=== PATIENT | female | born 1940 | race Caucasian/White ===

== ENCOUNTER 2019-04-28 16:28 | Observation (INO) | payer OTHER ==
[2019-04-28] MEDS ORDERED: MORPHINE 4 MG/ML SYR ONE (16:56)
[2019-04-28] MEDS ORDERED: ONDANSETRON 4 MG/2 ML VIAL ONE ×3 (16:56→21:24)
[2019-04-28 16:57] LABS: Absolute Lymphocytes (CBC) 3.3 K/uL (0.7-4.9); Basophils % 0.9 % (0-1.3); Hematocrit 40.9 % (36.0-45.0); Lymphocytes % 40.2 % (15.3-44.8); MPV 9.8 fL (7.6-11.3); RBC Red Blood Cell Count 4.47 M/uL (3.86-4.86)
[2019-04-28 17:05] LABS: Protime INR 0.97
--- NOTE | 2019-04-28 17:08 | RAD REPORT ---
EXAM DESCRIPTION: RAD - Chest Single View - 04/28/2019 4:56 pm CLINICAL HISTORY: CHEST PAIN COMPARISON: Two view chest April 25 TECHNIQUE: AP portable chest image was obtained 04/28/2019 4:56 pm . FINDINGS: Lungs are underinflated accentuating baseline interstitial pattern. No dense mass or conso lidation. No significant failure or volume overload. Heart and vasculature are normal. No measurable pleural effusion and no pneumothorax. No acute bony abnormality seen. No acute aortic findings suspec polo. IMPRESSION: No acute cardiopulmonary process. Baseline interstitial pattern is accentuated by shallow inspiration.
[2019-04-28 17:19] LABS: ALT/SGPT 22 U/L (12-78); AST/SGOT 21 U/L (15-37); Albumin 3.8 g/dL (3.4-5.0); Alkaline Phosphatase 96 U/L (45-117); BUN Blood Urea Nitrogen 22 mg/dL (7-18); Bicarbonate 26 mmol/L (21-32); Bilirubin Direct 0.1 mg/dL (0-0.2); Bilirubin Total 0.3 mg/dL (0.2-1.0); Glucose Level 87 mg/dL (74-106); Magnesium 2.2 mg/dL (1.8-2.4); NT PRO-BNP 472 pg/mL (<450); Potassium 4.2 mmol/L (3.5-5.1); Protein, Total 7.5 g/dL (6.4-8.2); Sodium Level 141 mmol/L (136-145); Troponin (Emerg Dept Use Only) < 0.02 ng/mL (0.0-0.045)
--- NOTE | 2019-04-28 17:53 | ER ---
Nurse's Notes [facility] Name: Elen Rapp Age: 79 yrs Sex: Female : 1940 Arrival Date: 04/28/2019 Time: 16:28 Bed 7 Private MD: Diagnosis: Chest pain, unspecified Presentation: 04/27 16:32 Chief complaint: Substernal chest pain, SOB, and nausea that started last night. Pain hb is described as pressure. Pt has heart cath scheduled next Monday with Dr. Mathew. Coronavirus screen: The patient has NOT traveled to a country currently being monitored by the [facility] within the last 14 days. The patient has NOT had contact with any known and/or suspected case of coronavirus. Proceed with normal triage procedures. Ebola Screen: No symptoms or risks identified at this time. Initial Sepsis Screen: Does the patient meet any 2 criteria? No. Patient's initial sepsis screen is negative. Does the patient have a suspected source of infection? No. Patient's initial sepsis screen is negative. Risk Assessment: Do you want to hurt yourself or someone else? Patient reports no desire to harm self or others. 16:32 Method Of Arrival: Ambulatory hb 16:32 Acuity: YAZ 3 hb Historical: - Allergies: 16:34 Propofol; hb - Home Meds: 16:37 levothyroxine oral [Active]; Lasix Oral [Active]; carvedilol oral oral [Active]; hb losartan oral oral [Active]; Oxybutynin Chloride Oral [Active]; alendronate oral oral [Active]; Vitamin D3 oral oral [Active]; - PMHx: 16:37 Hypertension; hb - Immunization history:: Adult Immunizations up to date. - Social history:: Smoking status: Patient denies any tobacco usage or history of. Screenin:37 Abuse screen: Denies threats or abuse. Denies injuries from another. Nutritional hb screening: No deficits noted. Tuberculosis screening: No symptoms or risk factors identified. Fall Risk None identified. Assessment: 16:40 General: Appears in no apparent distress. Behavior is cooperative, anxious. Pain: hb Complains of pain in chest Pain does not radiate. Pain currently is 7 out of 10 on a pain scale. Quality of pain is described as pressure, Pain began last night Is intermittent, lasting a few minutes. Neuro: Level of Consciousness is awake, alert, obeys commands, Oriented to person, place, time, situation. Cardiovascular: Heart tones S1 S2 present Capillary refill < 3 seconds Patient's skin is warm and dry. Respiratory: Airway is patent Respiratory effort is even, unlabored, Respiratory pattern is regular, symmetrical, Breath sounds are clear bilaterally. GI: No signs and/or symptoms were reported involving the gastrointestinal system. : No signs and/or symptoms were reported regarding the genitourinary system. EENT: No signs and/or symptoms were reported regarding the EENT system. Derm: Skin is pink, warm \T\ dry. Musculoskeletal: No signs and/or symptoms reported regarding the musculoskeletal system. 17:30 Reassessment: Patient appears in no apparent distress at this time. Patient and/or hb family updated on plan of care and expected duration. Pain level reassessed. Patient is alert, oriented x 3, equal unlabored respirations, skin warm/dry/pink. Patient denies pain at this time. Patient states symptoms have improved. 18:25 Reassessment: Patient appears in no apparent distress at this time. Patient and/or hb family updated on plan of care and expected duration. Pain level reassessed. Patient is alert, oriented x 3, equal unlabored respirations, skin warm/dry/pink. Admission ordered, awaiting room assignment at this time. Family at bedside. Patient denies pain at this time. Patient states feeling better. 19:30 General: Appears in no apparent distress. uncomfortable, Behavior is calm, cooperative, rr5 appropriate for age, for transfer to room 414. Pain: Denies pain. Neuro: Level of Consciousness is awake, alert, obeys commands, Oriented to person, place, time, situation. Cardiovascular: Capillary refill < 3 seconds Patient's skin is warm and dry. Respiratory: Airway is patent Respiratory effort is even, unlabored, Respiratory pattern is regular, symmetrical. GI: Reports nausea. : No signs and/or symptoms were reported regarding the genitourinary system. EENT: No signs and/or symptoms were reported regarding the EENT system. Derm: Skin is intact, is healthy with good turgor, Skin temperature is warm. Musculoskeletal: No signs and/or symptoms reported regarding the musculoskeletal system. Vital Signs: 16:32 BP 145 / 68; Pulse 69; Resp 16; Temp 98.2; Pulse Ox 100% ; Weight 86.18 kg; Height 5 hb ft. 3 in. (160.02 cm); Pain 7/10; 17:22 BP 131 / 53; Pulse 56; Resp 16; Pulse Ox 97% ; sv 18:15 BP 122 / 94; Pulse 88; Resp 16; Pulse Ox 98% on R/A; Pain 0/10; hb 19:14 BP 115 / 67; Pulse 62; Resp 16; Temp 98.3; Pulse Ox 99% ; Pain 0/10; rr5 16:32 Body Mass Index 33.66 (86.18 kg, 160.02 cm) hb ED Course: 16:28 Patient arrived in ED. mr 16:32 Alma Soto, RN is Primary Nurse. hb 16:34 Triage completed. hb 16:34 Arm band placed on. hb 16:37 Patient has correct armband on for positive identification. Placed in gown. Bed in low hb position. Call light in reach. satellite project site monitor on. Pulse ox on. NIBP on. 16:37 Oxygen administration via nasal cannula. hb 16:40 Leighton Wilcox, AUDITOR APPRAISER is PHCP. pm1 16:40 Yuriy Hamilton MD is Attending Physician. pm1 16:45 EKG done, by ED staff, reviewed by Yuriy Hamilton MD. kj1 16:55 XRAY Chest (1 view) In Process Unspecified. EDMS 17:00 Initial lab(s) drawn, by az, sent to lab. Inserted saline lock: 22 gauge in right kj1 antecubital area, using aseptic technique. Blood collected. 17:52 Chong Sanford is Hospitalizing Provider. pm1 19:33 No provider procedures requiring assistance completed. Patient admitted, IV remains in rr5 place. intact, No redness/swelling at site. Administered Medications: 16:56 Drug: morphine 4 mg Route: IVP; Site: right antecubital; hb 17:25 Follow up: Response: No adverse reaction hb 16:56 Drug: Zofran (Ondansetron) 4 mg Route: IVP; Site: right antecubital; hb 17:25 Follow up: Response: No adverse reaction hb 18:30 Drug: Lovenox 1 mg/kg Route: Sub-Q; Site: abdomen; hb 19:36 Follow up: Response: No adverse reaction rr5 18:30 Drug: Aspirin 325 mg Route: PO; hb 19:36 Follow up: Response: No adverse reaction rr5 19:23 Drug: Zofran (Ondansetron) 4 mg Route: IVP; Site: right antecubital; rr5 19:36 Follow up: Response: No adverse reaction rr5 Outcome: 17:52 Decision to Hospitalize by Provider. pm1 19:33 Admitted to Tele accompanied by tech, via stretcher, room 414, with chart, Report rr5 called to mariely 19:33 Condition: stable 19:33 Instructed on the need for admit. 20:01 Patient left the ED. rr5 Signatures: Dispatcher [employer] EDBella Lynne RN RN sv Rivera, Mary mr Marinas, Patrick, AUDITOR APPRAISER AUDITOR APPRAISER pm1 Alma Soto, Ernst Harrison RN, RN RN rr5 Trish Greene kj1
--- NOTE | 2019-04-28 17:53 | EDPHYS ---
Physician Documentation [facility] Name: Elen Rapp Age: 79 yrs Sex: Female : 1940 Arrival Date: 04/28/2019 Time: 16:28 Bed 7 Private MD: ED Physician Yuriy Hamilton HPI: 04/27 17:05 This 79 yrs old Female presents to ER via Ambulatory with complaints of Chest pm1 Pain. 17:05 The patient or guardian reports chest pain that is located primarily in the mid-sternal pm1 area. Onset: last night. The pain does not radiate. Associated signs and symptoms: Pertinent positives: shortness of breath, Pertinent negatives: abdominal pain, cough, diaphoresis, dizziness, nausea, palpitations, vomiting. The chest pain is described as a pressure. Duration: The patient or guardian reports a single episode, that is still ongoing, but improving. Modifying factors: The symptoms are alleviated by nothing. the symptoms are aggravated by nothing. Severity of pain: At its worst the pain was Started as 5/10 last night and at it's worse 8/10, in the emergency department the pain is a 5 / 10. The patient has been recently seen by a physician: Dr. Kumar last week for her on and off chest pain for the last month. Patient had stress test last week that was abnormal and she is scheduled for a cardiac cath on Monday. Historical: - Allergies: 16:34 Propofol; hb - Home Meds: 16:37 levothyroxine oral [Active]; Lasix Oral [Active]; carvedilol oral oral [Active]; hb losartan oral oral [Active]; Oxybutynin Chloride Oral [Active]; alendronate oral oral [Active]; Vitamin D3 oral oral [Active]; - PMHx: 16:37 Hypertension; hb - Immunization history:: Adult Immunizations up to date. - Social history:: Smoking status: Patient denies any tobacco usage or history of. ROS: 17:05 Constitutional: Negative for fever, chills, and weight loss. pm1 17:05 Abdomen/GI: Negative for abdominal pain, nausea, vomiting, diarrhea, and constipation, Back: Negative for injury and pain. 17:05 MS/Extremity: Negative for injury and deformity, Skin: Negative for injury, rash, and discoloration, Neuro: Negative for headache, weakness, numbness, tingling, and seizure. 17:05 Cardiovascular: Positive for chest pain, Negative for edema, orthopnea, palpitations. 17:05 Respiratory: Positive for shortness of breath, Negative for cough, sputum production, wheezing. 17:05 All other systems are negative. Exam: 17:05 Constitutional: This is a well developed, well nourished patient who is awake, alert, pm1 and in no acute distress. Head/Face: Normocephalic, atraumatic. Neck: Trachea midline, no thyromegaly or masses palpated, and no cervical lymphadenopathy. Supple, full range of motion without nuchal rigidity, or vertebral point tenderness. No Meningismus. Chest/axilla: Normal chest wall appearance and motion. Nontender with no deformity. No lesions are appreciated. Cardiovascular: Regular rate and rhythm with a normal S1 and S2. No gallops, murmurs, or rubs. No pulse deficits. Respiratory: Lungs have equal breath sounds bilaterally, clear to auscultation and percussion. No rales, rhonchi or wheezes noted. No increased work of breathing, no retractions or nasal flaring. Abdomen/GI: Soft, non-tender, with normal bowel sounds. No distension or tympany. No guarding or rebound. No evidence of tenderness throughout. Back: No spinal tenderness. No costovertebral tenderness. Full range of motion. Skin: Warm, dry with normal turgor. Normal color with no rashes, no lesions, and no evidence of cellulitis. MS/ Extremity: Pulses equal, no cyanosis. Neurovascular intact. Full, normal range of motion. 17:05 Neuro: Orientation: is normal, Motor: is normal, moves all fours. Vital Signs: 16:32 BP 145 / 68; Pulse 69; Resp 16; Temp 98.2; Pulse Ox 100% ; Weight 86.18 kg; Height 5 hb ft. 3 in. (160.02 cm); Pain 7/10; 17:22 BP 131 / 53; Pulse 56; Resp 16; Pulse Ox 97% ; sv 18:15 BP 122 / 94; Pulse 88; Resp 16; Pulse Ox 98% on R/A; Pain 0/10; hb 19:14 BP 115 / 67; Pulse 62; Resp 16; Temp 98.3; Pulse Ox 99% ; Pain 0/10; rr5 16:32 Body Mass Index 33.66 (86.18 kg, 160.02 cm) hb MDM: 16:43 Patient medically screened. jacques 17:24 ED course: Patient is chest pain free with morphine given in the ER. pm1 17:27 Data reviewed: vital signs. Data interpreted: Pulse oximetry: on room air is 97 %. pm1 Interpretation: normal. 17:27 Counseling: I had a detailed discussion with the patient and/or guardian regarding: the pm1 historical points, exam findings, and any diagnostic results supporting the discharge/admit diagnosis, lab results, radiology results, the need for further work-up and treatment in the hospital. 17:33 Physician consultation: Chong Sanford was contacted at 17:33, regarding admission, pm1 patient's condition, would like me to contact Dr. Zambrano prior to admission. 17:45 Physician consultation: Christopher Mathew MD was called at 17:33, was contacted at 17:43, pm1 regarding consult, patient's condition, and will see patient tomorrow, Wants one does of Lovenox and continue patient's aspirin and blood pressure medications. 04/27 16:40 Order name: Basic Metabolic Panel; Complete Time: 17:24 pm1 04/27 16:40 Order name: CBC with Diff; Complete Time: 17:12 pm1 04/27 16:40 Order name: LFT's; Complete Time: 17:24 pm1 04/27 16:40 Order name: Magnesium; Complete Time: 17:24 pm1 04/27 16:40 Order name: NT PRO-BNP; Complete Time: 17:24 pm1 04/27 16:40 Order name: PT-INR; Complete Time: 17:12 pm1 04/27 16:40 Order name: Troponin (emerg Dept Use Only); Complete Time: 17:24 pm1 04/27 16:40 Order name: XRAY Chest (1 view); Complete Time: 17:12 pm1 04/27 16:40 Order name: EKG; Complete Time: 16:42 pm1 04/27 16:40 Order name: Cardiac monitoring; Complete Time: 16:50 pm1 04/27 16:41 Order name: EKG - Nurse/Tech; Complete Time: 16:50 pm1 04/27 16:41 Order name: IV Saline Lock; Complete Time: 16:50 pm1 04/27 16:41 Order name: Labs collected and sent; Complete Time: 16:50 pm1 04/27 16:41 Order name: O2 Per Protocol; Complete Time: 16:50 pm1 04/27 16:41 Order name: O2 Sat Monitoring; Complete Time: 16:50 pm1 Administered Medications: 16:56 Drug: morphine 4 mg Route: IVP; Site: right antecubital; hb 17:25 Follow up: Response: No adverse reaction hb 16:56 Drug: Zofran (Ondansetron) 4 mg Route: IVP; Site: right antecubital; hb 17:25 Follow up: Response: No adverse reaction hb 18:30 Drug: Lovenox 1 mg/kg Route: Sub-Q; Site: abdomen; hb 19:36 Follow up: Response: No adverse reaction rr5 18:30 Drug: Aspirin 325 mg Route: PO; hb 19:36 Follow up: Response: No adverse reaction rr5 19:23 Drug: Zofran (Ondansetron) 4 mg Route: IVP; Site: right antecubital; rr5 19:36 Follow up: Response: No adverse reaction rr5 Disposition: 04/28 10:37 Co-signature as Attending Physician, Yuriy Hamilton MD I agree with the assessment and jacques plan of care. Disposition: 04/28/19 17:52 Hospitalization ordered by Chong Sanford for Inpatient Admission. Preliminary diagnosis is Chest pain, unspecified. - Bed requested for Telemetry/MedSurg (Inpatient). - Status is Inpatient Admission. rr5 - Condition is Stable. - Problem is new. - Symptoms have improved. Signatures: Dispatcher [employer] EDID Leidy Horta RN RN dw Anderson, Corey, MD MD cha Marinas, Patrick, PLATE SETTER PLATE SETTER pm1 Alma Soto RN RN hb Roque, Raymond, RN RN rr5 Corrections: (The following items were deleted from the chart) 04/27 19:07 17:52 Hospitalization Ordered by Chong Sanford for Inpatient Admission. Preliminary dw diagnosis is Chest pain, unspecified. Bed requested for Telemetry/MedSurg (Inpatient). Status is Inpatient Admission. Condition is Stable. Problem is new. Symptoms have improved. pm1 20:01 19:07 04/28/2019 17:52 Hospitalization Ordered by Chong Sanford for Inpatient rr5 Admission. Preliminary diagnosis is Chest pain, unspecified. Bed requested for Telemetry/MedSurg (Inpatient). Status is Inpatient Admission. Condition is Stable. Problem is new. Symptoms have improved. dw
[2019-04-28] MEDS ORDERED: ASPIRIN 325 MG TAB ONE (18:15)
[2019-04-28] MEDS ORDERED: ENOXAPARIN 80 MG/0.8 ML SQ ONE (18:15)
--- NOTE | 2019-04-28 18:35 | P.HP ---
Certification for Inpatient Patient admitted to: Observation With expected LOS: <2 Midnights Practitioner: I am a practitioner with admitting privileges, knowledge of patient current condition, hospital course, and medical plan of care. Services: Services provided to patient in accordance with Admission requirements found in Title 42 Section 412.3 of the Code of Federal Regulations Patient History Date of Service: 04/28/19 Reason for admission: Chest pain History of Present Illness: 79-year-old man with a history of hypothyroidism and factor V laden presented to the ED with a complaint of recurrent chest pain which has become progressively worse. Patient is being followed by Dr. Mathew. She recently had a stress test done which was reported as abnormal. Patient is planned for cardiac catheterization. She presents to the ED today with a complaint of chest pain, maximum intensity 8/10, relieved by morphine, chest pain not reproducible by palpation. Her initial troponin in the ED is negative. EKG report Q-waves in lead V1 and V2 and poor R-wave progression. Chest x-ray shows no acute disease. Dr. Mathew was informed by the ED provider the recommended a shot of full dose Lovenox and hospitalization for him to evaluate in a.m. Allergies propofol Allergy (Verified 04/26/19 08:41) Anaphylaxis - Past Medical/Surgical History -: Hypothyroidism -: Factor V Laden deficiency -: Hysterectomy -: CS - Social History Smoking Status: Former smoker Alcohol use: Yes CD- Drugs: No Place of Residence: Home Review of Systems Other: Except as documented, all other systems reviewed and negative. Physical Examination - Physical Exam General: Alert, In no apparent distress, Oriented x3 HEENT: Normocephalic, Mucous membr. moist/pink, Sclerae nonicteric Neck: Supple, JVD not distended Respiratory: Clear to auscultation bilaterally, Normal air movement Cardiovascular: Regular rate/rhythm, Normal S1 S2, No murmurs, Edema (Trace bilateral lower extremity pitting edema) Capillary refill: <2 Seconds Gastrointestinal: Normal bowel sounds, Soft and benign, Non-distended, No tenderness Musculoskeletal: No swelling, No erythema Integumentary: No rashes, No tenderness/swelling Neurological: Normal speech, Normal strength at 5/5 x4 extr - Studies Laboratory Data (last 24 hrs) 04/28/19 16:50: PT 11.5, INR 0.97 04/28/19 16:50: WBC 8.2 D, Hgb 13.7, Hct 40.9, Plt Count 251 04/28/19 16:50: Sodium 141, Potassium 4.2, BUN 22 H, Creatinine 1.07, Glucose 87 , Magnesium 2.2, Total Bilirubin 0.3, AST 21, ALT 22, Alkaline Phosphatase 96 Assessment and Plan - Problems (Diagnosis) (1) Chest pain Current Visit: Yes Status: Acute (2) Hypothyroidism Current Visit: Yes Status: Chronic (3) Factor 5 Leiden mutation, heterozygous Current Visit: Yes Status: Chronic - Plan Place under observation Continue to trend troponin Full-dose Lovenox given in the ED Aspirin, plavix Beta-tc, blood pressure control. Statins NTG p.r.n. Cardiology consult. Check TSH and continue Synthroid - Advance Directives Does patient have a Living Will: No Does patient have a Durable POA for Healthcare: No - Code Status/Comfort Care Code Status Assessed: Yes Code Status: Full Code
[2019-04-28] MEDS ORDERED: MORPHINE 4 MG/ML SYR IV PRN (20:31)
[2019-04-28] MEDS ORDERED: NITROGLYCERIN 0.4 MG/TAB SL PRN (20:31)
[2019-04-28] MEDS: METOPROLOL TAR 50 MG TAB PO SCH (21:00)
[2019-04-28 21:09] LABS: HDL Cholesterol 50 mg/dL (40-60); LDL Cholesterol, Calculated 117 (<130); Troponin I < 0.02 ng/mL (0.0-0.045)
[2019-04-28] MEDS ORDERED: ONDANSETRON 4 MG/2 ML VIAL IV PRN (21:21)
[2019-04-28 22:33] VITALS: BMI 33.6
--- NOTE | 2019-04-28 23:05 | CON ---
Date of Consultation: 04/28/2019 Reason For Consultation: Chest pain. History Of Present Illness: Ms. Taylor is a patient who is 79 years old who I saw in the office re cently for chest pain and had a positive stress test. She was actually scheduled to have a catheteri zation as an outpatient on April 30, 2019, but she came into the hospital today with a 6/10 chest balta n unrelieved with nitroglycerin, unremarkable EKG and troponin. She denied PND, orthopnea, pedal shirin ma, palpitations, or syncope. Her chest pain was substernal, radiated to the left arm, had some shor tness of breath with it. Had no fevers or chills. Has some diaphoresis. Past Medical History: Include hypertension, osteoporosis, hypothyroidism. Allergies: PROPOFOL. Review of Systems: Negative. Social History: Negative. Family History: Noncontributory. Physical Examination: Vital Signs: Blood pressure was 145/68, pulse of 69, respiratory rate 16, she was afebrile. Oxygen saturation was 100%. She weighed 86 kg. She was in a sinus rhythm. She was in no acute distress. HEENT: Negative. Neck: Supple with no bruit. Chest: Clear to auscultation and percussion. Cardiac: Reveals a regular rhythm and rate. No murmurs, gallops, or rubs. Abdomen: Benign. Extremities: Revealed no clubbing, cyanosis, or edema. Diagnostic Data: Chest x-ray was negative. Her CBC was normal. She had a BNP of 472 with a negativ e troponin. Her creatinine was 1.07. EKG is unremarkable. Impression And Plan: Ms. Taylor is a patient who has hypertension, had an abnormal stress test, ch est pain that is consistent with angina. She had planned to have a catheterization as an outpatient on Monday, but got admitted today. We will plan for catheterization tomorrow. Patient understands the risks and the benefits of the procedure and she agrees to proceed. Her other problems include hy pothyroidism status post hysterectomy. NB/MODL Voice ID: [id number] Report ID: [id number]
[2019-04-29] MEDS ORDERED: LIDOCAINE 1% 20 ML MDV ONE (06:53)
[2019-04-29] MEDS ORDERED: HEPA 1000U/500MLS 2,000 UNIT/1,000 ML BAG IV ONE (06:53)
--- NOTE | 2019-04-29 06:56 | EKG ---
Test Date: 2019-04-28 Test Time: 16:36:47 Bobcat Driver/Labor: TANMAY MEASUREMENT RESULTS: Intervals: Rate: 59 RI: 160 QRSD: 84 QT: 430 QTc: 425 [place]: P: 48 RI: 160 QRS: 8 T: 66 INTERPRETIVE STATEMENTS: Sinus bradycardia Septal infarct, age undetermined Abnormal ECG Compared to ECG 04/26/2019 07:59:29 Myocardial infarct finding now present Electronically Signed On 04-29-19 06:54:48 CDT by Christopher Mathew
[2019-04-29] MEDS ORDERED: HEPARIN 5000 UNIT/ML 1 ML VIAL ONE (07:18)
[2019-04-29] MEDS ORDERED: MIDAZOLAM HCL 2 MG/2 ML INJ ONE ×2 (07:18→08:08)
[2019-04-29] MEDS ORDERED: FENTANYL CITR 100 MCG/2 ML ONE (07:19)
[2019-04-29] MEDS ORDERED: NITROGLYCERIN 100 MCG/ML SYR (for cath lab use only) IV ONE (07:19)
[2019-04-29] MEDS ORDERED: NA CHLORIDE 0.9% 0 ML ONE (07:19)
[2019-04-29] MEDS ORDERED: ATROPINE SULF 1 MG/10 ML SYR IV ONE (07:19)
[2019-04-29] MEDS ORDERED: NICARDIPINE HCL 25 MG/10 ML IV ONE (07:19)
[2019-04-29] MEDS ORDERED: NITROGLYCERIN/D5W 0 MG/0 ML BTL IV ONE (07:19)
[2019-04-29] MEDS ORDERED: NA CHLORIDE 0.9% 500 ML ONE (07:45)
[2019-04-29] MEDS ORDERED: ASPIRIN EC 81 MG TAB PO SCH (09:00)
[2019-04-29] MEDS: METOPROLOL TAR 50 MG TAB PO SCH (09:00)
--- NOTE | 2019-04-29 11:00 | P.DS ---
Addendum entered and electronically signed by Сергей Bond PA 04/29/19 11:12 : Diagnosis: Osteoporosis, HTN, HF, Hypothyroidism, Overactive Bladder, Acute Chest Pain unspecified Original Note: Admission Date: 04/28/19 Discharge Date: 04/29/19 Primary Care Provider: PCP Reason for Admission: Chest pain Consultations: Dr. Mathew Procedures: Angiogram Brief History of Present Illness: 79-year-old man with a history of hypothyroidism and factor V laden presented to the ED with a complaint of recurrent chest pain which has become progressively worse. Patient is being followed by Dr. Mathew. She recently had a stress test done which was reported as abnormal. Patient is planned for cardiac catheterization. She presents to the ED yesterday with a complaint of chest pain, maximum intensity 8/10, relieved by morphine, chest pain not reproducible by palpation. Her initial troponin in the ED is negative. EKG report Q-waves in lead V1 and V2 and poor R-wave progression. Chest x-ray shows no acute disease. Dr. Mathew was informed by the ED provider the recommended a shot of full dose Lovenox and hospitalization for him to evaluate in a.m. Hospital Course: Patient underwent angiogram this AM which did not reveal acute blockage. Patient remained stable overnight and did well during catherization and post cath. Will d/c home today to f/u with PCP and Dr. Mathew. No other interventions need to be done at this time and no other new medications need to be started. Labs have remained stable. <Сергей Bond - Last Filed: 04/29/19 10:54> Admission Date: 04/28/19 Discharge Date: 04/29/19 Procedures: Heart Cath: Surgeon: Sidney White MD Identification: 79-year-old woman. Procedure: Left heart catheterization with coronary left ventricular angiography. Procedure Findings: The patient has normal coronary arteries. Normal left ventricular ejection fraction. Normal segmental wall motion. Normal pressures and therefore the stress test is a false positive. Her symptoms are believed to be not related to the heart. Complications: From the procedure none. Estimated Blood Loss: 10 cc. Medical problem list: Chest pain status post heart catheterization showing normal coronaries and ejection fraction Chronic diastolic CHF Hypothyroidism Hypertension Hospital Course: Case discussed and reviewed with TELLO Mooney Patient presented with chest pain. Patient was evaluated by Cardiology. Cardiology recommended heart catheterization to further evaluate. Heart catheterization showed normal coronaries and ejection fraction. No further intervention was required. At discharge patient will continue with her current medications. Patient may follow up with cardiology as an outpatient. Patient with history of hypertension, hypothyroidism and chronic diastolic CHF. Patient will continue with her current medications. Recommend to continue a 1500 cc per day fluid restriction and low-salt diet. Patient to monitor her weight daily. If her weight increases by more than 5 lb she is to contact her PCP for further recommendation. Patient may need to see GI as an outpatient if chest pain persists in consideration of normal heart catheterization. Patient would likely benefit with a EGD. This can be further addressed as an outpatient. <Terence Villagran - Last Filed: 04/29/19 17:56> Disposition: ROUTINE DISCHARGE Discharge Condition: GOOD Vital Signs/Physical Exam: Temp Pulse Resp BP Pulse Ox 98.1 F 58 18 124/58 L 99 04/29/19 10:05 04/29/19 10:05 04/29/19 10:05 04/29/19 10:05 04/29/19 09:33 General: Alert, In no apparent distress, Oriented x3 HEENT: Normocephalic, PERRLA, Mucous membr. moist/pink, EOMI Neck: Supple, JVD not distended Respiratory: Clear to auscultation bilaterally, Normal air movement Cardiovascular: No edema, Normal pulses, Regular rate/rhythm, Normal S1 S2, No gallops, No rubs, No murmurs Capillary refill: <2 Seconds Gastrointestinal: Normal bowel sounds, Soft and benign, Non-distended, No ascites, No tenderness, No masses, No rebound, No guarding Musculoskeletal: No clubbing, No swelling, No contractures, No erythema, No tenderness, No warmth Integumentary: No rashes, No breakdown, No significant lesion, No tenderness/ swelling, No erythema, No warmth, No cyanosis Neurological: Normal speech, Normal strength at 5/5 x4 extr, Normal tone, Sensation intact, Cranial nerves 3-12 intact, Normal reflexes 2+, Normal affect Lymphatics: No axilla or inguinal lymphadenopathy Laboratory Data at Discharge: WBC 8.2 K/uL (4.3-10.9) D 04/28/19 16:50 Hgb 13.7 g/dL (12.0-15.0) 04/28/19 16:50 Hct 40.9 % (36.0-45.0) 04/28/19 16:50 Plt Count 251 K/uL (152-406) 04/28/19 16:50 PT 11.5 SECONDS (9.5-12.5) 04/28/19 16:50 INR 0.97 04/28/19 16:50 Sodium 141 mmol/L (136-145) 04/28/19 16:50 Potassium 4.2 mmol/L (3.5-5.1) 04/28/19 16:50 BUN 22 mg/dL (7-18) H 04/28/19 16:50 Creatinine 1.07 mg/dL (0.55-1.3) 04/28/19 16:50 Glucose 87 mg/dL (74-106) 04/28/19 16:50 Magnesium 2.2 mg/dL (1.8-2.4) 04/28/19 16:50 Total Bilirubin 0.3 mg/dL (0.2-1.0) 04/28/19 16:50 AST 21 U/L (15-37) 04/28/19 16:50 ALT 22 U/L (12-78) 04/28/19 16:50 Alkaline Phosphatase 96 U/L (45-117) 04/28/19 16:50 Troponin I < 0.02 ng/mL (0.0-0.045) 04/29/19 00:54 Triglycerides 99 mg/dL (<150) 04/28/19 20:43 Cholesterol 187 mg/dL (<200) 04/28/19 20:43 HDL Cholesterol 50 mg/dL (40-60) 04/28/19 20:43 Cholesterol/HDL Ratio 3.74 04/28/19 20:43 <Сергей Bond - Last Filed: 04/29/19 10:54> Vital Signs/Physical Exam: Temp Pulse Resp BP Pulse Ox 98.9 F 67 18 116/58 L 97 04/29/19 13:35 04/29/19 13:35 04/29/19 13:35 04/29/19 13:35 04/29/19 12:00 Laboratory Data at Discharge: WBC 8.2 K/uL (4.3-10.9) D 04/28/19 16:50 Hgb 13.7 g/dL (12.0-15.0) 04/28/19 16:50 Hct 40.9 % (36.0-45.0) 04/28/19 16:50 Plt Count 251 K/uL (152-406) 04/28/19 16:50 PT 11.5 SECONDS (9.5-12.5) 04/28/19 16:50 INR 0.97 04/28/19 16:50 Sodium 141 mmol/L (136-145) 04/28/19 16:50 Potassium 4.2 mmol/L (3.5-5.1) 04/28/19 16:50 BUN 22 mg/dL (7-18) H 04/28/19 16:50 Creatinine 1.07 mg/dL (0.55-1.3) 04/28/19 16:50 Glucose 87 mg/dL (74-106) 04/28/19 16:50 Magnesium 2.2 mg/dL (1.8-2.4) 04/28/19 16:50 Total Bilirubin 0.3 mg/dL (0.2-1.0) 04/28/19 16:50 AST 21 U/L (15-37) 04/28/19 16:50 ALT 22 U/L (12-78) 04/28/19 16:50 Alkaline Phosphatase 96 U/L (45-117) 04/28/19 16:50 Troponin I < 0.02 ng/mL (0.0-0.045) 04/29/19 00:54 Triglycerides 99 mg/dL (<150) 04/28/19 20:43 Cholesterol 187 mg/dL (<200) 04/28/19 20:43 HDL Cholesterol 50 mg/dL (40-60) 04/28/19 20:43 Cholesterol/HDL Ratio 3.74 04/28/19 20:43 <Terence Villagran - Last Filed: 04/29/19 17:56> Patient Discharge Instructions: Patient to rest for next couple of days. To watch for bleeding or hematoma from catheterization site. Needs to Follow up with Dr. Mathew as requested for f/u on catheterization. To continue home medications as prescribed. Low sodium diet. 1500 ml fluid restriction per day to insure she does not volume overload. If worse to come back to ED for further evaluation Diet: Low sodium Activity: Ad elda Time spent managing pt's care (in minutes): 30 <Сергей Bond - Last Filed: 04/29/19 10:54> <Terence Villagran - Last Filed: 04/29/19 17:56> Home Medications: Alendronate Sodium 35 mg PO EVERY 7TH DAY 04/29/19 Carvedilol [Coreg] 3.125 mg PO DAILY 04/29/19 Cholecalciferol (Vitamin D3) [Vitamin D3] 125 mcg PO DAILY 04/29/19 Furosemide [Lasix*] 20 mg PO DAILY 04/29/19 Levothyroxine [Synthroid*] 100 mcg PO [id number] 04/29/19 Losartan Potassium 25 mg PO DAILY 04/29/19 Oxybutynin Chloride [Ditropan*] 5 mg PO BID 04/29/19 Followup: Christopher Mathew MD [ACTIVE - CAN ADMIT] -
--- NOTE | 2019-04-29 12:15 | OP ---
Surgeon: Sidney White MD Identification: 79-year-old woman. Procedure: Left heart catheterization with coronary left ventricular angiography. Procedure Findings: The patient has normal coronary arteries. Normal left ventricular ejection frac tion. Normal segmental wall motion. Normal pressures and therefore the stress test is a false posit david. Her symptoms are believed to be not related to the heart. Procedure In Detail: The patient was brought to the cardiac flower shop laborer/designer fasting. She failed a Barbeau test, so we abandoned any thoughts of using a radial approach, we used the right femoral approach. T he patient was prepared and draped in usual sterile fashion, sedated with Versed and fentanyl. Right femoral artery was identified through palpation. Tissues around the artery were anesthetized using 1% lidocaine. The artery was entered using an 18-gauge needle, cannulated with a short 0.035 J-wire and then a 4-Welsh sheath was placed. We flushed the sheath and used it to place a 4-Welsh JL4, 4- Welsh 3DRC, 4-Welsh angled pigtail into their respective locations. Catheters were removed over a J-wire. At the end of the procedure when it was evident no intervention would be indicated, we took a sheath shot through the sheath and elected to use a StarClose device to close the arteriotomy. Complications: From the procedure none. Estimated Blood Loss: 10 cc. Hassock Maker: Marilynn Gaona. RENNY/EMILY Voice ID: [id number] Report ID: [id number]
[2019-04-29 13:52] VITALS: BP 116/58; O2SAT 98
[2019-04-29 14:10] VITALS: TEMP 98.9
== END 2019-04-29 14:11 | disposition home or self-care (01) ==
LOC: ER 16:28 → ERHOLD 18:53 → 4TH 19:34
PROVIDERS: ADMIT Internal Medicine; ATTEND Family Medicine
DX: R07.9 Chest pain, unspecified (principal); R94.39 Abnormal result of other cardiovascular function study; E03.9 Hypothyroidism, unspecified; D68.51 Activated protein C resistance; I11.0 Hypertensive heart disease with heart failure; I50.22 Chronic systolic (congestive) heart failure; R00.1 Bradycardia, unspecified; R94.31 Abnormal electrocardiogram [ECG] [EKG]; I65.21 Occlusion and stenosis of right carotid artery; I70.208 Unspecified atherosclerosis of native arteries of extremities, other extremity; I83.93 Asymptomatic varicose veins of bilateral lower extremities; M81.0 Age-related osteoporosis without current pathological fracture; E66.9 Obesity, unspecified; Z79.899 Other long term (current) drug therapy; Z95.1 Presence of aortocoronary bypass graft; Z87.891 Personal history of nicotine dependence
CPT/HCPCS: 93005; 85025; 80048; 36415; 83735; 85610; 80061; 80076; 84484 ×3; 83880; 71045; 93458; 94760; 96375; 96372; 96374; 99285; C1893; J2250 ×2; J3010; J1650; J7040; J2405 ×3; G0378 ×3; J0583; J1644

== ENCOUNTER 2020-02-14 06:09 | Inpatient (IN) | payer OTHER ==
[2020-02-14 06:55] LABS: Basophils % 0.9 % (0-1.3); Hematocrit 44.4 % (36.0-45.0); MPV 10.4 fL (7.6-11.3); RBC Red Blood Cell Count 4.89 M/uL (3.86-4.86)
[2020-02-14 07:02] LABS: ALT/SGPT 29 U/L (12-78); AST/SGOT 21 U/L (15-37); Albumin 3.9 g/dL (3.4-5.0); Alkaline Phosphatase 110 U/L (45-117); BUN Blood Urea Nitrogen 23 mg/dL (7-18); Bicarbonate 28 mmol/L (21-32); Bilirubin Direct < 0.1 mg/dL (0-0.2); Bilirubin Total 0.4 mg/dL (0.2-1.0); Glucose Level 164 mg/dL (74-106); Lipase 110 U/L (73-393); Potassium 4.2 mmol/L (3.5-5.1); Protein, Total 8.1 g/dL (6.4-8.2); Sodium Level 142 mmol/L (136-145)
--- NOTE | 2020-02-14 08:15 | RAD REPORT ---
EXAM DESCRIPTION: CT - Abdomen Pelvis W Contrast - 02/14/2020 7:53 am CLINICAL HISTORY: ABD PAIN COMPARISON: No comparisons TECHNIQUE: Biphasic, helical CT imaging of the abdomen and pelvis was performed following 100 ml non -ionic IV contrast. No oral contrast administered. All CT scans are performed using dose optimization technique as appropriate and may include automated exposure control or mA/KV adjustment according to patient size. FINDINGS: No suspicious findings in the lung bases. The liver, spleen, and pancreas show no suspicious findings. Gallbladder and biliary tree are also wi thout suspicious finding. Symmetric renal function is seen with no hydronephrosis or suspicious renal mass. No pyelonephritis o r acute parenchymal process. No bladder abnormalities. No adrenal abnormalities. The stomach is filled but not dilated by food and fluid. No gastric wall thickening or mass. No duode nal dilatation. The 2.5 centimeter diverticulum is present in the C-loop. Medially distal to the liga ment of [place] there is dilatation of the jejunum to 3 cm. Dilatation continues throughout the jejuna l loops. There is a tapered transition back to normal diameter small bowel at the ileum. No abrupt tr ansition or obstructing mass identified. No edema in the mesenteric fat. Patient has prominent sigmoid diverticulosis with redundancy. No diverticulitis. Fluid is present in the right-side of the colon. There is circumferential narrowing of the ascending colon several cm fro m a fatty ileocecal valve. This is favored to be peristalsis artifact. Similar but smaller areas of c ircumferential narrowing also seen in the right-side of the colon. No free air, free fluid or pneumatosis. No hernia, mass or bulky lymphadenopathy. Disc and bone degenerative change present. Arterial calcifications are present. IMPRESSION: Multiple dilated loops of jejunum with progressive tapering to normal diameter ileum. No transition point or obstructing mass. Prominent ileus or enteritis is favored over bowel obstruction. No free air or other surgically emergent finding. Several areas of circumferential narrowing of the ascending colon are present believed to be peristal sis affects. If the patient is to be admitted for the small bowel findings, repeat CT imaging could be performed t o re-evaluate the right-side colon following oral contrast when tolerable by the patient. Otherwise, repeat outpatient CT imaging with oral contrast could be performed or colonoscopy.
[2020-02-14] MEDS ORDERED: ONDANSETRON 4 MG/2 ML VIAL ONE ×2 (08:27→10:37)
[2020-02-14] MEDS ORDERED: FENTANYL CITR 100 MCG/2 ML ONE (08:27)
--- NOTE | 2020-02-14 09:03 | ER ---
Nurse's Notes [facility] Name: Elen Rapp Age: 80 yrs Sex: Female : 1940 Arrival Date: 02/14/2020 Time: 06:12 Bed 7 Private MD: Diagnosis: Intestinal obstruction Presentation: 02/13 06:24 Chief complaint: Patient states: I'VE BEEN HURTING AND THROWING UP SINCE 11PM LAST rv NIGHT. PATIENT POINTING TO HER EPIGASTRIC AREA, RADIATING TO THE BACK. PAIN SCALE OF 8/10, SHARP, FLUCTUATING. Coronavirus screen: Client denies travel out of the [place] in the last 14 days. At this time, the client does not indicate any symptoms associated with coronavirus-19. Ebola Screen: No symptoms or risks identified at this time. Initial Sepsis Screen: Does the patient meet any 2 criteria? No. Patient's initial sepsis screen is negative. Does the patient have a suspected source of infection? No. Patient's initial sepsis screen is negative. Risk Assessment: Do you want to hurt yourself or someone else? Patient reports no desire to harm self or others. Onset of symptoms was February 13, 2020 at 23:00. 06:24 Method Of Arrival: Ambulatory rv 06:24 Acuity: YAZ 3 rv Triage Assessment: 06:26 General: Appears uncomfortable, Behavior is calm, cooperative. Pain: Complains of pain rv in epigastric area Pain radiates to back Pain currently is 8 out of 10 on a pain scale. Quality of pain is described as sharp, Pain began 1 day ago. Is continuous. Neuro: Level of Consciousness is awake, alert, obeys commands, Oriented to person, place, time, situation. Cardiovascular: Patient's skin is warm and dry. Respiratory: Airway is patent Respiratory effort is even, unlabored. GI: Reports upper abdominal pain, nausea, vomiting. Derm: Skin is intact. Musculoskeletal:. Historical: - Allergies: : PROPOFOL; rv - PMHx: : Hypertension; Thyroid problem; CHF; rv - PSHx: 06:26 Hysterectomy; rv - Immunization history:: Adult Immunizations up to date. - Social history:: Smoking status: Patient/guardian denies using tobacco, the patient reports quitting approximately 50 years ago. Screenin:28 Abuse screen: Denies threats or abuse. Nutritional screening: No deficits noted. ea Tuberculosis screening: No symptoms or risk factors identified. Fall Risk IV access (20 points). 06:28 Abuse screen: Denies threats or abuse. Denies injuries from another. Nutritional rv screening: No deficits noted. Tuberculosis screening: No symptoms or risk factors identified. Fall Risk None identified. Assessment: 06:28 GI: Bowel sounds present X 4 quads. Abd is soft and non tender X 4 quads. rv 07:30 General: Appears in no apparent distress. uncomfortable. Pain: Complains of pain in em abdomen Pain currently is 10 out of 10 on a pain scale. Neuro: Level of Consciousness is awake, alert, obeys commands, Oriented to person, place, time, situation, Appropriate for age. Cardiovascular: Capillary refill < 3 seconds Patient's skin is warm and dry. Respiratory: Airway is patent Respiratory effort is even, unlabored, Respiratory pattern is regular, symmetrical. GI: Reports nausea, vomiting. Derm: Skin is intact, is healthy with good turgor, Skin is pink, warm \T\ dry. Musculoskeletal: Capillary refill < 3 seconds, Range of motion: intact in all extremities. 10:20 Reassessment: reports pain and nausea is coming back, provider notified, received new em medication orders. 10:33 Reassessment: Dr Sanford called to get admission orders, stated he would be here in 10 sv mins. 10:50 Reassessment: hospitalist at bedside. em 12:58 Reassessment: Patient appears in no apparent distress at this time. Patient and/or em family updated on plan of care and expected duration. Pain level reassessed. Patient is alert, oriented x 3, equal unlabored respirations, skin warm/dry/pink. rates pain 4/10. Vital Signs: 06:24 BP 142 / 72; Pulse 90; Resp 18; Temp 98.2; Pulse Ox 97% ; Weight 86.18 kg; Height 5 ft. rv 4 in. (162.56 cm); Pain 8/10; 07:30 BP 123 / 65; Pulse 79; Resp 18; Pulse Ox 95% on R/A; Pain 10/10; em 11:07 BP 123 / 67; Pulse 76; Resp 18; Pulse Ox 98% on R/A; em 12:51 BP 120 / 108; Pulse 74; Resp 18; Pulse Ox 98% on R/A; Pain 4/10; em 06:24 Body Mass Index 32.61 (86.18 kg, 162.56 cm) rv ED Course: 06:12 Patient arrived in ED. bp1 06:26 Triage completed. rv 06:27 Inserted saline lock: 20 gauge in right antecubital area, using aseptic technique. ea Blood collected. 06:28 Arm band placed on right wrist. Patient placed in the treatment room, on a stretcher, rv Patient notified of wait time. 06:28 Patient has correct armband on for positive identification. Pulse ox on. NIBP on. rv 06:28 Patient has correct armband on for positive identification. Bed in low position. Call ea light in reach. Side rails up X2. 07:08 Reymundo Minor, SHIN is Primary Nurse. em 07:10 Neal Cazares MD is Attending Physician. tw4 07:53 CT Abd/Pelvis - IV Contrast Only In Process Unspecified. EDMS 09:02 Chong Sanford is Hospitalizing Provider. tw4 10:40 NGT: inserted 14 Fr. via left nare. verified placement of air over stomach, verified em return of gastric contents, to intermittent suction. Returned gastric contents. Patient tolerated well. 10:55 COVID swab sent to lab. em 13:20 No provider procedures requiring assistance completed. Patient admitted, IV remains in em place. Administered Medications: 08:17 Drug: Zofran (Ondansetron) 4 mg Route: IVP; Site: right antecubital; em 09:54 Follow up: Response: No adverse reaction; Marked relief of symptoms em 08:19 Drug: fentaNYL (PF) 25 mcg Route: IVP; Site: right antecubital; em 09:54 Follow up: Response: No adverse reaction; Marked relief of symptoms; Pain is decreased em 10:16 Drug: fentaNYL (PF) 25 mcg Route: IVP; Site: right antecubital; em 11:06 Follow up: Response: No adverse reaction; Marked relief of symptoms; Pain is decreased; em RASS: Alert and Calm (0) 10:26 Drug: Zofran (Ondansetron) 4 mg Route: IVP; Site: right antecubital; em 11:05 Follow up: Response: No adverse reaction; Marked relief of symptoms; Nausea is decreasedem Output: 13:21 Gastric: 600ml (NGT); Total: 600ml. em Outcome: 09:03 Decision to Hospitalize by Provider. tw4 13:20 Admitted to Med/surg accompanied by tech, via wheelchair, room 220, Report called to thom Villalta RN 13:20 Condition: stable 13:20 Instructed on the need for admit, Demonstrated understanding of instructions. 13:39 Patient left the ED. em Signatures: Dispatcher [employer] Bella Rao, RN Reymundo Cordero RN RN em Antunez, Elena RN Neal Michele ea, MD MD tw4 Andrew Vides, RN RN Deepali Potter [facility]
--- NOTE | 2020-02-14 09:03 | EDPHYS ---
Physician Documentation [facility] Name: Elen Rapp Age: 80 yrs Sex: Female : 1940 Arrival Date: 02/14/2020 Time: 06:12 Bed 7 Private MD: ED Physician Neal Cazares HPI: 02/13 10:39 This 80 yrs old Female presents to ER via Ambulatory with complaints of tw4 Abdominal Pain, Vomiting. 10:39 The patient presents to the emergency department with nausea, vomiting, abdominal pain. tw4 Onset: The symptoms/episode began/occurred yesterday. Possible causes: unknown. The symptoms are aggravated by nothing. The symptoms are alleviated by nothing. Associated signs and symptoms: The patient has no apparent associated signs or symptoms. Severity of symptoms: At their worst the symptoms were moderate in the emergency department the symptoms have improved mildly. The patient has not experienced similar symptoms in the past. Historical: - Allergies: 06:26 PROPOFOL; rv - PMHx: 06:26 Hypertension; Thyroid problem; CHF; rv - PSHx: 06:26 Hysterectomy; rv - Immunization history:: Adult Immunizations up to date. - Social history:: Smoking status: Patient/guardian denies using tobacco, the patient reports quitting approximately 50 years ago. ROS: 10:39 Constitutional: Negative for fever, chills, and weight loss, Eyes: Negative for injury, tw4 pain, redness, and discharge, Cardiovascular: Negative for chest pain, palpitations, and edema, Respiratory: Negative for shortness of breath, cough, wheezing, and pleuritic chest pain, Back: Negative for injury and pain, MS/Extremity: Negative for injury and deformity, Skin: Negative for injury, rash, and discoloration, Neuro: Negative for headache, weakness, numbness, tingling, and seizure. 10:39 Abdomen/GI: Positive for abdominal pain, nausea and vomiting, nausea, vomiting, Negative for diarrhea. Exam: 10:39 Constitutional: This is a well developed, well nourished patient who is awake, alert, tw4 and in no acute distress. Head/Face: Normocephalic, atraumatic. Chest/axilla: Normal chest wall appearance and motion. Nontender with no deformity. No lesions are appreciated. Cardiovascular: Regular rate and rhythm with a normal S1 and S2. No gallops, murmurs, or rubs. Normal PMI, no JVD. No pulse deficits. Respiratory: Lungs have equal breath sounds bilaterally, clear to auscultation and percussion. No rales, rhonchi or wheezes noted. No increased work of breathing, no retractions or nasal flaring. Back: No spinal tenderness. No costovertebral tenderness. Full range of motion. Skin: Warm, dry with normal turgor. Normal color with no rashes, no lesions, and no evidence of cellulitis. MS/ Extremity: Pulses equal, no cyanosis. Neurovascular intact. Full, normal range of motion. Neuro: Awake and alert, GCS 15, oriented to person, place, time, and situation. Cranial nerves II-XII grossly intact. Motor strength 5/5 in all extremities. Sensory grossly intact. Cerebellar exam normal. Normal gait. 10:39 Abdomen/GI: Inspection: abdomen appears normal, Bowel sounds: diminished, Palpation: moderate abdominal tenderness, in the epigastric area. Vital Signs: 06:24 BP 142 / 72; Pulse 90; Resp 18; Temp 98.2; Pulse Ox 97% ; Weight 86.18 kg; Height 5 ft. rv 4 in. (162.56 cm); Pain 8/10; 07:30 BP 123 / 65; Pulse 79; Resp 18; Pulse Ox 95% on R/A; Pain 10/10; em 11:07 BP 123 / 67; Pulse 76; Resp 18; Pulse Ox 98% on R/A; em 12:51 BP 120 / 108; Pulse 74; Resp 18; Pulse Ox 98% on R/A; Pain 4/10; em 06:24 Body Mass Index 32.61 (86.18 kg, 162.56 cm) rv MDM: 07:11 Patient medically screened. tw4 10:42 Differential diagnosis: gastritis. Data reviewed: vital signs, nurses notes. Data tw4 reviewed: lab test result(s), CBC, electrolytes, hepatic panel, radiologic studies, CT scan. Data interpreted: Pulse oximetry: Interpretation: normal. Counseling: I had a detailed discussion with the patient and/or guardian regarding: the historical points, exam findings, and any diagnostic results supporting the discharge/admit diagnosis, lab results, radiology results. Physician consultation: Chong Sanford. 10:43 Physician consultation: regarding admission, to the telemetry unit. patient's tw4 condition, and will see patient in inpatient room. 02/13 06:27 Order name: Basic Metabolic Panel; Complete Time: 07:11 ea 02/13 06:27 Order name: CBC with Diff; Complete Time: 07:11 ea 02/13 06:27 Order name: Hepatic Function; Complete Time: 07:11 ea 02/13 06:27 Order name: Lipase; Complete Time: 07:11 ea 02/13 12:07 Order name: SARS-COV-2 RT PCR EDSC 02/13 07:12 Order name: CT Abd/Pelvis - IV Contrast Only; Complete Time: 08:50 tw4 02/13 08:06 Order name: US Abdomen Limited tw4 02/13 10:57 Order name: Abdomen 1 View (KUB) XRAY tw4 02/13 12:11 Order name: RAD EDSC 02/13 06:27 Order name: IV Saline Lock; Complete Time: 06:27 ea 02/13 06:27 Order name: Labs collected and sent; Complete Time: 06:29 ea 02/13 09:54 Order name: Nasogastric Tube; Complete Time: 10:40 tw4 Administered Medications: 08:17 Drug: Zofran (Ondansetron) 4 mg Route: IVP; Site: right antecubital; em 09:54 Follow up: Response: No adverse reaction; Marked relief of symptoms em 08:19 Drug: fentaNYL (PF) 25 mcg Route: IVP; Site: right antecubital; em 09:54 Follow up: Response: No adverse reaction; Marked relief of symptoms; Pain is decreased em 10:16 Drug: fentaNYL (PF) 25 mcg Route: IVP; Site: right antecubital; em 11:06 Follow up: Response: No adverse reaction; Marked relief of symptoms; Pain is decreased; em RASS: Alert and Calm (0) 10:26 Drug: Zofran (Ondansetron) 4 mg Route: IVP; Site: right antecubital; em 11:05 Follow up: Response: No adverse reaction; Marked relief of symptoms; Nausea is decreasedem Disposition: 02/14/20 09:03 Hospitalization ordered by Chong Sanford for Inpatient Admission. Preliminary diagnosis is Intestinal obstruction. - Bed requested for Telemetry/MedSurg (Inpatient). - Status is Inpatient Admission. em - Condition is Stable. - Problem is new. - Symptoms are unchanged. Signatures: Dispatcher [employer] [facility] Leidy Horta, RN SHIN Reymundo Minor, RN RN Latia Noguera, RN Neal Michele ea, MD MD tw4 Andrew Vides RN RN rv Corrections: (The following items were deleted from the chart) 11:20 10:43 CORONAVIRUS+MR.LAB.BRZ ordered. [facility] 12:37 09:03 Hospitalization Ordered by Chong Sanford for Inpatient Admission. Preliminary diagnosis is Intestinal obstruction. Bed requested for Telemetry/MedSurg (Inpatient). Status is Inpatient Admission. Condition is Stable. Problem is new. Symptoms are unchanged. 4 13:39 12:37 02/14/2020 09:03 Hospitalization Ordered by Chong Sanford for Inpatient em Admission. Preliminary diagnosis is Intestinal obstruction. Bed requested for Telemetry/MedSurg (Inpatient). Status is Inpatient Admission. Condition is Stable. Problem is new. Symptoms are unchanged. dw
[2020-02-14] MEDS ORDERED: LIDOCAINE VISCOUS 2% SOLN 15 ML UDC ONE (10:18)
--- NOTE | 2020-02-14 11:25 | P.HP ---
Certification for Inpatient Patient admitted to: Inpatient With expected LOS: <2 Midnights Practitioner: I am a practitioner with admitting privileges, knowledge of patient current condition, hospital course, and medical plan of care. Services: Services provided to patient in accordance with Admission requirements found in Title 42 Section 412.3 of the Code of Federal Regulations Patient History Date of Service: 02/14/20 Reason for admission: Abdominal pain History of Present Illness: 80-year-old woman with a history of hypothyroidism presented to the emergency department with a complaint of sudden onset of abdominal pain described as colicky, associated nausea, no diarrhea. CT abdomen and pelvis done in the emergency department demonstrated dilated loops small bowel with no transition point and mutiple segments of bowel narrowing. NG tube was inserted with significant output. Patient has mild leukocytosis, no fever and does not meet criteria for sepsis. She is admitted for further management. Allergies propofol Allergy (Verified 04/26/19 08:41) Anaphylaxis Home Medications: Alendronate Sodium 35 mg PO EVERY 7TH DAY 04/29/19 Carvedilol [Coreg] 3.125 mg PO DAILY 04/29/19 Cholecalciferol (Vitamin D3) [Vitamin D3] 125 mcg PO DAILY 04/29/19 Furosemide [Lasix*] 20 mg PO DAILY 04/29/19 Levothyroxine [Synthroid*] 100 mcg PO [id number] 04/29/19 Losartan Potassium 25 mg PO DAILY 04/29/19 Oxybutynin Chloride [Ditropan*] 5 mg PO BID 04/29/19 - Past Medical/Surgical History Diabetic: No -: Hypothyroidism -: Factor V Laden deficiency -: Hysterectomy -: CS - Family History Family History: Reviewed- Non-Contributory (Multiple children have had thromboembolism secondary to factor 5 laden deficiency) - Family History Sister -: Cancer - Social History Smoking Status: Never smoker Alcohol use: Yes CD- Drugs: No Caffeine use: Yes Review of Systems Other: Except as documented, all other systems reviewed and negative. Physical Examination - Physical Exam General: Alert, In no apparent distress HEENT: PERRLA, Other (NG-tube to suction), EOMI, Sclerae nonicteric Neck: Supple, JVD not distended Respiratory: Clear to auscultation bilaterally, Normal air movement Cardiovascular: No edema, Regular rate/rhythm, Normal S1 S2 Capillary refill: <2 Seconds Gastrointestinal: Hypoactive, Soft and benign, Non-distended, Tenderness (Moderate tenderness) Musculoskeletal: No swelling, No tenderness Integumentary: No rashes, No erythema Neurological: Normal speech, Normal strength at 5/5 x4 extr, Cranial nerves 3-12 intact - Studies Laboratory Data (last 24 hrs) 02/14/20 06:26: WBC 12.4 H, Hgb 14.6, Hct 44.4, Plt Count 300 02/14/20 06:26: Sodium 142, Potassium 4.2, BUN 23 H, Creatinine 1.31 H, Glucose 164 H, Total Bilirubin 0.4, AST 21, ALT 29, Alkaline Phosphatase 110, Lipase 110 Assessment and Plan - Problems (Diagnosis) (1) Partial small bowel obstruction Current Visit: Yes Status: Acute (2) Hypothyroidism Current Visit: No Status: Chronic - Plan I suspect small-bowel dilatation secondary to ileus. Admit to the medical floor. Maintained NG-tube to suction. Empiric antibiotics-IV ciprofloxacin and Flagyl. Supportive measures with IV hydration. Consult general surgeon-Dr. Bull. Serial abdominal examination. Repeat CT abdomen with oral contrast in a.m per radiology recommendation. - Advance Directives Does patient have a Living Will: No Does patient have a Durable POA for Healthcare: Yes
--- NOTE | 2020-02-14 12:11 | RAD REPORT ---
EXAM DESCRIPTION: RAD - Abdomen 1 View (KUB) - 02/14/2020 11:31 am CLINICAL HISTORY: ABD PAIN COMPARISON: Abdomen Pelvis W Contrast dated 02/14/2020 FINDINGS: Diaphragm and upper most abdomen obscured from view. Contrast is present in the system from earlier CT study. No free air or pneumatosis. No change to the bowel pattern from the earlier CT study. No suspicious calcifications. No significant bony findings IMPRESSION: Prominent but nonspecific small bowel pattern consistent with the ileus/ enteritis findi ngs on earlier CT study.
--- NOTE | 2020-02-14 14:24 | RAD REPORT ---
EXAM DESCRIPTION: US - Abdomen Exam Limited - 02/14/2020 2:10 pm CLINICAL HISTORY: ABD PAIN COMPARISON: CT abdomen pelvis February 13 FINDINGS: A 9 millimeter mobile gallstone identified. No other stones or sludge seen. There is no wa ll thickening or pericholecystic fluid. No common duct stone or biliary tree dilatation identified. IMPRESSION: Single 9 millimeter mobile gallstone. No other gallbladder or biliary tree abnormality.
[2020-02-14 14:55] VITALS: BMI 32.5
[2020-02-14] MEDS: D5 0.9 NS 1,000 ML IV SCH (15:16)
[2020-02-14] MEDS: ONDANSETRON 4 MG/2 ML VIAL IV PRN ×2 (15:22→21:46)
[2020-02-14] MEDS: MORPHINE 2 MG/ML SYR IV PRN ×2 (15:22→21:40)
[2020-02-14 15:55] LABS: Urine Appearance CLEAR; Urine Bilirubin NEGATIVE (NEG); Urine Blood NEGATIVE (NEG); Urine Color YELLOW; Urine Glucose NEGATIVE (NEG); Urine Microscopic Reflex NO UMIC; Urine Protein NEGATIVE (NEG); Urine Specific Gravity >=1.030 (1.005-1.030)
[2020-02-14] MEDS: METRONIDAZOLE 500mg IVPB 500 MG/100 ML BAG IV SCH (16:30)
[2020-02-14] MEDS: CIPROFLOXACIN 400mg IV 400 MG/200 ML BAG IV SCH (21:40)
[2020-02-15] MEDS: METRONIDAZOLE 500mg IVPB 500 MG/100 ML BAG IV SCH ×3 (00:38→18:07)
[2020-02-15] MEDS: D5 0.9 NS 1,000 ML IV SCH ×3 (03:28→16:48)
[2020-02-15 05:22] LABS: Absolute Lymphocytes (CBC) 2.3 K/uL (0.7-4.9); Basophils % 0.4 % (0-1.3); Hematocrit 37.1 % (36.0-45.0); Lymphocytes % 31.6 % (15.3-44.8); MPV 9.9 fL (7.6-11.3); RBC Red Blood Cell Count 4.03 M/uL (3.86-4.86)
[2020-02-15 05:49] LABS: Albumin 2.9 g/dL (3.4-5.0); Bilirubin Total 0.4 mg/dL (0.2-1.0); Magnesium 2.2 mg/dL (1.8-2.4); Phosphorus 2.9 mg/dL (2.5-4.9); Potassium 3.6 mmol/L (3.5-5.1); Protein, Total 6.2 g/dL (6.4-8.2); Thyroid Stimulating Hormone 1.65 uIU/mL (0.360-3.740)
[2020-02-15] MEDS: MORPHINE 2 MG/ML SYR IV PRN ×2 (05:55→12:34)
[2020-02-15] MEDS: ONDANSETRON 4 MG/2 ML VIAL IV PRN (05:55)
[2020-02-15] MEDS ORDERED: KCL 20 MEQ/100 mL IVPB 20 MEQ/100 ML BAG IV SCH (07:45)
[2020-02-15] MEDS: ENOXAPARIN 30 MG/0.3 ML SQ SCH (09:02)
--- NOTE | 2020-02-15 11:43 | P.PN ---
Subjective Date of Service: 02/15/20 Chief Complaint: Abdominal pain Patient states she is doing much better today. She denies any abdominal. She stated she has been passing gas. No NG tube output noted this morning. Physical Examination - Vital Signs Temperature: 97.4 F Blood Pressure: 126/58 Pulse: 73 Respirations: 16 Pulse Ox (%): 93 - Physical Exam General: Alert, In no apparent distress, Oriented x3 HEENT: Other (NGT to suction in place) Respiratory: Clear to auscultation bilaterally, Normal air movement Cardiovascular: No edema, Regular rate/rhythm, Normal S1 S2 Gastrointestinal: Hypoactive, Soft and benign, Non-distended, No tenderness, No masses Musculoskeletal: No swelling, No tenderness Integumentary: No rashes Neurological: Normal strength at 5/5 x4 extr Assessment And Plan - Current Problems (Diagnosis) (1) Partial small bowel obstruction Current Visit: Yes Status: Acute (2) Hypothyroidism Current Visit: No Status: Chronic - Plan I suspect small-bowel dilatation secondary to ileus. Case discussed with Dr. Bull. Repeat CT abdomen and pelvis IV and oral contrast. NG-tube to be clamped pending CT abdomen result. Contain antibiotics-IV ciprofloxacin and Flagyl. Supportive measures with IV hydration.
--- NOTE | 2020-02-15 12:18 | RAD REPORT ---
EXAM DESCRIPTION: CT - Abdomen Pelvis W Contrast - 02/15/2020 12:01 pm CLINICAL HISTORY: Abdominal pain. COMPARISON: February 14, 2020 ultrasound and CAT scan TECHNIQUE: Computed axial tomography of the abdomen and pelvis was obtained. 100 cc Isovue-300 is ad ministered intravenously. Oral contrast was given. All CT scans are performed using dose optimization technique as appropriate and may include automated exposure control or mA/KV adjustment according to patient size. FINDINGS: The liver, spleen, pancreas, adrenals and kidneys appear unremarkable. The gallbladder is mildly distended. A gallstone is present. Small bowel caliber is normal. Colonic wall thickness is normal. Nasogastric tube is present within the stomach. Hysterectomy IMPRESSION: Mildly distended gallbladder. Cholelithiasis
--- NOTE | 2020-02-15 12:32 | CON ---
Date of Consultation: 02/14/2020 Reason For Consultation: Possible small bowel obstruction. History Of Present Illness: The patient is an 80-year-old female, presented to the emergency room ye sterday with acute onset of diffuse crampy abdominal pain, started on New 's Kendra associated with nausea and vomiting. No diarrhea. No constipation. Her last bowel movement was a couple of days ag o. She is passing gas this morning. NG tube initially put out quite a bit, but has not since. It w as advice that she get a followup CT with oral contrast, which is being done right now. She denies b lood in her stool, dysuria, hematuria. No sore throat, runny nose, cough, headaches, or dizziness. No chest pain. Review of Systems: Otherwise unremarkable. No fever or chills. Past Medical History: Significant for hypothyroidism, factor 5 Leiden deficiency. Past Surgical History: Hysterectomy and . Allergies: INCLUDE PROPOFOL. Social History: The patient does not smoke. Drinks occasionally. Family History: Significant for cancer in a sister. Physical Examination: Vital Signs: Stable. She is currently afebrile. General: She is awake, alert, and oriented x3. Head and Neck: Cranial nerves 2 through 12 are grossly within normal limits. No neck masses. No JV D. Throat clear. Neck supple. Chest: Clear. Heart: S1 and S2. Abdomen: Soft, nondistended, nontender. Positive bowel sounds. Extremities: Adequately perfused. Nontender. Neuro: Nonfocal. Imaging: CT of the abdomen and pelvis shows multiple dilated loops of jejunum with progressive taper ing to normal diameter of ileum and no transition point or obstructing mass. Prominent ileus or ente ritis is favored over bowel obstruction. No free air or surgical emergent finding. Several areas of circumferential narrowing of the ascending colon are present, believed to be peristalsis effects. I f the patient is to be admitted for the small bowel findings, repeat CT imaging could be performed to re-evaluate the right-sided colon following oral contrast when tolerable by the patient. Otherwise, repeat outpatient's CT imaging with oral contrast could be performed or colonoscopy. She had an abd ominal ultrasound, which showed a single mobile 9 mm gallstone. No other abnormality was seen. She had an abdominal x-ray, which shows prominent but nonspecific small bowel pattern consistent with ile us. Laboratory Data: White count is 7.3 today with no left shift, yesterday was slightly elevated. Chem istry reviewed, essentially unremarkable. Assessment: An ileus versus gastroenteritis. Recommendations: Continue n.p.o., IV fluid, IV antibiotics. Right now we will wait and see what the CAT scan shows and make further recommendation. As patient is passing gas probably can begin her on sips of clear liquids, advance as tolerated, and clamp NG tube. If there is no residual, it can be removed. Plan of care discussed with Dr. Sanford. /EMILY Voice ID: [id number] Report ID: [id number]
[2020-02-15] MEDS: CIPROFLOXACIN 400mg IV 400 MG/200 ML BAG IV SCH (20:42)
[2020-02-16] MEDS: METRONIDAZOLE 500mg IVPB 500 MG/100 ML BAG IV SCH ×3 (00:23→17:52)
[2020-02-16 01:43] VITALS: O2SAT 99
[2020-02-16 04:50] LABS: Potassium 3.8 mmol/L (3.5-5.1)
[2020-02-16] MEDS: D5 0.9 NS 1,000 ML IV SCH ×2 (05:33→20:22)
[2020-02-16] MEDS ORDERED: POTASSIUM 25 MEQ EFFERV TAB PO ONE (09:00)
[2020-02-16] MEDS: ENOXAPARIN 30 MG/0.3 ML SQ SCH (09:36)
--- NOTE | 2020-02-16 11:20 | P.PN ---
Subjective Date of Service: 02/16/20 Chief Complaint: Abdominal pain Patient denies any complain. No NG tube output since it was clamped. Patient was also tolerating liquid diet. Repeat CT abdomen reviewed and shows no bowel dilatation. She stated she has been passing gas. Physical Examination - Vital Signs Temperature: 97.8 F Blood Pressure: 145/63 Pulse: 66 Respirations: 16 Pulse Ox (%): 96 - Physical Exam General: Alert, In no apparent distress HEENT: Other (NGT) Respiratory: Clear to auscultation bilaterally, Normal air movement Cardiovascular: No edema, Regular rate/rhythm, Normal S1 S2 Gastrointestinal: Normal bowel sounds, Soft and benign, Non-distended, No tenderness Musculoskeletal: No swelling, No tenderness Integumentary: No rashes Neurological: Other (No focal deficit.) Assessment And Plan - Current Problems (Diagnosis) (1) Partial small bowel obstruction Current Visit: Yes Status: Acute (2) Hypothyroidism Current Visit: No Status: Chronic (3) Cholelithiasis Current Visit: Yes Status: Acute - Plan Removed NGT per Dr. Bull. Advanced diet to soft consistency. Contain antibiotics-IV ciprofloxacin and Flagyl. Supportive measures with IV hydration. Cholelithiasis noted. Outpatient evaluation for elective cholecystectomy recommended.
--- NOTE | 2020-02-16 11:28 | PN ---
Date of Progress Note: 02/16/2020 Subjective: Patient is awake, alert. Had a bowel movement. No abdominal pain. Bowels are stable. Afebrile. A CT yesterday reviewed. Objective: ABDOMEN: Soft, nondistended, nontender. Assessment: Small bowel obstruction, resolved and cholelithiasis. Recommendations: We will discontinue the NG tube. Advance diet to GI soft. If tolerated, she can b e discharged home and follow up with me, and we can evaluate for an outpatient cholecystectomy. If s he is not better on the diet, and she may need a cholecystectomy while in the hospital. Plan of care discussed with the patient and Dr. Sanford. /MODL Voice ID: [id number] Report ID: [id number]
[2020-02-16] MEDS: CIPROFLOXACIN 400mg IV 400 MG/200 ML BAG IV SCH (20:22)
[2020-02-17] MEDS: METRONIDAZOLE 500mg IVPB 500 MG/100 ML BAG IV SCH (01:05)
--- NOTE | 2020-02-17 09:03 | P.DS ---
Admission Date: 02/14/20 Discharge Date: 02/17/20 Disposition: ROUTINE DISCHARGE Discharge Condition: FAIR Reason for Admission: Abdominal pain - Problems (1) Partial small bowel obstruction Status: Acute (2) Hypothyroidism Status: Chronic (3) Cholelithiasis Status: Acute Brief History of Present Illness: 80-year-old woman with a history of hypothyroidism presented to the emergency department with a complaint of sudden onset of abdominal pain described as colicky, associated nausea, no diarrhea. CT abdomen and pelvis done in the emergency department demonstrated dilated loops small bowel with no transition point and mutiple segments of bowel narrowing. NG tube was inserted with significant output. Patient has mild leukocytosis, no fever and does not meet criteria for sepsis. She is admitted for further management. Hospital Course: Patient admitted to the medical floor. An NG tube to suction was placed. Patient had no significant output from the NG tube after admission. Repeat CT abdomen and pelvis demonstrated resolution of the bowel dilatation. Patient was treated with empiric antibiotics. The NG tube was clamped after that and there was no significant output over a period of 24hrs. Patient was seen in consultation by general surgery-Dr. Bull. NG-tube was removed and his diet advanced to soft consistency which she tolerated. Patient has passed flatus and have had a bowel movement. Bowel obstruction has resolved. Patient is deemed clinically stable for discharge. Vital Signs/Physical Exam: Temp Pulse Resp BP Pulse Ox 97.7 F 60 18 105/51 L 97 02/17/20 08:00 02/17/20 08:00 02/17/20 08:00 02/17/20 08:00 02/17/20 08:00 General: Alert, In no apparent distress, Oriented x3 HEENT: Mucous membr. moist/pink Neck: JVD not distended Respiratory: Clear to auscultation bilaterally, Normal air movement Cardiovascular: No edema, Regular rate/rhythm, Normal S1 S2 Gastrointestinal: Normal bowel sounds, Soft and benign, Non-distended, No tenderness Musculoskeletal: No swelling Integumentary: No rashes Neurological: Normal strength at 5/5 x4 extr Laboratory Data at Discharge: WBC 7.3 K/uL (4.3-10.9) D 02/15/20 05:03 Hgb 12.3 g/dL (12.0-15.0) 02/15/20 05:03 Hct 37.1 % (36.0-45.0) D 02/15/20 05:03 Plt Count 223 K/uL (152-406) D 02/15/20 05:03 Sodium 143 mmol/L (136-145) 02/17/20 05:50 Potassium 4.0 mmol/L (3.5-5.1) 02/17/20 05:50 BUN 14 mg/dL (7-18) 02/17/20 05:50 Creatinine 0.90 mg/dL (0.55-1.3) 02/17/20 05:50 Glucose 131 mg/dL (74-106) H 02/17/20 05:50 Phosphorus 2.9 mg/dL (2.5-4.9) 02/15/20 05:03 Magnesium 2.2 mg/dL (1.8-2.4) 02/15/20 05:03 Total Bilirubin 0.4 mg/dL (0.2-1.0) 02/15/20 05:03 AST 28 U/L (15-37) 02/15/20 05:03 ALT 34 U/L (12-78) 02/15/20 05:03 Alkaline Phosphatase 83 U/L (45-117) 02/15/20 05:03 Lipase 110 U/L (73-393) 02/14/20 06:26 Home Medications: Alendronate Sodium 35 mg PO EVERY 7TH DAY 04/29/19 Carvedilol [Coreg] 3.125 mg PO DAILY 04/29/19 Cholecalciferol (Vitamin D3) [Vitamin D3] 125 mcg PO DAILY 04/29/19 Furosemide [Lasix*] 20 mg PO DAILY 04/29/19 Levothyroxine [Synthroid*] 100 mcg PO [id number] 04/29/19 Losartan Potassium 25 mg PO DAILY 04/29/19 Oxybutynin Chloride [Ditropan*] 5 mg PO BID 04/29/19 Ciprofloxacin HCl [Cipro 500 MG Tablet] 500 mg PO BID #6 tab 02/17/20 Sennosides [Senna] 17.2 mg PO BID #120 tablet 02/17/20 metroNIDAZOLE [Flagyl] 500 mg PO Q8H #9 tablet 02/17/20 New Medications: Ciprofloxacin HCl [Cipro 500 MG Tablet] 500 mg PO BID #6 tab metroNIDAZOLE [Flagyl] 500 mg PO Q8H #9 tablet Sennosides [Senna] 17.2 mg PO BID #120 tablet Diet: AHA Activity: Ad elda Followup: Yesenia Galloway NP [Primary Care Provider] - 1-2 Weeks (Follow up in office in 1-2 weeks. Call to schedule an appointment.) Christiano Bull MD [ACTIVE - CAN ADMIT] - Time spent managing pt's care (in minutes): 40
--- NOTE | 2020-02-17 11:03 | PN ---
Date of Progress Note: 02/17/2020 Subjective: The patient is awake, alert, no complaint, tolerating diet. No abdominal pain. Objective: Vitals: Stable. Afebrile. Abdomen: The patient did have a bowel movement. Abdomen is benign. Assessment: Ileus, gastroenteritis, resolved. Recommendations: The patient is cleared from surgery standpoint for discharge and she was advised th at if she does have biliary colic or postprandial discomfort, she is to follow up with me in the offi ce for an outpatient cholecystectomy. /MODL Voice ID: [id number] Report ID: [id number]
[2020-02-17 12:27] VITALS: BP 116/56; TEMP 97.8
== END 2020-02-17 11:43 | disposition home or self-care (01) | DRG 390 ==
LOC: ER 06:09 → ERHOLD 11:17 → 2ND 13:20
PROVIDERS: ADMIT Internal Medicine; ATTEND Internal Medicine
DX: K56.690 Other partial intestinal obstruction (principal); I10 Essential (primary) hypertension; E03.9 Hypothyroidism, unspecified; K80.20 Calculus of gallbladder without cholecystitis without obstruction; K52.9 Noninfective gastroenteritis and colitis, unspecified; D72.829 Elevated white blood cell count, unspecified; Z90.710 Acquired absence of both cervix and uterus; Z87.891 Personal history of nicotine dependence; Z88.4 Allergy status to anesthetic agent; Z79.890 Hormone replacement therapy; Z79.899 Other long term (current) drug therapy; Z20.822 Contact with and (suspected) exposure to COVID-19
CPT/HCPCS: 36415; 74018; 74177; 76705; 80048; 80053; 80076; 81003; 83690; 83735; 84100; 84443; 85025; 96374; 96375; 99285; J0744; J1650; J2270; J2405; J3010; J3480; J7042; Q9967; U0003

== ENCOUNTER 2020-03-05 07:58 | Day surgery (SDC) | payer OTHER ==
--- NOTE | 2020-03-02 13:44 | RAD REPORT ---
EXAM DESCRIPTION: RAD - Chest Pa And Lat (2 Views) - 03/02/2020 1:29 pm CLINICAL HISTORY: PRE OP, pending Colles COMPARISON: Single-view chest April 2019 TECHNIQUE: Frontal and lateral views of the chest were obtained. FINDINGS: The lungs are clear of failure, mass or infiltrate. Chronic interstitial opacification pr esent similar to comparison. Heart size is normal and central vasculature is within normal limits. N o pleural effusion or pneumothorax seen. No acute bony finding noted. No aortic abnormality. IMPRESSION: Chronic interstitial pattern with no acute cardiopulmonary finding. No significant change from comparison study.
[2020-03-02 14:13] LABS: Absolute Lymphocytes (CBC) 2.5 K/uL (0.7-4.9); Basophils % 1.1 % (0-1.3); Hematocrit 41.2 % (36.0-45.0); Lymphocytes % 35.4 % (15.3-44.8); MPV 10.5 fL (7.6-11.3); RBC Red Blood Cell Count 4.52 M/uL (3.86-4.86)
[2020-03-02 14:26] LABS: Potassium 4.1 mmol/L (3.5-5.1)
--- NOTE | 2020-03-03 17:17 | EKG ---
Test Date: 2020-03-02 Test Time: 13:05:30 Quality Control Specialist: NITHIN MEASUREMENT RESULTS: Intervals: Rate: 59 CA: 178 QRSD: 90 QT: 436 QTc: 431 Stanley: P: 63 CA: 178 QRS: 0 T: 53 INTERPRETIVE STATEMENTS: Sinus bradycardia Otherwise normal ECG Compared to ECG 04/28/2019 16:36:47 Myocardial infarct finding no longer present Electronically Signed On 03-03-20 17:13:11 [employer] by Christopher Mathew
[2020-03-05] MEDS ORDERED: Ringers Lactate 1,000 ML IV ONE (08:38)
[2020-03-05] MEDS ORDERED: CEFOXITIN/SWI 1gm 1 GM/10 ML SYR ONE (08:38)
[2020-03-05] MEDS ORDERED: SCOPOLAMINE HYDROBROMIDE PATCH TD ONE (08:43)
[2020-03-05] MEDS ORDERED: FENTANYL CITR 100 MCG/2 ML ONE ×2 (09:16→10:44)
[2020-03-05] MEDS ORDERED: dexAMETHasone 10 MG/ML VIAL ONE (09:16)
[2020-03-05] MEDS ORDERED: ONDANSETRON 4 MG/2 ML VIAL ONE ×2 (09:17→11:54)
[2020-03-05] MEDS ORDERED: ROCURONIUM 50 MG/5 ML VIAL IV ONE ×2 (09:17→10:47)
[2020-03-05] MEDS ORDERED: ETOMIDATE 20 MG/10 ML VIAL IV ONE ×2 (09:17→10:53)
[2020-03-05] MEDS ORDERED: GLYCOPYRROLATE 0.2 MG/ML SYR ONE (10:17)
[2020-03-05] MEDS ORDERED: NEOSTIGMINE 1 MG/ML -5 ML ONE (10:18)
[2020-03-05] MEDS ORDERED: KETOROLAC 30 MG/ML INJ ONE (10:18)
[2020-03-05] MEDS ORDERED: DIPHENHYDRAMINE 50 MG/ML VIAL ONE (10:32)
[2020-03-05] MEDS ORDERED: HYDROMORPHONE HCL 1 MG/ML INJ ONE ×2 (11:14→12:01)
[2020-03-05] MEDS ORDERED: NS 0.9% VIAL 10 ML ONE (11:16)
[2020-03-05] MEDS ORDERED: Phenylephrine HCl 10 MG/ML 1 ML VIAL ONE (11:24)
[2020-03-05] MEDS: HYDROMORPHONE HCL 1 MG/ML INJ ONE ×2 (11:40→11:45)
[2020-03-05] MEDS: MEPERIDINE HCL 25 MG/ML SYR ONE ×2 (11:47→11:57)
[2020-03-05 12:28] LABS: Hematocrit 38.6 % (36.0-45.0)
[2020-03-05] MEDS: PROMETHAZINE INJ 25 MG/ML AMP ONE ×2 (12:44→12:55)
--- NOTE | 2020-03-05 13:01 | OP ---
Date of Procedure: 03/05/2020 Surgeon: Christiano Bull MD Preoperative Diagnosis: Chronic cholecystitis and cholelithiasis. Postoperative Diagnosis: Chronic cholecystitis and cholelithiasis with bleeding from the epigastric trocar site. Procedure Perfomed: Laparoscopic cholecystectomy and control of epigastric trocar bleeding. Estimated Blood Loss: 50 cc. Specimen: Gallbladder. Finding: As above. Anesthesia: General. Complication: As above. Disposition: The patient tolerated the procedure in stable condition, taken to recovery room, extuba polo in good general condition. Procedure In Detail: The patient was brought to the OR and placed in supine position. General anest hesia was begun. The patient was prepped and draped in the usual sterile fashion. Marcaine 0.5% was infiltrated locally. A 15-blade was used to make a 1 cm supraumbilical midline incision. Subcutane ous tissue was divided. Fascia was identified and divided. #1 Vicryl stay suture was placed. Perit soriano cavity was entered with a sharp and blunt dissection. 12 mm trocar was placed into the peritone al cavity under direct vision. Pneumoperitoneum was established. Three 5 trocars were placed, 1 in the epigastrium region just to the right of midline and 2 in the right subcostal region. Laparoscopy revealed chronic inflammation of the gallbladder. Fundus of the gallbladder retracted superiorly. Infundibulum was identified and retracted inferolaterally. Cystic duct and cystic artery were clearl y identified with blunt dissection. Clips were placed. Both structures were divided. Cautery used to remove the gallbladder from the liver bed. Bleeding on the liver bed was controlled with cautery. Gallbladder was retrieved through the umbilicus via an EndoCatch bag. Right upper quadrant was irr igated. Effluent was clear. No evidence of bleeding or bile leakage appreciated from the site of th e gallbladder; however when we took the trocar out the epigastric site, had some bleeding and oozing of blood that was noted and closed with #1 Vicryl [id number]-zf-lyipt suture was used and complete contro l of the bleeding was established and this was monitored for several minutes and no further bleeding was noted. Subsequently, all trocars were removed under direct vision. Stay sutures were tied to ea ch other to approximate the fascial defect. Subcutaneous were wounds irrigated. Bleeding was contro lled with cautery. A 3-0 chromic was used to approximate subcutaneous tissue and jasmyne used to gisell se skin. Then patient was extubated and was being transferred from the OR table to the stretcher. T chela, she Valsalva'd and had some bleeding from the epigastric trocar site. Pressure was applied to t his area. At this time I want to make sure there was no further bleeding intraperitoneally or undern eath the wounds, so we placed the patient back on the OR table. I intubated the patient and patient was prepped and draped in usual sterile fashion and then the umbilical wound was opened and a 12 troc ar was placed and pneumoperitoneum was established. There was no evidence of bleeding noted intraper itoneally from the trocar sites. The epigastric incision was extended slightly to approximately a 3 cm. Subcutaneus tissue was divided. There was some oozing noted from the skin edges and that was ea sily controlled with cautery. No evidence of any further bleeding was noted. Subsequently, all woun ds were irrigated. Stay sutures were tied to each other to approximate the defect and then 3-0 chrom ic was used to approximate the subcutaneous tissue. Douglas were used to close skin. Sterile dressi ng was applied. Patient was awakened and taken back to recovery room in good general condition with good vital signs and no evidence of any further bleeding. Subsequently this patient will have an H a nd H checked in the recovery room and should be stable. The patient will be discharged home later to day. Disposition: Home. Condition: Stable. Discharge Instructions: Resume home medications and diet. Activity as tolerated. No heavy lifting. Remove outer dressing in 2 days. Shower. Keep wound clean and dry. Follow up in my office in a week. Call for appointment. Tylenol No. 3, 1 tablet p.o. q.4 p.r.n. pain. /MODL Voice ID: [id number] Report ID: [id number]
[2020-03-05 13:49] VITALS: BP 128/51; TEMP 97.3; O2SAT 99
[2020-03-05] MEDS ORDERED: HYDROCODONE/APAP 7.5/325 MG TAB ONE (13:57)
== END 2020-03-05 15:31 | disposition home or self-care (01) ==
LOC: OR 07:58
PROVIDERS: ATTEND Surgery
PROC: 0FT44ZZ Resection of Gallbladder, Percutaneous Endoscopic Approach (ICD-10-PCS; principal; 2020-03-05 09:00)
DX: K80.10 Calculus of gallbladder with chronic cholecystitis without obstruction (principal); Z20.822 Contact with and (suspected) exposure to COVID-19
CPT/HCPCS: 93005; 85025; 80048; 36415 ×2; 88304; 85018; 85014; 71046; 47562; U0002; J2550; J1200; J2370; J3010 ×2; J1100; J2175; J1170 ×2; J2710; J7120; J2405 ×2

== ENCOUNTER 2022-09-16 10:26 | Day surgery (SDC) | payer OTHER ==
--- NOTE | 2022-09-13 15:27 | RAD REPORT ---
EXAM DESCRIPTION: Sonja Rosenbaum And Roberta (2 Views)09/13/2022 3:14 pm CLINICAL HISTORY: Preop for cardiac catheterization COMPARISON: 2020 FINDINGS: The lungs appear clear of acute infiltrate. The heart is normal size IMPRESSION: No acute abnormalities displayed
[2022-09-13 15:42] LABS: Protime INR 0.99
[2022-09-16] MEDS ORDERED: NA CHLORIDE 0.9% 500 ML ONE (10:37)
[2022-09-16] MEDS ORDERED: LIDOCAINE 1% 20 ML MDV ONE (11:40)
[2022-09-16] MEDS ORDERED: HEPA 1000U/500MLS 2,000 UNIT/1,000 ML BAG IV ONE (11:40)
[2022-09-16] MEDS ORDERED: TICAGRELOR 90 MG TABLET PO ONE (11:41)
[2022-09-16] MEDS ORDERED: CLOPIDOGREL 75 MG TABLET ONE (11:41)
[2022-09-16] MEDS ORDERED: MIDAZOLAM HCL 2 MG/2 ML INJ ONE ×2 (11:41→13:16)
[2022-09-16] MEDS ORDERED: FENTANYL CITR 100 MCG/2 ML ONE (11:41)
[2022-09-16] MEDS ORDERED: ATROPINE SULF 1 MG/10 ML SYR IV ONE (11:41)
[2022-09-16] MEDS ORDERED: HEPARIN 10,000 UNIT/10 ML VIAL IV ONE (11:44)
--- NOTE | 2022-09-16 14:02 | OP ---
Date of Procedure: 09/16/2022 Surgeon: LETICIA JESUS Procedure Performed: Selective coronary angiogram. Indication: Chest pain with abnormal stress test. Access: 1.Right radial artery 6-[place] closed with TR band. 2.Right femoral artery 6-[place]ayan closed with 6-[place] Angio-Seal. Complications: None. Bleeding: Less than 20 mL. Anesthesia: Total sedation time was 45 minutes, used fentanyl and Versed. Description Of Procedure: After risks, benefits, alternatives were explained, the patient agreed to procedure and signed informed consent. The patient was brought into the cardiac catheterization [facility], prepped and draped in the usual sterile fashion. Then, I accessed right radial artery using pediatric micropuncture kit and placed a 6-[place] Slender sheath and took 5-[place] 4.0 catheter into the aortic root, engaged the RCA, but could not engage the left main due to the high takeoff an d the tortuosity of the subclavian and tried to change for a EBU3.5 guide; however, no significant ra dial artery spasm, so I had to abort that access and then I obtained right femoral artery access usin g micropuncture kit, ultrasound guidance and fluoroscopy, and placed a 6-[place] Warren sheath, took a 6-[place] JL4 catheter into the aortic root and tried to engage the left main and could not. Then, I took a 6-[place] EBU3.5 guide, engaged the left main, took standard views, and then I removed the g uide and the sheath. A 6-[place] Angio-Seal was used for closure with good hemostasis of the femoral artery and also the radial sheath was removed and TR band was placed with good hemostasis. Findings: 1.Left main; large and normal. 2.LAD is normal. Some luminal irregularities distally. All diagonal branches are normal. 3.Left circumflex; large and normal. 4.RCA; it is large and dominant with mid 40% stenosis. Conclusion: Mild nonobstructive coronary artery disease. Recommendation: Medical management. SR/MODL Voice ID: [id number] Report ID: [id number]
[2022-09-16 14:14] VITALS: O2SAT 100
[2022-09-16 16:09] VITALS: BP 135/63
== END 2022-09-16 15:40 | disposition home or self-care (01) ==
LOC: CCL 10:26
PROVIDERS: ATTEND Internal Medicine
DX: I25.10 Atherosclerotic heart disease of native coronary artery without angina pectoris (principal); I34.0 Nonrheumatic mitral (valve) insufficiency; I35.1 Nonrheumatic aortic (valve) insufficiency; I11.0 Hypertensive heart disease with heart failure; I50.32 Chronic diastolic (congestive) heart failure; I51.7 Cardiomegaly; Z79.899 Other long term (current) drug therapy; Z88.8 Allergy status to other drugs, medicaments and biological substances
CPT/HCPCS: 36415; 85610; 85730; 71046; 93454; 76937; C1893; Q9966; C1760; G0269; J2001; J0461; J2250 ×2; J3010; J7040

== ENCOUNTER 2023-12-21 11:56 | Day surgery (SDC) | payer OTHER ==
[2023-12-20 08:40] LABS: Absolute Basophils 0.1 K/uL (0-0.5); Absolute Eosinophils 0.1 K/uL (0-0.5); Absolute Lymphocytes (CBC) 2.7 K/uL (0.7-4.9); Absolute Monocytes 0.6 K/uL (0.1-1.3); Absolute Neutrophil 3.2 K/uL (1.8-8.0); Basophils % 0.8 % (0-1.3); Eosinophils % 1.7 % (0-4.4); Hematocrit 43.7 % (36.0-45.0); Hemoglobin 14.4 g/dL (12.0-15.0); MCH 31.3 pg (27.0-35.0); MCHC 32.9 g/dL (32.0-36.0); MCV 95.2 fL (80-100); Monocytes % 9.3 % (3.3-12.3); Neutrophils % 48.2 % (41.7-73.7); Platelets 223 thou/uL (152-406); RBC Red Blood Cell Count 4.59 M/uL (3.86-4.86); Red Cell Distribution Width 14.8 % (12.1-15.2)
[2023-12-20 08:55] LABS: Anion Gap 7.2 mEq/L (5.0-15.0); Potassium 4.2 mEq/L (3.5-5.1)
[2023-12-21] MEDS: Ringers Lactate 1,000 ML IV ONE (12:30)
[2023-12-21] MEDS: CEFAZOLIN SODIUM 2 GM/VIAL ONE (13:55)
[2023-12-21] MEDS ORDERED: FENTANYL CITR 100 MCG/2 ML ONE ×2 (15:20→17:01)
[2023-12-21] MEDS ORDERED: ROCURONIUM 50 MG/5 ML VIAL IV ONE (15:20)
[2023-12-21] MEDS ORDERED: ETOMIDATE 20 MG/10 ML VIAL IV ONE (15:20)
[2023-12-21] MEDS ORDERED: MIDAZOLAM HCL 2 MG/2 ML INJ ONE ×2 (15:20→16:01)
[2023-12-21] MEDS ORDERED: SUCCINYLCHOLINE 20 MG/ML (10 ML) IV ONE (15:28)
[2023-12-21] MEDS: LIDOCAINE HCL/EPINEPHRINE 20 ML MDV ONE (16:00)
[2023-12-21] MEDS ORDERED: ONDANSETRON 4 MG/2 ML VIAL ONE (16:29)
[2023-12-21] MEDS ORDERED: dexAMETHasone 4 MG/ML VIAL ONE (16:30)
[2023-12-21 16:54] VITALS: O2SAT 100
[2023-12-21] MEDS ORDERED: KETOROLAC 30 MG/ML INJ ONE (17:01)
--- NOTE | 2023-12-21 17:07 | RAD REPORT ---
EXAM: Fluoroscopy use, Fluoroscopy <1 Hour HISTORY: [facility] MAIN SACRAL MOD COMPARISON: None FINDINGS: A total of 11 images were sent to PACS, during a fluoroscopically guided sacral neuromodula tor placement. No radiologist was involved in protocoling or performance of the study, and no radiologist was present for the duration of the procedure. No interpretation of the saved images will be provided. Total fluoroscopy time: 0.5 minute. IMPRESSION: Documentation of fluoroscopy use as above.
[2023-12-21] MEDS: KETOROLAC 30 MG/ML INJ ONE (17:22)
[2023-12-21] MEDS: FENTANYL CITR 100 MCG/2 ML ONE (17:22)
[2023-12-21 18:21] VITALS: BP 133/63; TEMP 97.9
--- NOTE | 2023-12-25 13:38 | OP ---
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 Preoperative Diagnoses: Urge urinary incontinence and fecal incontinence. Procedures Performed: Stage 1 and 2 InterStim (complete InterStim system implantation with incision and implantation of tined quadripolar lead electrodes into S3 foramen and fluoroscopic guidance for n eedle placement), subcutaneous implantation of sacral nerve neurostimulator and electronic analysis a nd programming. Specimens: No specimens. Complications: No complications. Drains: No drains. Condition: Stable. Estimated Blood Loss: 10 mL. Findings: Right S3 was used and right buttock pocket was created for the neurostimulator. All the 4 leads were responsive to both Cruzito and plantar flexion of the toe. On lead #3, there was the res ponse where S2 was picking up with heel rotation. However, the confirmation of the position of S3 __ so the lead was left in place with no further change in position with the plan to avoid usin g . The patient was programmed on program 3 at 0.6 milliamps. The patient has significant urinary incontinence as well as fecal incontinence. She was evaluated wi th cystoscopy to rule out the bladder tumor. Then, evaluated urodynamics to understand bladder funct ion due to severe overactive bladder and known significant voiding dysfunction was noticed. The darrell ent had been on oxybutynin for 10 years without any significant improvement. However, when she did s top, she feels like her bladder is worse. She was only trialed with mirabegron, which she developed a rash for which she had to stop the trial, although there was moderate improvement in the urge urinary incontinence. The patient could not take the medication. She is not a good candidate for Botox and she had recurrent UTIs and so discussed about sacral neuromodulation that will also hel p with fecal incontinence, which makes also the risk of urinary tract infection high to be treated wi th . She then underwent office percutaneous nerve evaluation where she had significant imp rovement in symptoms with bilateral significantly frequency, urgency, or urge urinary inco ntinence. So, patient was consented for a port placement and understanding all the benefits and risk s of the procedure and alternatives including observation and medical therapy. Description Of Procedure: The patient was re-consented in the preoperative area and taken back to th e OR and she was intubated on her bed and then moved over to a prone position by OR protocol after be ing properly identified and time-out was done. Then, pillows were placed under her lower abdomen to flatten her sacrum and under her shins to allow the toes to dangle freely. She was now paralyzed. S he was prepped with Betadine and draped in usual sterile fashion. The C-arm was then draped and move d into AP position for fluoroscopic mapping of the sacral region including marking outline of the sac rum, SI joint, sciatic notches, medial foraminal borders, and sacral foramina. She was then turned i nto the lateral position to image the area from the sacral promontory to the coccyx. Surface mapping was done 9 cm above the coccyx and edmondson made at each centimeter above this and 2 cm lateral to this wound. The skin was injected with the local anesthetic 10 mL on each side. A foramen needle was then introd uced into the S3 foramen starting at 11 cm from the coccyx and 2 cm lateral. The depth of the needle was adjusted in the angle as well. The tip of the needle was at the anterior edge of the sacrum. O nce this was confirmed fluoroscopically, needle position was confirmed by identification of Cruzito a nd plantar flexion of the great toe using external test stimulator. The foramen needle stylet was then removed and a bidirectional guide the placed and confirmed fluoros copically. The foramen needle was then removed. The incision was made peripheral to the bidirection al guide through the fascial layer using an 11 blade. Lead introducer sheath with dilator was placed over the directional guide and directed into the foramen to ensure the radiopaque marker of the lead introducer did not extend beyond the anterior edge of the sacrum. The dilator was unlocked and benji dianelys along with the bidirectional guide. The lead was then placed through the introducer sheath to e first white line. Position was checked fluoroscopically. The lead was then further introduced unt il 3 electrodes were visible below the sacrum and each electrode was tested for Cruzito and plantar f lexion of the great toe. Only lead #3 had a response of heel rotation, which was clearly however, the imaging could not really in the AP position clear that this could be just a collateral p ickup and that I will correctly position since I realized this and after adjusting the josé miguel ds the response did not change and so left the electrode in place. After satisfactory positioning, the introducer sheath was retracted under continuous fluoro deploying the lead tines into the parasacral tissue. Further incision was made into subcutaneous tissue, posterior to the iliac crest, and lateral to the sacrum. Blunt dissection was continued until the gluteal fascia was identified. Hemostasis was achi eved allowing for sufficient pocket for the neurostimulator. A tunneling tool with a straw was place d in the lead exit site, subcutaneously to the incised pocket site on the right side. The tunneling tool was then removed and the lead was fed through the straw, pulled out of the pocket site and the l ead was cleansed off bodily fluids and dried. The lead was then inserted into the InterStim 2 neuros timulator and the metal bands were aligned with the blue lead tip clearly visible in the distal porti on of the stimulator header. A single set screw was then tightened with a hex wrench. The neurostimulator was placed into the subcutaneous pocket with the etched side upwards and excessiv mele wrapped counter-clockwise around the neurostimulator. The programming head was placed over the i mplanted neurostimulator in a sterile cover to ensure adequate lead connection and the parameters wer e within normal limits. Impedances were confirmed to be within normal limits. The wounds were irrigated with antibiotic solution and water and closed with 3-0 Vicryl subcutaneous suture and 4-0 Monocryl subcuticular suture both at the pocket site as well as the lead site. Counts were correct. Steri-Strips and gauze were placed. EBL was 10 mL. The patient was transferred to [facility] recovery room in satisfactory condition and using the clinician research programmer, the generator was programmed . She will foll ow up in 3 weeks with me. PADMINI/EMILY Voice ID: [id number] Report ID: [id number]
== END 2023-12-21 19:00 | disposition home or self-care (01) ==
LOC: OR 11:56
PROVIDERS: ATTEND Obstetrics & Gynecology
PROC: 01HY3MZ Insertion of Neurostimulator Lead into Peripheral Nerve, Percutaneous Approach (ICD-10-PCS; principal; 2023-12-21 13:30)
PROC: 0JH73BZ Insertion of Single Array Stimulator Generator into Back Subcutaneous Tissue and Fascia, Percutaneous Approach (ICD-10-PCS; 2023-12-21 13:30)
DX: N39.41 Urge incontinence (principal); R19.5 Other fecal abnormalities; Z87.440 Personal history of urinary (tract) infections
CPT/HCPCS: 64561; 64590; 85025; 80048; 36415; J1100; J2250; J3010 ×2; J2405; J7120; C1778; C1767; 76000

== ENCOUNTER 2024-01-31 07:50 | Inpatient (IN) | payer OTHER ==
--- OUTSIDE RECORDS SUMMARY | 2024-01-31 07:58 | XMS REPORT | Continuity of Care Document ---
Author Name Unknown Address [address] [facility] [place]. 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 Problem Active 08-01 00:00: 00 [facility] Atrophic vaginitis Atrophic Vaginitis Problem Active 08-01 00:00: 00 [facility] Incontinen ce of feces Incontinen ce of Feces Problem Active 08-01 00:00: 00 [facility] Loose stool Loose Stool Problem Active 08-01 00:00: 00 [facility] [id number] Functional diarrhea Problem [facility] [id number] Dysuria Problem [facility] SI - Stress incontinen ce Stress incontinen ce of urine Problem [facility] [id number] Macular degenerati on (senile) of retina Problem Common [facility] [id number] Hypothyroi dism, unspecifie d type Problem [facility] [id number] Stage 2 chronic kidney disease Problem [facility] Right hip pain Pain, joint, hip, right Problem [facility] [id number] Trochanter ic bursitis of right hip Problem [facility] [id number] Idiopathic hypotensio n Problem [facility] Chronic systolic heart failure Chronic systolic congestive heart failure Problem [facility] [id number] Vitamin D deficiency Problem [facility] [id number] PAD (periphera l artery disease) Problem [facility] [id number] Pure hyperchole sterolemia Problem [facility] [id number] Skin lesions Problem [facility] [id number] Other seasonal allergic rhinitis Problem [facility] [id number] Primary insomnia Problem [facility] [id number] Encounter for removal of sutures Problem [facility] [id number] Factor 5 Leiden mutation, heterozygo us Problem [facility] [id number] Osteopenia of lumbar spine Problem [facility] [id number] Acute cystitis without hematuria Problem [facility] [id number] Chronic diastolic congestive heart failure Problem [facility] Allergies, Adverse Reactions, Alerts Allergy Name Allergy Type Status Severity Reaction(s) Onset Date Inactive Date Treating Clinician Comments Source Myrbetri q Allergy to substanc e Active Hives [facility] Propofol Allergy to substanc e Active Severe Other [facility] 4699 Drug allergy Active facial swelling [facility] sacubitr il / valsarta n sacubitr il / valsarta n Active vomiting [facility] Social History Social Habit Start Date Stop Date Quantity Comments Source History of Tobacco Use [facility] Sex Assigned At [facility] Smoking Status Start Date Stop Date Source Former Smoker [facility] Never Smoker [facility] Medications Ordered Medication Name Filled Medication Name Start Date Stop Date Current Medication? Ordering Clinician Indication Dosage Frequency Signature (SIG) Comments Components Source levoFLOXaci n 500 MG levoFLOXaci n 500 MG 2023-02 00:00: 00 No 1{table t} QD levoFLOXac in 500 MG bumetanide 1 mg tablet Take 1 tablet every day by oral route. bumetanide 1 mg tablet Take 1 tablet every day by oral route. 2023-02 0 00:00: 00 No 1 Q1D bumetanide 1 mg tablet Take 1 tablet every day by oral route. [facility] Lidocaine Lidocaine 07-20 00:00: 00 No 5mL [facility] Kenalog (Triamcinol one) Kenalog (Triamcinol one) 07-20 00:00: 00 No 2mL [facility] Fluticasone Propionate 50 MCG/ACT Fluticasone Propionate 50 MCG/ACT 05 00:00: 00 No 1{spray _in_eac h_nostr il} QD Fluticason e Propionate 50 MCG/ACT D3 Adult 1000 UNIT D3 Adult 1000 UNIT No 1{table t} QD D3 Adult 1000 UNIT Levothyroxi ne Sodium 125 MCG Levothyroxi ne Sodium 125 MCG No QD Levothyrox ine Sodium 125 MCG Carvedilol 6.25 MG Carvedilol 6.25 MG No Carvedilol 6.25 MG oxyBUTYnin Chloride 5 MG oxyBUTYnin Chloride 5 MG No 1{table t} BID oxyBUTYnin Chloride 5 MG Bumetanide 1 MG Bumetanide 1 MG No 1{table t} QD Bumetanide 1 MG carvedilol 3.125 mg tablet Take 1 tablet twice a day by oral route. carvedilol 3.125 mg tablet Take 1 tablet twice a day by oral route. No 1 BID carvedilol 3.125 mg tablet Take 1 tablet twice a day by oral route. [facility] estradiol 0.01% (0.1 mg/gram) vaginal cream Insert 0.5 g 3 times a week by vaginal route for 90 days. estradiol 0.01% (0.1 mg/gram) vaginal cream Insert 0.5 g 3 times a week by vaginal route for 90 days. No .5g Q56H estradiol 0.01% (0.1 mg/gram) vaginal cream Insert 0.5 g 3 times a week by vaginal route for 90 days. [facility] levothyroxi ne levothyroxi ne No levothyrox ine [facility] Vitamin D Vitamin D No Vitamin D [facility] Alendronate Sodium 35 MG Alendronate Sodium 35 MG 11-14 00:00 :00 No Alendronat e Sodium 35 MG Immunizations Ordered Immunization Name Filled Immunization Name Date Status Comments Source Pneumovax (PPSV23) Pneumovax (PPSV23) 2020-11-19 13:45:00 Completed [facility] FLUZONE HIGH DOSE OVER 65 FLUZONE HIGH DOSE OVER 65 2020-11-19 13:45:00 Completed [facility] Pneumovax (PPSV23) Pneumovax (PPSV23) 2020-11-19 13:45:00 Completed [facility] FLUZONE HIGH DOSE OVER 65 FLUZONE HIGH DOSE OVER 65 2020-11-19 13:45:00 Completed [facility] Pneumovax (PPSV23) Pneumovax (PPSV23) 2020-11-19 13:45:00 Completed [facility] FLUZONE HIGH DOSE OVER 65 FLUZONE HIGH DOSE OVER 65 2020-11-19 13:45:00 Completed [facility] Pneumovax (PPSV23) Pneumovax (PPSV23) 2020-11-19 13:45:00 Completed [facility] FLUZONE HIGH DOSE OVER 65 FLUZONE HIGH DOSE OVER 65 2020-11-19 13:45:00 Completed [facility] Moderna COVID-19 Vaccine Moderna COVID-19 Vaccine 2020-03-24 14:08:00 Completed [facility] Moderna COVID-19 Vaccine Moderna COVID-19 Vaccine 2020-03-24 14:08:00 Completed [facility] Moderna COVID-19 Vaccine Moderna COVID-19 Vaccine 2020-03-24 14:08:00 Completed [facility] Moderna COVID-19 Vaccine Moderna COVID-19 Vaccine 2020-03-24 14:08:00 Completed [facility] Moderna COVID-19 Vaccine Moderna COVID-19 Vaccine 2020-02-26 14:08:00 Completed [facility] Moderna COVID-19 Vaccine Moderna COVID-19 Vaccine 2020-02-26 14:08:00 Completed [facility] Moderna COVID-19 Vaccine Moderna COVID-19 Vaccine 2020-02-26 14:08:00 Completed [facility] Moderna COVID-19 Vaccine Moderna COVID-19 Vaccine 2020-02-26 14:08:00 Completed [facility] FluAD Quad SD FluAD Quad SD Unknown Completed [facility] Moderna COVID-19 Vaccine Moderna COVID-19 Vaccine Unknown Completed [facility] Pneumovax (PPSV23) Pneumovax (PPSV23) Unknown Completed [facility] FLUZONE HIGH DOSE OVER 65 FLUZONE HIGH DOSE OVER 65 Unknown Completed [facility] FluAD Quad SD FluAD Quad SD Unknown Completed [facility] Moderna COVID-19 Vaccine Moderna COVID-19 Vaccine Unknown Completed [facility] Pneumovax (PPSV23) Pneumovax (PPSV23) Unknown Completed [facility] FLUZONE HIGH DOSE OVER 65 FLUZONE HIGH DOSE OVER 65 Unknown Completed [facility] FluAD Quad SD FluAD Quad SD Unknown Completed [facility] Moderna COVID-19 Vaccine Moderna COVID-19 Vaccine Unknown Completed [facility] Pneumovax (PPSV23) Pneumovax (PPSV23) Unknown Completed [facility] FLUZONE HIGH DOSE OVER 65 FLUZONE HIGH DOSE OVER 65 Unknown Completed [facility] FluAD Quad SD FluAD Quad SD Unknown Completed [facility] Moderna COVID-19 Vaccine Moderna COVID-19 Vaccine Unknown Completed [facility] Pneumovax (PPSV23) Pneumovax (PPSV23) Unknown Completed [facility] FLUZONE HIGH DOSE OVER 65 FLUZONE HIGH DOSE OVER 65 Unknown Completed [facility] FluAD Quad SD FluAD Quad SD Unknown Completed [facility] Moderna COVID-19 Vaccine Moderna COVID-19 Vaccine Unknown Completed [facility] Pneumovax (PPSV23) Pneumovax (PPSV23) Unknown Completed [facility] FLUZONE HIGH DOSE OVER 65 FLUZONE HIGH DOSE OVER 65 Unknown Completed [facility] Fluad (aIIV4) - SDS - 0.5mL Fluad (aIIV4) - SDS - 0.5mL Unknown Completed [facility] Moderna COVID-19 Vaccine Moderna COVID-19 Vaccine Unknown Completed [facility] Pneumovax (PPSV23) Pneumovax (PPSV23) Unknown Completed [facility] FLUZONE HIGH DOSE OVER 65 FLUZONE HIGH DOSE OVER 65 Unknown Completed [facility] Fluad (aIIV4) - SDS - 0.5mL Fluad (aIIV4) - SDS - 0.5mL Unknown Completed [facility] Moderna COVID-19 Vaccine Moderna COVID-19 Vaccine Unknown Completed [facility] Pneumovax (PPSV23) Pneumovax (PPSV23) Unknown Completed [facility] FLUZONE HIGH DOSE OVER 65 FLUZONE HIGH DOSE OVER 65 Unknown Completed [facility] Fluad (aIIV4) - SDS - 0.5mL Fluad (aIIV4) - SDS - 0.5mL Unknown [facility] Moderna COVID-19 Vaccine Unknown Completed [facility] Pneumovax (PPSV23) Pneumovax (PPSV23) Unknown Completed [facility] FLUZONE HIGH DOSE OVER 65 FLUZONE HIGH DOSE OVER 65 Unknown Completed [facility] Fluad (aIIV4) - SDS - 0.5mL Fluad (aIIV4) - SDS - 0.5mL Unknown Completed [facility] Moderna COVID-19 Vaccine Moderna COVID-19 Vaccine Unknown Completed [facility] Pneumovax (PPSV23) Pneumovax (PPSV23) Unknown Completed [facility] FLUZONE HIGH DOSE OVER 65 FLUZONE HIGH DOSE OVER 65 Unknown Completed [facility] Fluad (aIIV4) - SDS - 0.5mL Fluad (aIIV4) - SDS - 0.5mL Unknown Completed [facility] Moderna COVID-19 Vaccine Moderna COVID-19 Vaccine Unknown Completed [facility] Pneumovax (PPSV23) Pneumovax (PPSV23) Unknown Completed [facility] FLUZONE HIGH DOSE OVER 65 FLUZONE HIGH DOSE OVER 65 Unknown Completed [facility] Fluad (aIIV4) - SDS - 0.5mL Fluad (aIIV4) - SDS - 0.5mL Unknown Completed [facility] Moderna COVID-19 Vaccine Moderna COVID-19 Vaccine Unknown Completed [facility] Pneumovax (PPSV23) Pneumovax (PPSV23) Unknown Completed [facility] FLUZONE HIGH DOSE OVER 65 FLUZONE HIGH DOSE OVER 65 Unknown Completed [facility] Fluad (aIIV4) - SDS - 0.5mL Fluad (aIIV4) - SDS - 0.5mL Unknown Completed [facility] Moderna COVID-19 Vaccine Moderna COVID-19 Vaccine Unknown Completed [facility] Pneumovax (PPSV23) Pneumovax (PPSV23) Unknown Completed [facility] FLUZONE HIGH DOSE OVER 65 FLUZONE HIGH DOSE OVER 65 Unknown Completed [facility] Fluad (aIIV4) - SDS - 0.5mL Fluad (aIIV4) - SDS - 0.5mL Unknown Completed [facility] Moderna COVID-19 Vaccine Moderna COVID-19 Vaccine Unknown Completed [facility] Pneumovax (PPSV23) Pneumovax (PPSV23) Unknown Completed [facility] FLUZONE HIGH DOSE OVER 65 FLUZONE HIGH DOSE OVER 65 Unknown Completed [facility] Fluad (aIIV4) - SDS - 0.5mL Fluad (aIIV4) - SDS - 0.5mL Unknown Completed [facility] Moderna COVID-19 Vaccine Moderna COVID-19 Vaccine Unknown Completed [facility] Pneumovax (PPSV23) Pneumovax (PPSV23) Unknown Completed [facility] FLUZONE HIGH DOSE OVER 65 FLUZONE HIGH DOSE OVER 65 Unknown Completed [facility] Fluad (aIIV4) - SDS - 0.5mL Fluad (aIIV4) - SDS - 0.5mL Unknown Completed [facility] Moderna COVID-19 Vaccine Moderna COVID-19 Vaccine Unknown Completed [facility] Pneumovax (PPSV23) Pneumovax (PPSV23) Unknown Completed [facility] FLUZONE HIGH DOSE OVER 65 FLUZONE HIGH DOSE OVER 65 Unknown Completed [facility] Fluad (aIIV4) - SDS - 0.5mL Fluad (aIIV4) - SDS - 0.5mL Unknown Completed [facility] Moderna COVID-19 Vaccine Moderna COVID-19 Vaccine Unknown Completed [facility] Pneumovax (PPSV23) Pneumovax (PPSV23) Unknown Completed [facility] FLUZONE HIGH DOSE OVER 65 FLUZONE HIGH DOSE OVER 65 Unknown Completed [facility] Fluad (aIIV4) - SDS - 0.5mL Fluad (aIIV4) - SDS - 0.5mL Unknown Completed [facility] Moderna COVID-19 Vaccine Moderna COVID-19 Vaccine Unknown Completed [facility] Pneumovax (PPSV23) Pneumovax (PPSV23) Unknown Completed [facility] FLUZONE HIGH DOSE OVER 65 FLUZONE HIGH DOSE OVER 65 Unknown Completed [facility] Fluad (aIIV4) - SDS - 0.5mL Fluad (aIIV4) - SDS - 0.5mL Unknown Completed [facility] Moderna COVID-19 Vaccine Moderna COVID-19 Vaccine Unknown Completed [facility] Pneumovax (PPSV23) Pneumovax (PPSV23) Unknown Completed [facility] FLUZONE HIGH DOSE OVER 65 FLUZONE HIGH DOSE OVER 65 Unknown Completed [facility] Fluad (aIIV4) - SDS - 0.5mL Fluad (aIIV4) - SDS - 0.5mL Unknown Completed [facility] Moderna COVID-19 Vaccine Moderna COVID-19 Vaccine Unknown Completed [facility] Pneumovax (PPSV23) Pneumovax (PPSV23) Unknown Completed [facility] FLUZONE HIGH DOSE OVER 65 FLUZONE HIGH DOSE OVER 65 Unknown Completed [facility] Fluad (aIIV4) - SDS - 0.5mL Fluad (aIIV4) - SDS - 0.5mL Unknown Completed [facility] Moderna COVID-19 Vaccine Moderna COVID-19 Vaccine Unknown Completed [facility] Pneumovax (PPSV23) Pneumovax (PPSV23) Unknown Completed [facility] FLUZONE HIGH DOSE OVER 65 FLUZONE HIGH DOSE OVER 65 Unknown Completed [facility] Fluad (aIIV4) - SDS - 0.5mL Fluad (aIIV4) - SDS - 0.5mL Unknown Completed [facility] Moderna COVID-19 Vaccine Moderna COVID-19 Vaccine Unknown Completed [facility] Pneumovax (PPSV23) Pneumovax (PPSV23) Unknown Completed [facility] FLUZONE HIGH DOSE OVER 65 FLUZONE HIGH DOSE OVER 65 Unknown Completed [facility] Fluad (aIIV4) - SDS - 0.5mL Fluad (aIIV4) - SDS - 0.5mL Unknown Completed [facility] Moderna COVID-19 Vaccine Moderna COVID-19 Vaccine Unknown Completed [facility] Pneumovax (PPSV23) Pneumovax (PPSV23) Unknown Completed [facility] FLUZONE HIGH DOSE OVER 65 FLUZONE HIGH DOSE OVER 65 Unknown Completed [facility] Vital Signs Vital Name Observation Time Observation Value Comments S ource Height 2024-01-10 00:00:00 63 [in_i] [facility] Body Weight 2024-01-10 00:00:00 202.6 [lb_av] [facility] BP Systolic 2024-01-10 00:00:00 117 mm[Hg] [facility] BP Diastolic 2024-01-10 00:00:00 79 mm[Hg] [facility] BMI (Body Mass Index) 2024-01-10 00:00:00 35.9 kg/m2 [facility] height 2023-12-20 15:00:00 63 [in_i] Commo n [facility] weight 2023-12-20 15:00:00 200.8 [lb_av] Co mmon [facility] temperature 2023-12-20 15:00:00 97.8 [degF] Com mon [facility] bmi 2023-12-20 15:00:00 35.57 kg/m2 Comm on [facility] oximetry 2023-12-20 15:00:00 97 % Commo n [facility] respiratory rate 2023-12-20 15:00:00 16 /min [facility] blood pressure systolic 2023-12-20 15:00:00 131 mm[Hg] Common [facility] blood pressure diastolic 2023-12-20 15:00:00 60 mm[Hg] Common [facility] BP Diastolic 2023-12-07 00:00:00 75 mm[Hg] [facility] BMI (Body Mass Index) 2023-12-07 00:00:00 34.5 kg/m2 [facility] Body Weight 2023-12-07 00:00:00 195 [lb_av] [facility] Height 2023-12-07 00:00:00 63 [in_i] [facility] BP Systolic 2023-12-07 00:00:00 147 mm[Hg] [facility] Body Weight 2023-11-17 00:00:00 195 [lb_av] [facility] Height 2023-11-17 00:00:00 63 [in_i] [facility] BP Diastolic 2023-11-17 00:00:00 67 mm[Hg] [facility] BP Systolic 2023-11-17 00:00:00 114 mm[Hg] [facility] BMI (Body Mass Index) 2023-11-17 00:00:00 34.5 kg/m2 [facility] BP Systolic 2023-11-10 00:00:00 140 mm[Hg] [facility] BMI (Body Mass Index) 2023-11-10 00:00:00 34.5 kg/m2 [facility] Height 2023-11-10 00:00:00 63 [in_i] [facility] Body Weight 2023-11-10 00:00:00 195 [lb_av] [facility] BP Diastolic 2023-11-10 00:00:00 69 mm[Hg] [facility] height 2023-10-24 10:20:00 63 [in_i] Commo n [facility] weight 2023-10-24 10:20:00 195.4 [lb_av] Co mmon [facility] temperature 2023-10-24 10:20:00 97.3 [degF] Com mon [facility] bmi 2023-10-24 10:20:00 34.61 kg/m2 Comm on [facility] oximetry 2023-10-24 10:20:00 98 % Commo n [facility] respiratory rate 2023-10-24 10:20:00 16 /min Common [facility] blood pressure systolic 2023-10-24 10:20:00 135 mm[Hg] Common [facility] blood pressure diastolic 2023-10-24 10:20:00 60 mm[Hg] Common [facility] Body Weight 2023-10-11 00:00:00 195 [lb_av] [facility] BP Diastolic 2023-10-11 00:00:00 70 mm[Hg] [facility] BP Systolic 2023-10-11 00:00:00 105 mm[Hg] [facility] BMI (Body Mass Index) 2023-10-11 00:00:00 34.5 kg/m2 [facility] Height 2023-10-11 00:00:00 63 [in_i] [facility] Height 2023-09-19 00:00:00 63 [in_i] [facility] BP Diastolic 2023-09-19 00:00:00 65 mm[Hg] [facility] Body Weight 2023-09-19 00:00:00 195 [lb_av] [facility] BP Systolic 2023-09-19 00:00:00 114 mm[Hg] [facility] BMI (Body Mass Index) 2023-09-19 00:00:00 34.5 kg/m2 [facility] BMI (Body Mass Index) 2023-09-05 00:00:00 34.5 kg/m2 [facility] BP Systolic 2023-09-05 00:00:00 134 mm[Hg] [facility] BP Diastolic 2023-09-05 00:00:00 66 mm[Hg] [facility] Body Weight 2023-09-05 00:00:00 195 [lb_av] [facility] Height 2023-09-05 00:00:00 63 [in_i] [facility] BP Diastolic 2023-08-02 00:00:00 91 mm[Hg] [facility] BP Systolic 2023-08-02 00:00:00 105 mm[Hg] [facility] Body Weight 2023-08-02 00:00:00 195.4 [lb_av] [facility] Height 2023-08-02 00:00:00 63 [in_i] [facility] BMI (Body Mass Index) 2023-08-02 00:00:00 34.6 kg/m2 [facility] height 2023-07-20 10:20:00 63 [in_i] Commo n [facility] weight 2023-07-20 10:20:00 195.2 [lb_av] Co [facility] temperature 2023-07-20 10:20:00 97.4 [degF] Com [facility] bmi 2023-07-20 10:20:00 34.57 kg/m2 Comm on [facility] oximetry 2023-07-20 10:20:00 97 % Commo n [facility] respiratory rate 2023-07-20 10:20:00 16 /min Common [facility] blood pressure systolic 2023-07-20 10:20:00 132 mm[facility]Hg[facility] blood pressure diastolic 2023-07-20 10:20:00 76 mm[Hg] Common [facility] height 2023-07-05 15:40:00 63 [in_i] Commo n [facility] weight 2023-07-05 15:40:00 195.2 [lb_av] Co [facility] temperature 2023-07-05 15:40:00 97.3 [degF] Com [facility] bmi 2023-07-05 15:40:00 34.57 kg/m2 Comm on [facility] oximetry 2023-07-05 15:40:00 95 % Commo n [facility] respiratory rate 2023-07-05 15:40:00 16 /min Common [facility] blood pressure systolic 2023-07-05 15:40:00 133 mm[Hg] Common [facility] blood pressure diastolic 2023-07-05 15:40:00 55 mm[Hg] [facility] height 2023-05-08 10:40:00 63 [in_i] Commo n [facility] weight 2023-05-08 10:40:00 195.4 [lb_av] Co mmon [facility] temperature 2023-05-08 10:40:00 98.6 [degF] Com [facility] bmi 2023-05-08 10:40:00 34.61 kg/m2 Comm on [facility] oximetry 2023-05-08 10:40:00 99 % Commo n [facility] respiratory rate 2023-05-08 10:40:00 16 /min Common [facility] blood pressure systolic 2023-05-08 10:40:00 122 mm[Hg] Common [facility] blood pressure diastolic 2023-05-08 10:40:00 76 mm[Hg] Common [facility] height 2023-04-17 11:00:00 63 [in_i] Commo n [facility] weight 2023-04-17 11:00:00 196.6 [lb_av] Co mmon [facility] temperature 2023-04-17 11:00:00 96.4 [degF] Com [facility] bmi 2023-04-17 11:00:00 34.82 kg/m2 Comm on [facility] oximetry 2023-04-17 11:00:00 98 % Commo n [facility] respiratory rate 2023-04-17 11:00:00 15 /min Common [facility] blood pressure systolic 2023-04-17 11:00:00 127 mm[Hg] Common [facility] blood pressure diastolic 2023-04-17 11:00:00 66 mm[Hg] [facility] height 2023-04-17 11:00:00 63 [in_i] Commo n [facility] weight 2023-04-17 11:00:00 196.6 [lb_av] Co mmon [facility] temperature 2023-04-17 11:00:00 96.4 [degF] Com [facility] bmi 2023-04-17 11:00:00 34.82 kg/m2 Comm on [facility] oximetry 2023-04-17 11:00:00 98 % Commo n [facility] respiratory rate 2023-04-17 11:00:00 15 /min [facility] blood pressure systolic 2023-04-17 11:00:00 127 mm[Hg] Common [facility] blood pressure diastolic 2023-04-17 11:00:00 66 mm[facility]Hg] [facility] height 2022-12-26 09:00:00 63 [in_i] Commo n [facility] weight 2022-12-26 09:00:00 193.8 [lb_av] Co [facility] temperature 2022-12-26 09:00:00 98.6 [degF] Com [facility] bmi 2022-12-26 09:00:00 34.33 kg/m2 Comm on [facility] oximetry 2022-12-26 09:00:00 97 % Commo n [facility] respiratory rate 2022-12-26 09:00:00 16 /min [facility] blood pressure systolic 2022-12-26 09:00:00 132 mm[Hg] [facility] blood pressure diastolic 2022-12-26 09:00:00 68 mm[Hg] [facility] height 2022-12-07 13:00:00 63 [in_i] Commo n [facility] weight 2022-12-07 13:00:00 192.2 [lb_av] Co [facility] temperature 2022-12-07 13:00:00 97.2 [degF] Com [facility] bmi 2022-12-07 13:00:00 34.04 kg/m2 Comm on [facility] oximetry 2022-12-07 13:00:00 95 % Commo n [facility] respiratory rate 2022-12-07 13:00:00 16 /min Common [facility] blood pressure systolic 2022-12-07 13:00:00 138 mm[Hg] [facility] blood pressure diastolic 2022-12-07 13:00:00 72 mm[Hg] [facility] height 2022-12-07 13:00:00 63 [in_i] Commo n [facility] weight 2022-12-07 13:00:00 192.2 [lb_av] Co mmon [facility] temperature 2022-12-07 13:00:00 97.2 [degF] Com [facility] bmi 2022-12-07 13:00:00 34.04 kg/m2 Comm on [facility] oximetry 2022-12-07 13:00:00 95 % Commo n [facility] respiratory rate 2022-12-07 13:00:00 16 /min [facility] blood pressure systolic 2022-12-07 13:00:00 138 mm[Hg] [facility] blood pressure diastolic 2022-12-07 13:00:00 72 mm[Hg] Common [facility] height 2022-07-20 10:00:00 63 [in_i] Commo n [facility] weight 2022-07-20 10:00:00 198 [lb_av] Comm on [facility] temperature 2022-07-20 10:00:00 97.2 [degF] Com [facility] bmi 2022-07-20 10:00:00 35.07 kg/m2 Comm on [facility] blood pressure systolic 2022-07-20 10:00:00 122 mm[Hg] [facility] blood pressure diastolic 2022-07-20 10:00:00 70 mm[Hg] [facility] height 2022-06-10 08:00:00 63 [in_i] Commo n [facility] weight 2022-06-10 08:00:00 197.8 [lb_av] Co on [facility] temperature 2022-06-10 08:00:00 96.8 [degF] Com [facility] bmi 2022-06-10 08:00:00 35.03 kg/m2 Comm on [facility] oximetry 2022-06-10 08:00:00 95 % Commo n [facility] respiratory rate 2022-06-10 08:00:00 15 /min Common [facility] blood pressure systolic 2022-06-10 08:00:00 127 mm[Hg] Common [facility] blood pressure diastolic 2022-06-10 08:00:00 53 mm[Hg] Common [facility] height 2021-12-08 13:20:00 63 [in_i] Commo n [facility] weight 2021-12-08 13:20:00 184.2 [lb_av] Co on [facility] temperature 2021-12-08 13:20:00 98.8 [degF] Com [facility] bmi 2021-12-08 13:20:00 32.63 kg/m2 Comm on [facility] oximetry 2021-12-08 13:20:00 98 % Commo n [facility] respiratory rate 2021-12-08 13:20:00 17 /min Common [facility] blood pressure systolic 2021-12-08 13:20:00 114 mm[Hg] [facility] blood pressure diastolic 2021-12-08 13:20:00 69 mm[Hg] [facility] height 2021-12-08 13:00:00 63 [in_i] Commo n [facility] weight 2021-12-08 13:00:00 184.2 [lb_av] Co mmon [facility] temperature 2021-12-08 13:00:00 98.8 [degF] Com mon [facility] bmi 2021-12-08 13:00:00 32.63 kg/m2 Comm on [facility] oximetry 2021-12-08 13:00:00 98 % Commo n [facility] respiratory rate 2021-12-08 13:00:00 17 /min Common [facility] blood pressure systolic 2021-12-08 13:00:00 114 mm[Hg] [facility] blood pressure diastolic 2021-12-08 13:00:00 69 mm[Hg] Common [facility] height 2021-08-19 14:00:00 63 [in_i] Commo n [facility] weight 2021-08-19 14:00:00 183 [lb_av] Comm on [facility] temperature 2021-08-19 14:00:00 97.8 [degF] Com mon [facility] bmi 2021-08-19 14:00:00 32.41 kg/m2 Comm on [facility] oximetry 2021-08-19 14:00:00 96 % Commo n [facility] respiratory rate 2021-08-19 14:00:00 16 /min [facility] blood pressure systolic 2021-08-19 14:00:00 122 mm[Hg] [facility] blood pressure diastolic 2021-08-19 14:00:00 53 mm[Hg] [facility] blood pressure systolic 2021-05-18 14:00:00 123 mm[Hg] [facility] blood pressure diastolic 2021-05-18 14:00:00 51 mm[Hg] Common [facility] height 2021-05-18 14:00:00 64 [in_i] Commo n [facility] weight 2021-05-18 14:00:00 187 [lb_av] Comm on [facility] temperature 2021-05-18 14:00:00 97.0 [degF] Com mon [facility] bmi 2021-05-18 14:00:00 32.09 kg/m2 Comm on [facility] oximetry 2021-05-18 14:00:00 97 % Commo n [facility] respiratory rate 2021-05-18 14:00:00 16 /min Common [facility] height 2021-02-16 14:00:00 64 [in_i] Commo n [facility] weight 2021-02-16 14:00:00 198.4 [lb_av] Co mmon [facility] temperature 2021-02-16 14:00:00 97.9 [degF] Com mon [facility] bmi 2021-02-16 14:00:00 34.05 kg/m2 Comm on [facility] oximetry 2021-02-16 14:00:00 98 % Commo n [facility] respiratory rate 2021-02-16 14:00:00 16 /min [facility] blood pressure systolic 2021-02-16 14:00:00 128 mm[Hg] [facility] blood pressure diastolic 2021-02-16 14:00:00 72 mm[Hg] [facility] Procedures Procedure Date / Time Performed Performing Clinicia n Source US, kidney 2024-01-10 00:00:00 [facility] Neurostimulation/modulation 2023-12-21 00:00:00 [facility] Percutaneous Sacral Nerve Evaluation 2023-11-10 00:00:00 [facility] US, kidney 2023-10-11 00:00:00 [facility] Cystoscopy 2023-09-19 00:00:00 Drea Meehan ed[facility] US, kidney 2023-08-02 00:00:00 [facility] Procedure on Gallbladder 2021-02-13 00:00:00 [facility] Hysterectomy 2002-02-13 00:00:00 [facility] Section 1978-02-13 00:00:00 [facility] Tonsillectomy 1949-02-13 00:00:00 [facility] Cholecystectomy [facility] Encounters Start Date/Time End Date/Time Encounter Type Admission Type Attending Clinicians Care Facility Care Department Encounter ID Source 2023-10-17 13:39:00 Outpatient Yesenia Galloway [facility] [id number] [facility] 2022-12-06 13:34:00 Outpatient LukeYesenia blanco [facility] [id number] [facility] 2022-07-20 15:21:01 Outpatient Nilesh Yesenia [facility] [id number] [facility] 2021-12-07 08:37:02 Outpatient Nilesh Yesenia [facility] [id number] [facility] 2021-08-17 11:42:01 Outpatient LukeYesenia blanco [facility] [id number] [facility] 2021-05-14 09:26:02 Outpatient Nilesh Yesenia [facility] [id number] [facility] 2021-03-10 14:30:45 Outpatient Nilesh Yesenia STLMLC [facility] [id number] [facility] 2024-01-10 00:00:00 2024-01-10 00:00:00 TELLO Liu: [address], [place] [address] , Ph. Formerly [facility] - GC[facility]GCBZW[facility]* [id number] [facility] 2023-12-20 00:00:00 2023-12-20 00:00:00 OFFICE VISIT ESTAB PT LEVEL 4 [facility]LMLC [facility] [id number] [facility] 2023-12-07 00:00:00 2023-12-07 00:00:00 TELLO Liu: [address], [place] [address] , Ph. Formerly [facility] - GC[facility]GCBZW_[facility]* [id number] [facility] 2023-11-17 00:00:00 2023-11-17 00:00:00 TELLO Liu: [address], [place] [address] , Ph. Formerly [facility] - GC_GCBZW_[facility]* [id number] [facility] 2023-11-10 00:00:00 2023-11-10 00:00:00 TELLO Liu: [address], [place] [address] , Ph. [facility]ly [facility] - GC[facility]BZW[facility]* [id number] [facility] 2023-10-24 00:00:00 2023-10-24 00:00:00 OFFICE VISIT ESTAB PT LEVEL 4 STLMLC STLMLC [id number] [facility] 2023-10-20 00:00:00 2023-10-20 00:00:00 (TEL) STLMLC STLMLC [id number] [facility] 2023-10-17 00:00:00 2023-10-17 00:00:00 (TEL) STLMLC STLMLC [id number] [facility] 2023-10-11 00:00:00 2023-10-11 00:00:00 Samanta London MD: [address], [place] [address] , Ph. [facility] - [facility]BZ[facility]* [id number] [facility] 2023-09-28 00:00:00 2023-09-28 00:00:00 TELLO Liu: [address], [place] [phone] , Ph. [facility]ly [facility] - [facility]BZ[facility]* [id number] [facility] 2023-09-19 00:00:00 2023-09-19 00:00:00 Samanta London MD: [address], [place] [phone] , Ph. [facility]ly [facility] - [facility]BZ[facility]* [id number] [facility] 2023-09-05 00:00:00 2023-09-05 00:00:00 TELLO Liu: [address], [place] [phone] , Ph. [facility] - [facility]* [id number] [facility] 2023-08-24 00:00:00 2023-08-24 00:00:00 TELLO Liu: [address], [place] [phone] , Ph. [facility]ly [facility] - [facility]BZ[facility]* [id number] [facility] 2023-08-02 00:00:00 2023-08-02 00:00:00 Samanta London MD: [address], [place] [phone] , Ph. [facility] - [facility]* [id number] [facility] 2023-07-20 00:00:00 2023-07-20 00:00:00 OFFICE VISIT ESTAB PT LEVEL 3 STLMLC [facility]C [id number] [facility] 2023-07-05 00:00:00 2023-07-05 00:00:00 OFFICE VISIT ESTAB PT LEVEL 3 STLMLC STL[facility]C [id number] [facility] 2023-07-04 00:00:00 2023-07-04 00:00:00 (TEL) STLMLC STLMLC [id number] [facility] 2023-05-11 00:00:00 2023-05-11 00:00:00 (TEL) STLMLC STLMLC [id number] [facility] 2023-05-08 00:00:00 2023-05-08 00:00:00 OFFICE VISIT ESTAB PT LEVEL 2 STLMLC STLMLC [id number] [facility] 2023-04-30 00:00:00 2023-04-30 00:00:00 (TEL) STLMLC STLMLC [id number] [facility] 2023-04-27 00:00:00 2023-04-27 00:00:00 (TEL) STLMLC STLMLC [id number] [facility] 2023-04-26 00:00:00 2023-04-26 00:00:00 (TEL) STLMLC STLMLC [id number] [facility] 2023-04-17 00:00:00 2023-04-17 00:00:00 OFFICE VISIT ESTAB PT LEVEL 3 STLMLC STLMLC [id number] [facility] 2023-01-02 00:00:00 2023-01-02 00:00:00 (TEL) STLMLC STLMLC [id number] [facility] 2022-12-26 00:00:00 2022-12-26 00:00:00 OFFICE VISIT ESTAB PT LEVEL 2 STLMLC STLMLC [id number] [facility] 2022-12-19 00:00:00 2022-12-19 00:00:00 (TEL) STLMLC STLMLC [id number] [facility] 2022-12-07 00:00:00 2022-12-07 00:00:00 SUB ANNUAL [facility] VISIT STLMLC STLMLC [id number] [facility] 2022-12-07 00:00:00 2022-12-07 00:00:00 OFFICE VISIT ESTAB PT LEVEL 4 STLMLC STLMLC [id number] [facility] 2022-11-16 00:00:00 2022-11-16 00:00:00 (TEL) STLMLC STLMLC [id number] [facility] 2022-11-03 00:00:00 2022-11-03 00:00:00 (TEL) STLMLC STLMLC [id number] [facility] 2022-10-27 00:00:00 2022-10-27 00:00:00 (TEL) STLMLC STLMLC [id number] [facility] 2022-07-20 00:00:00 2022-07-20 00:00:00 OFFICE VISIT NEW PT LEVEL 3 STLMLC STLMLC [id number] [facility] 2022-07-12 00:00:00 2022-07-12 00:00:00 (TEL) STLMLC STLMLC [id number] [facility] 2022-06-22 00:00:00 2022-06-22 00:00:00 (TEL) STLMLC STLMLC [id number] [facility] 2022-06-10 00:00:00 2022-06-10 00:00:00 OFFICE VISIT ESTAB PT LEVEL 4 STLMLC STLMLC [id number] [facility] 2022-06-03 00:00:00 2022-06-03 00:00:00 (TEL) STLMLC STLMLC [id number] [facility] 2021-12-08 00:00:00 2021-12-08 00:00:00 OFFICE VISIT ESTAB PT LEVEL 4 STLMLC STLMLC [id number] [facility] 2021-12-08 00:00:00 2021-12-08 00:00:00 SUB ANNUAL [facility] VISIT STLMLC STLMLC [id number] [facility] 2021-11-04 00:00:00 2021-11-04 00:00:00 (TEL) STLMLC STLMLC [id number] [facility] 2021-08-19 00:00:00 2021-08-19 00:00:00 OFFICE VISIT ESTAB PT LEVEL 4 STLC [facility] [id number] [facility] 2021-05-18 00:00:00 2021-05-18 00:00:00 OFFICE VISIT ESTAB PT LEVEL 4 [facility] [id number] [facility] 2021-02-16 00:00:00 2021-02-16 00:00:00 OFFICE VISIT ESTAB PT LEVEL 4 [facility] [id number] [facility] Results Test Description Test Time Test Comments Results Result Co mments Source Bacteria identified in Urine by [id number] 00:00:00* Test Item Value Reference Range Interpretation Comme nts culture, urine (test code = culture, urine) SEE BELOW no growth A [facility] Culture panel - [id number] 00:00:00* Test Item Value Reference Range Interpretation Comme nts bacteria, urine (test code = bacteria, urine) MANY none-few A blood, urine (test code = bl ood, urine) NEGATIVE negative bilirubin, urine (test code = bilirubin, urine) NEGATIVE negative cast, granular, ur (test cod e = cast, granular, ur) NOT PRESENT not present cast, hyaline, urine (test c ode = cast, hyaline, urine) PRESENT not present A cast, RBC, urine (test code = cast, RBC, urine) NOT PRESENT not present character (test code = character) CLOUDY clear A color (test code = color) DK YELLOW yellow crystals urine (test code = crystals urine) NONE none epithelial cells, ur (test c ode = epithelial cells, ur) MANY none-few A glucose, urine (test code = glucose, urine) NEGATIVE negative ketone, urine (test code = ketone, urine) TRACE negative A leukocyte esterase (test cod e = leukocyte esterase) MODERATE negative A nitrites urine (test code = nitrites urine) NEGATIVE negative pH urine (test code = pH urine) 5.5 5.0-8.0 protein, urine (test code = protein, urine) 1+,30 MG/DL negative A RBC, urine (test code = RBC, urine) 0-2 0-2 specific gravity ur (test co de = specific gravity ur) 1.024 1.003-1.030 urobilinogen urine (test cod e = urobilinogen urine) 1.0 mg/dL 0.2-1.0 WBC, urine (test code = WBC, urine) 21-50 0-5 [facility] Medicalurinalysis, [id number] 08:14:00* Test Item Value Reference Range Interpretation Comme nts Leukocytes (test code = Leukocytes) 1+ Nitrite (test code = Nitrite) negative Urobilinogen (test code = Urobilinogen) Normal Protein (test code = Protein) Trace pH (test code = pH) 6.0 Blood (test code = Blood) Negative Specific [place] (test code = Specific [place]) 1.015 Ketone (test code = Ketone) Negative Bilirubin (test code = Bilirubin) Negative Glucose (test code = Glucose) Negative Appearance (test code = Appearance) Clear Color (test code = Color) Yellow [facility] MedicalUrinalysis macro (dipstick) panel - [id number] 09:32:00* Test Item Value Reference Range Interpretation Comme nts Leukocytes (test code = Leukocytes) Negative Nitrite (test code = Nitrite) negative Urobilinogen (test code = Urobilinogen) 0.2 Protein (test code = Protein) Negative pH (test code = pH) 6.0 Blood (test code = Blood) Negative Specific [place] (test code = Specific [place]) 1.010 Ketone (test code = Ketone) Negative Bilirubin (test code = Bilirubin) Negative Glucose (test code = Glucose) Negative Appearance (test code = Appearance) Clear Color (test code = Color) Yellow [facility] Medicalurinalysis, [id number] 09:32:00* Test Item Value Reference Range Interpretation Comme nts Leukocytes (test code = Leukocytes) Negative Nitrite (test code = Nitrite) negative Urobilinogen (test code = Urobilinogen) 0.2 Protein (test code = Protein) Negative pH (test code = pH) 6.0 Blood (test code = Blood) Negative Specific [place] (test code = Specific [place]) 1.010 Ketone (test code = Ketone) Negative Bilirubin (test code = Bilirubin) Negative Glucose (test code = Glucose) Negative Appearance (test code = Appearance) Clear Color (test code = Color) Yellow [facility], [id number] 00:00:00* Test Item Value Reference Range Interpretation Comme nts CULTURE, URINE (test code = 630-4) SPECIMEN NUMBER: [id number] A CULTURE, [id number] 00:00:00* Test Item Value Reference Range Interpretation Comme nts CULTURE, URINE (test code = 630-4) SPECIMEN NUMBER: [id number] TSH REFLEX TO FREE [id number] 00:00:00* Test Item Value Reference Range Interpretation Comme nts TSH REFLEX TO FREE T4 (test code = 70264-6) 1.800 UIU/ML See_Comment [Automated messa ge] The system which generated this result transmitted reference range: 0.400-4.100 UIU/ML. The reference range was not used to interpret this result as normal/abnormal.
[2024-01-31 08:40] LABS: Absolute Basophils 0.1 K/uL (0-0.5); Absolute Lymphocytes (CBC) 2.4 K/uL (0.7-4.9); Absolute Monocytes 1.3 K/uL (0.1-1.3); Absolute Neutrophil 8.1 K/uL (1.8-8.0); Basophils % 0.5 % (0-1.3); Eosinophils % 0.4 % (0-4.4); Hematocrit 40.3 % (36.0-45.0); Hemoglobin 13.6 g/dL (12.0-15.0); Lymphocytes % 20.3 % (15.3-44.8); MCH 31.4 pg (27.0-35.0); MCHC 33.7 g/dL (32.0-36.0); MCV 93.3 fL (80-100); MPV 9.6 fL (7.6-11.3); Monocytes % 10.6 % (3.3-12.3); Neutrophils % 68.2 % (41.7-73.7); Nucleated Red Blood Cells % 0.1 % (0-0); Platelets 255 thou/uL (152-406); RBC Red Blood Cell Count 4.32 M/uL (3.86-4.86); Red Cell Distribution Width 13.9 % (12.1-15.2)
[2024-01-31] MEDS ORDERED: FLEET ENEMA ADULT PR ONE (08:49)
[2024-01-31 08:56] LABS: Albumin 3.3 g/dL (3.4-5.0); Albumin/Globulin Ratio 0.9 (1.1-1.8); Anion Gap 9.1 mEq/L (5.0-15.0); Bilirubin Total 0.6 mg/dL (0.2-1.0); Globulin 3.8 g/dL (2.3-3.5); Potassium 4.1 mEq/L (3.5-5.1); Protein, Total 7.1 g/dL (6.4-8.2)
[2024-01-31] MEDS ORDERED: NA CHLORIDE 0.9% 250 ML ONE (10:00)
--- NOTE | 2024-01-31 10:02 | RAD REPORT ---
EXAMINATION: CT ABDOMEN AND PELVIS WITH CONTRAST CLINICAL INDICATION: constipation, possible impaction TECHNIQUE: CT abdomen and pelvis was performed, after the administration of IV contrast, as per [facility] protocol. Axial, sagittal and coronal reconstructions were obtained. One or more of the following dose reduction techniques were used: Automated exposure control, adjustment of the mA and k V according to patient size, and iterative reconstruction. Unless otherwise specified, incidental findings do not require dedicated imaging follow-up. COMPARISON: 02/15/2020 FINDINGS: LOWER CHEST: The visualized lung bases are clear. LIVER: Normal in size and contour. No focal lesion. Cholecystectomy clips. SPLEEN: Normal size. No focal lesion. PANCREAS: No mass, ductal dilation, or barby-pancreatic fluid. ADRENALS: Normal; no mass. KIDNEYS: Normal size and contour. No hydronephrosis. GASTROINTESTINAL TRACT: No evidence of free air, significant intra-abdominal free fluid, bowel obstru ction or abscess. There is a moderate length of the sigmoid colon which demonstrates multiple diverticula and surrounding inflammation compatible with moderately severe acute diverticulitis. No a bscess is seen. APPENDIX: Normal appendix. LYMPH NODES: No lymphadenopathy. MUSCULOSKELETAL: No acute or suspicious osseous abnormality. ADDITIONAL FINDINGS: Small fat-containing umbilical hernia. IMPRESSION: Moderate sigmoid colon acute diverticulitis without abscess or other complication. After appropriate therapy, follow-up colonoscopy would be recommended to exclude the possibility of u nderlying mass lesion, which can have a similar CT appearance.
--- NOTE | 2024-01-31 10:27 | ER ---
Nurse's Notes [facility] Name: Elen Rapp Age: 84 yrs Sex: Female : 1940 Arrival Date: 01/31/2024 Time: 07:50 Bed 20 Private MD: Diagnosis: Diverticulitis of large intestine without perforation or abscess without bleeding Presentation: 01/30 08:30 Chief complaint: Patient states: CONSTIPATION X 3 DAYS. STATES TRIED ENEMA YESTERDAY db WITHOUT RELIEF. Coronavirus screen: Client denies travel out of the [place] in the last 14 days. At this time, the client does not indicate any symptoms associated with coronavirus-19. Ebola Screen: Patient negative for fever greater than or equal to 101.5 degrees Fahrenheit, and additional compatible Ebola Virus Disease symptoms Patient denies exposure to infectious person. Patient denies travel to an Ebola-affected area in the 21 days before illness onset. No symptoms or risks identified at this time. Initial Sepsis Screen: Does the patient meet any 2 criteria? No. Patient's initial sepsis screen is negative. Does the patient have a suspected source of infection? No. Patient's initial sepsis screen is negative. Risk Assessment: Do you want to hurt yourself or someone else? Patient reports no desire to harm self or others. Onset of symptoms was January 28, 2024. 08:30 Method Of Arrival: Ambulatory db 08:30 Acuity: YAZ 3 db Triage Assessment: 08:30 General: Appears in no apparent distress. comfortable, Behavior is calm, cooperative. db Pain: Complains of pain in abdomen. Neuro: Level of Consciousness is awake, alert, obeys commands, Oriented to person, place, time, situation. Respiratory: Airway is patent Respiratory effort is even, unlabored, Respiratory pattern is regular, symmetrical. GI: Abdomen is non-distended, Bowel sounds present X 4 quads. Reports constipation. Historical: - Allergies: 08:30 PROPOFOL; db - PMHx: 08:30 Hypertension; CHF; Thyroid problem; db - Immunization history:: Adult Immunizations unknown. - Infectious Disease History:: Denies. - Social history:: Smoking status: Patient denies any tobacco usage or history of. - Family history:: not pertinent. - Hospitalizations: : No recent hospitalization is reported. Screenin:30 [facility] ED Fall Risk Assessment (Adult) History of falling in the last 3 months, db including since admission No falls in past 3 months (0 pts) Confusion or Disorientation No (0 pts) Intoxicated or Sedated No (0 pts) Impaired Gait No (0 pts) Mobility Assist Device Used No (0 pt) Altered Elimination No (0 pt) Score/Fall Risk Level 0 - 2 = Low Risk Oriented to surroundings, Maintained a safe environment. Abuse screen: Denies threats or abuse. Denies injuries from another. Nutritional screening: No deficits noted. Tuberculosis screening: No symptoms or risk factors identified. Assessment: 08:30 Reassessment: Patient appears in no apparent distress at this time. Patient and/or db family updated on plan of care and expected duration. Pain level reassessed. Patient is alert, oriented x 3, equal unlabored respirations, skin warm/dry/pink. SEE TRIAGE FOR INITIAL ASSESSMENT. GI: Abd is soft Abd is non tender. 09:31 Reassessment: Patient appears in no apparent distress at this time. Patient and/or db family updated on plan of care and expected duration. Pain level reassessed. Patient is alert, oriented x 3, equal unlabored respirations, skin warm/dry/pink. PATIENT REPORTS HAVING A SMALL BM AFTER ENEMA. FEELS ONLY SMALL RELIEF. 12:29 Reassessment: Patient appears in no apparent distress at this time. Patient and/or db family updated on plan of care and expected duration. Pain level reassessed. Patient is alert, oriented x 3, equal unlabored respirations, skin warm/dry/pink. Vital Signs: 09:00 BP 127 / 58; Pulse 76; Resp 16; Temp 98.3; Pulse Ox 98% ; Weight 90.72 kg; Height 5 ft. db 3 in. ; 10:00 BP 123 / 64; Pulse 71; Resp 16; Pulse Ox 98% ; db 11:00 BP 125 / 67; Pulse 72; Resp 18; Pulse Ox 99% on R/A; db 12:00 BP 139 / 66; Pulse 70; Resp 16; Pulse Ox 96% on R/A; db 09:00 Body Mass Index 35.43 (90.72 kg, 160.02 cm) db ED Course: 07:56 Patient arrived in ED. im 07:57 Sami Minor MD is Attending Physician. rn 08:15 Mooney, Sylvia, RN is Primary Nurse. db 08:30 Arm band placed on Patient placed in an exam room. db 08:30 Patient has correct armband on for positive identification. Placed in gown. Bed in low db position. Call light in reach. Side rails up X 1. Pulse ox on. NIBP on. Warm blanket given. Pillow given. 08:30 Initial lab(s) drawn, by me, sent to lab. Inserted saline lock: 22 gauge in right db antecubital area, using aseptic technique. Blood collected. Flushed with 10 mL NS. 09:07 Triage completed. db 09:46 CT Abd/Pelvis - IV Contrast Only In Process Unspecified. EDMS 10:25 Ernst Minor MD is Hospitalizing Provider. rn 11:42 Provided Education on: ADMISSION. db 11:42 No provider procedures requiring assistance completed. Patient admitted, IV remains in db place. Administered Medications: 08:50 Drug: Fleet Enema IN 133 ml IN once; may repeat once Route: IN; db 11:25 Follow up: Response: No adverse reaction; Other; Other SMALL RELIEF db 10:03 Drug: NS 0.9% IV 250 ml IV at bolus once; to be given as a bolus over 30 minutes Route: db IV; Rate: bolus; Site: right antecubital; 11:10 Follow up: Response: No adverse reaction; IV Status: Completed infusion; IV Intake: db 250ml 11:00 Drug: Rocephin IV 1 grams IV at calculated rate once; Given slow IV push per pharmacy db instructions Route: IV; Rate: calculated rate; Site: right antecubital; 11:25 Follow up: Response: No adverse reaction; IV Status: Completed infusion; IV Intake: 50mldb 11:22 Drug: metroNIDAZOLE IVPB 500 mg 100 ml IVPB at 200 ml/hr once over 30 mins Volume: 100 db ml; Route: IVPB; Rate: 200 ml/hr; Infused Over: 30 mins; Site: right antecubital; 12:30 Follow up: Response: No adverse reaction; IV Status: Completed infusion; IV Intake: db 100ml Medication: 08:30 VIS not applicable for this client. db Intake: 11:10 IV: 250ml; Total: 250ml. db 11:25 IV: 50ml; Total: 300ml. db 12:30 IV: 100ml; Total: 400ml. db Outcome: 10:26 Decision to Hospitalize by Provider. rn 11:42 Admitted to Med/surg room 430, Report called to FAXED TO UNIT CONFIRMED WITH RAIMN somers 11:42 Condition: stable 11:42 Instructed on the need for admit, 12:30 Patient left the ED. db Signatures: Dispatcher [employer] EDSami Wilson MD MD rn Benton, Danielle, RN RN db Mendoza, Itzel im Corrections: (The following items were deleted from the chart) 09:07 08:30 Chief complaint: Patient states: CONSTIPATION X 3 DAYS. db db 09:08 08:30 Chief complaint: Patient states: CONSTIPATION X 3 DAYS. STATES TRIED ENEMA db YESTERDAY WITHOUT SUCCESS db
--- NOTE | 2024-01-31 10:27 | EDPHYS ---
Physician Documentation [facility] Name: Elen Rapp Age: 84 yrs Sex: Female : 1940 Arrival Date: 01/31/2024 Time: 07:50 Bed 20 Private MD: ED Physician Sami Minor HPI: 01/30 09:08 This 84 yrs old Female presents to ER via Ambulatory with complaints of Constipation, rn Abdominal Pain. 09:08 Onset: The symptoms/episode began/occurred at an unknown time. Modifying factors: The rn symptoms are alleviated by nothing, the symptoms are aggravated by nothing. The patient has experienced similar episodes in the past. Patient reports constipation, unable to have bowel movement. Only liquid stool coming out. Feels like she has a blockage. Has chronic bowel problems. No fever or chills. No focal abdominal pain. No distention.. Historical: - Allergies: 08:30 PROPOFOL; db - PMHx: 08:30 Hypertension; CHF; Thyroid problem; db - Immunization history:: Adult Immunizations unknown. - Infectious Disease History:: Denies. - Social history:: Smoking status: Patient denies any tobacco usage or history of. - Family history:: not pertinent. - Hospitalizations: : No recent hospitalization is reported. ROS: 09:08 Constitutional: Negative for fever, chills, and weight loss, Cardiovascular: Negative rn for chest pain, palpitations, and edema, Respiratory: Negative for shortness of breath, cough, wheezing, and pleuritic chest pain, Abdomen/GI: Positive for constipation Exam: 09:08 Constitutional: This is a well developed, well nourished patient who is awake, alert, rn and in no acute distress. Abdomen/GI: Soft, non-tender, nondistended Vital Signs: 09:00 BP 127 / 58; Pulse 76; Resp 16; Temp 98.3; Pulse Ox 98% ; Weight 90.72 kg; Height 5 ft. db 3 in. ; 10:00 BP 123 / 64; Pulse 71; Resp 16; Pulse Ox 98% ; db 11:00 BP 125 / 67; Pulse 72; Resp 18; Pulse Ox 99% on R/A; db 12:00 BP 139 / 66; Pulse 70; Resp 16; Pulse Ox 96% on R/A; db 09:00 Body Mass Index 35.43 (90.72 kg, 160.02 cm) db MDM: 07:57 Medical Screening Exam initiated rn 10:25 Differential diagnosis: bowel obstruction, Diverticulitis, fecal impaction. Data rn reviewed: vital signs, nurses notes, lab test result(s), radiologic studies, CT scan, and as a result, I will admit patient. Consideration of Admission/Observation Patient was admitted/placed on observation. Escalation of care including admission/observation considered. Counseling: I had a detailed discussion with the patient and/or guardian regarding the historical points, exam findings, and any diagnostic results supporting the discharge/admit diagnosis, lab results, radiology results, the need for further work-up and treatment in the hospital. Response to treatment: There is no appreciated change of the patient's symptoms at this time, and as a result, I will admit patient. ED course: CT shows moderate acute diverticulitis without perforation or complication. Will admit to hospital for IV antibiotics. 01/30 08:10 Order name: CBC with Diff; Complete Time: 09: rn 01/30 08:10 Order name: CMP; Complete Time: 09: rn 01/30 08:10 Order name: CT Abd/Pelvis - IV Contrast Only; Complete Time: 10:21 rn 01/30 08:10 Order name: IV Saline Lock; Complete Time: 09: rn 01/30 08:10 Order name: Labs collected and sent; Complete Time: 09:06 rn Administered Medications: 08:50 Drug: Fleet Enema IA 133 ml IA once; may repeat once Route: IA; db 11:25 Follow up: Response: No adverse reaction; Other; Other SMALL RELIEF db 10:03 Drug: NS 0.9% IV 250 ml IV at bolus once; to be given as a bolus over 30 minutes Route: db IV; Rate: bolus; Site: right antecubital; 11:10 Follow up: Response: No adverse reaction; IV Status: Completed infusion; IV Intake: db 250ml 11:00 Drug: Rocephin IV 1 grams IV at calculated rate once; Given slow IV push per pharmacy db instructions Route: IV; Rate: calculated rate; Site: right antecubital; 11:25 Follow up: Response: No adverse reaction; IV Status: Completed infusion; IV Intake: 50mldb 11:22 Drug: metroNIDAZOLE IVPB 500 mg 100 ml IVPB at 200 ml/hr once over 30 mins Volume: 100 db ml; Route: IVPB; Rate: 200 ml/hr; Infused Over: 30 mins; Site: right antecubital; 12:30 Follow up: Response: No adverse reaction; IV Status: Completed infusion; IV Intake: db 100ml Disposition Summary: 01/31/24 10:26 Hospitalization Ordered Notes: Hospitalization Status: Inpatient Admission rn Provider: Ernst Minor rn Location: Telemetry/MedSurg (Inpatient) rn Condition: Stable rn Problem: new rn Symptoms: are unchanged rn Bed/Room Type: Standard rn Room Assignment: 430(01/31/24 11:01) bd Diagnosis - Diverticulitis of large intestine without perforation or abscess without bleeding rn Forms: - Medication Reconciliation Form rn - SBAR form rn - Leadership Thank You Letter rn Signatures: Dispatcher [facility] Radha Storey Roman, MD MD rn Benton, Danielle, RN RN db Corrections: (The following items were deleted from the chart) 08:10 08:10 Abdomen Pelvis W Con+CT.RAD.BRZ ordered. EDTN EDTN 11:01 10:26 rn bd
--- NOTE | 2024-01-31 10:48 | P.HP ---
Certification for Inpatient Patient admitted to: Inpatient With expected LOS: >2 Midnights Patient will require the following post-hospital care: None Practitioner: I am a practitioner with admitting privileges, knowledge of patient current condition, hospital course, and medical plan of care. Services: Services provided to patient in accordance with Admission requirements found in Title 42 Section 412.3 of the Code of Federal Regulations Patient History Date of Service: 01/31/24 Reason for admission: Acute diverticulitis History of Present Illness: 84-year-old female with history of CHF, hypothyroidism presents emergency department with 1 day history of left lower quadrant abdominal pain, progressive constipation for the last few days. She was evaluated in the emergency department labs were significant for white blood cell count of 11.9 creatinine 1.11 GFR [address] abdomen pelvis with IV contrast was performed which showed moderate sigmoid colon acute diverticulitis without abscess or other complication. Patient will be admitted for acute diverticulitis. Allergies propofol Allergy (Verified 12/21/23 13:09) anaphylaxis and hives Home Medications: oxyBUTYnin chloride [Ditropan*] 5 mg PO BID 04/29/19 Bumetanide 1 mg PO DAILY 12/20/23 Cholecalciferol (Vitamin D3) [D3-50] 1,250 mcg PO BEDTIME 12/20/23 Levothyroxine [Synthroid] 125 mcg PO DAILY 12/20/23 Mv-Min/FA/Vit K/Lutein/Zeaxant [Preservision Areds 2 Plus Mv] 2 each PO BEDTIME 12/20/23 carvediloL [Carvedilol] 1 tab PO BID 12/20/23 - Past Medical/Surgical History Diabetic: No -: Hypothyroidism -: Factor V Laden deficiency -: CHFunknown EF -: bowel obs 02/14/2020 -: Hysterectomy -: CS - Family History Sister -: Cancer - Social History Alcohol use: Yes CD- Drugs: No Caffeine use: Yes Review of Systems 10-point ROS is otherwise unremarkable Gastrointestinal: Nausea, Abdominal Pain, Constipation Physical Examination - Physical Exam General: Alert, In no apparent distress, Oriented x3 HEENT: Atraumatic, PERRLA, Mucous membr. moist/pink, EOMI, Sclerae nonicteric Neck: Supple, 2+ carotid pulse no bruit, No LAD Respiratory: Clear to auscultation bilaterally, Normal air movement Cardiovascular: Regular rate/rhythm, Normal S1 S2 Gastrointestinal: Normal bowel sounds, Tenderness (Mild left lower quadrant, suprapubic tenderness) Musculoskeletal: No tenderness Integumentary: No rashes Neurological: Normal speech, Normal strength at 5/5 x4 extr, Normal affect Lymphatics: No axilla or inguinal lymphadenopathy - Studies Laboratory Data (last 24 hrs) 01/31/24 01/31/24 08:30 08:30 WBC 11.90 H Hgb 13.6 Hct 40.3 Plt Count 255 Sodium 138 Potassium 4.1 BUN 20 H Creatinine 1.11 H Glucose 148 H Total Bilirubin 0.6 AST 17 ALT 25 Alkaline Phosphatase 114 Assessment and Plan - Plan Assessment: Moderate sigmoid acute diverticulitis Constipation Chronic CHFunknown EF Hypothyroidism Plan: Moderate sigmoid acute diverticulitis Constipation Clear liquid diet IV antibiotics with Cipro/Flagyl As needed pain medications and antiemetics Gentle IV fluids given history of CHF Serial abdominal exams Chronic CHFunknown EF Appears euvolemic at this time Restart Bumex when dose verified Denies chest pain or dyspnea Hypothyroidism Continue home medications when verified DVT PPX: Lovenox Code status: Full Discharge Plan: Home Plan to discharge in: 48 Hours - Advance Directives Does patient have a Living Will: No Does patient have a Durable POA for Healthcare: Yes - Code Status/Comfort Care Code Status Assessed: Yes (Full code) Critical Care: No Time Spent Managing Pts Care (In Minutes): 65
[2024-01-31] MEDS ORDERED: METRONIDAZOLE 500mg IVPB 500 MG/100 ML BAG IV ONE (11:18)
[2024-01-31] MEDS ORDERED: CEFTRIAXONE 1000 MG/VIAL ONE (11:18)
[2024-01-31] MEDS ORDERED: NA CHLORIDE 0.9% 50 ML ONE (11:18)
[2024-01-31 12:40] VITALS: O2SAT 96
[2024-01-31] MEDS ORDERED: MORPHINE 2 MG/ML SYR IV PRN (13:55)
[2024-01-31] MEDS ORDERED: ONDANSETRON 4 MG/2 ML VIAL IV PRN (13:55)
[2024-01-31] MEDS: NA CHLORIDE 0.9% 1,000 ML IV SCH (14:26)
[2024-01-31 15:45] VITALS: BMI 35.4
[2024-01-31] MEDS ORDERED: FLU (Fluarix Triv) TS24-25(6MOS UP)/PF 45 MCG/0.5 ML Syringe IM ONE (16:00)
[2024-01-31] MEDS: METRONIDAZOLE 500mg IVPB 500 MG/100 ML BAG IV SCH (17:08)
[2024-01-31] MEDS: carvediloL 3.125 MG TAB PO SCH (21:36)
[2024-01-31] MEDS: ACETAMINOPHEN 325 MG TABLET ONE (21:37)
[2024-01-31] MEDS: CIPROFLOXACIN 400mg IV 400 MG/200 ML BAG IV SCH (21:38)
[2024-01-31] MEDS ORDERED: ACETAMINOPHEN 325 MG TABLET PO PRN (21:44)
[2024-02-01 06:53] LABS: Absolute Basophils 0.1 K/uL (0-0.5); Absolute Eosinophils 0.1 K/uL (0-0.5); Absolute Monocytes 0.6 K/uL (0.1-1.3); Absolute Neutrophil 2.8 K/uL (1.8-8.0); Basophils % 0.9 % (0-1.3); Eosinophils % 1.8 % (0-4.4); Hematocrit 37.2 % (36.0-45.0); Hemoglobin 12.4 g/dL (12.0-15.0); Lymphocytes % 36.3 % (15.3-44.8); MCH 31.7 pg (27.0-35.0); MCHC 33.4 g/dL (32.0-36.0); MPV 9.8 fL (7.6-11.3); Monocytes % 10.7 % (3.3-12.3); Neutrophils % 50.3 % (41.7-73.7); Platelets 196 thou/uL (152-406); RBC Red Blood Cell Count 3.91 M/uL (3.86-4.86); Red Cell Distribution Width 14.1 % (12.1-15.2)
[2024-02-01 07:14] LABS: Anion Gap 6.2 mEq/L (5.0-15.0); Potassium 4.2 mEq/L (3.5-5.1)
[2024-02-01] MEDS: BUMETANIDE 1 MG TABLET PO SCH (09:00)
[2024-02-01] MEDS: ENOXAPARIN 40 MG/0.4 ML SQ SCH (09:13)
[2024-02-01] MEDS: LEVOTHYROXINE SOD 0.125 MG TAB PO SCH (09:13)
--- NOTE | 2024-02-01 15:34 | P.PN ---
Date of Service: 02/01/24 Subjective Awake, tolerating CLD but does not like apple juice or broth Reports passing gas Encouraged to ambulate in the hallway Will continue IV antibiotics ROS 10 point ROS as noted above, otherwise negative Physical Exam General: Alert and Oriented x3, NAD HEENT: Atraumatic, PERRLA, Mucous membr. moist/pink, EOMI, Sclerae nonicteric Neck: Supple, 2+ carotid pulse no bruit, No LAD Respiratory: Clear BBS, Normal air movement, on RA Cardiovascular: Regular rate/rhythm, Normal S1 S2 Gastrointestinal: Normal bowel sounds, Tenderness (Mild left lower quadrant, suprapubic tenderness) Musculoskeletal: No tenderness Integumentary: No rashes Neurological: Normal speech, Normal strength at 5/5 x4 extr, Normal affect Lymphatics: No axilla or inguinal lymphadenopathy Vitals Reviewed Assessment: Moderate sigmoid acute diverticulitis Constipation Chronic CHFunknown EF Hypothyroidism Plan: Moderate sigmoid acute diverticulitis Constipation Continue Clear liquid diet IV antibiotics with Cipro/Flagyl As needed pain medications and antiemetics Gentle IV fluids given history of CHF Serial abdominal exams Chronic CHFunknown EF Appears euvolemic at this time Restart Bumex when dose verified Denies chest pain or dyspnea Hypothyroidism Continue home medications when verified DVT PPX: Lovenox Code status: Full Discharge Plan: Home Plan to discharge in: 24 Hours
[2024-02-02 06:31] LABS: Absolute Eosinophils 0.3 K/uL (0-0.5); Absolute Lymphocytes (CBC) 1.6 K/uL (0.7-4.9); Absolute Monocytes 0.7 K/uL (0.1-1.3); Absolute Neutrophil 4.2 K/uL (1.8-8.0); Basophils % 0.5 % (0-1.3); Eosinophils % 4.1 % (0-4.4); Hematocrit 40.5 % (36.0-45.0); Hemoglobin 13.3 g/dL (12.0-15.0); Lymphocytes % 23.1 % (15.3-44.8); MCH 31.7 pg (27.0-35.0); MCHC 32.9 g/dL (32.0-36.0); MCV 96.3 fL (80-100); MPV 9.9 fL (7.6-11.3); Monocytes % 10.1 % (3.3-12.3); Neutrophils % 62.2 % (41.7-73.7); Platelets 233 thou/uL (152-406); Red Cell Distribution Width 13.9 % (12.1-15.2)
[2024-02-02 06:55] LABS: Magnesium 2.3 mg/dL (1.6-2.4); Phosphorus 2.4 mg/dL (2.5-4.9)
--- NOTE | 2024-02-02 13:02 | P.DS ---
Admission Date: 01/31/24 Discharge Date: 02/02/24 Disposition: ROUTINE DISCHARGE Discharge Condition: GOOD Reason for Admission: Acute diverticulitis Brief History of Present Illness: Diagnosis Moderate sigmoid acute diverticulitis Constipation Chronic CHFunknown EF Hypothyroidism HPI 01/31/24 Elen Rapp is an 84-year-old female with history of CHF, hypothyroidism presents emergency department with 1 day history of left lower quadrant abdominal pain, progressive constipation for the last few days. She was evaluated in the emergency department labs were significant for white blood cell count of 11.9 creatinine 1.11 GFR [address] abdomen pelvis with IV contrast was performed which showed moderate sigmoid colon acute diverticulitis without abscess or other complication. Patient will be admitted for acute diverticulitis. Hospital Course: Elen was found to have moderate sigmoid colon diverticulitis on the CT abd/pelvis imaging and complained of constipation. She was started NPO for bowel rest and IV antibiotics. She reported a large bowel movement. She was advanced to CLD and tolerated with no abdominal pain. She maintained the ability to ambulate independently, tolerated IV antibiotics, and abdominal pain resolved. The plan is to follow up with GI for a colonoscopy six weeks after recovery. On 02/02/24, Elen was seen on morning rounds, tolerating CLD/FLD and deemed medically stable for discharge. Elen was discharged with instructions to schedule follow-up appointments with PCP and Dr. Kent. Elen was provided prescriptions for Flagyl and Ciprofloxacin. Physical Exam General: AAO x3, NAD HEENT: Atraumatic, PERRLA, MMM, EOMI Neck: Supple, 2+ carotid pulse no bruit, No LAD Respiratory: Clear BBS, Symmetrical chest wall movement, on RA Cardiovascular: RRR, Normal S1 S2, no murmur noted Gastrointestinal: Normal bowel sounds, Tenderness (Mild left lower quadrant, suprapubic tenderness) Musculoskeletal: No tenderness Integumentary: No rashes Neurological: Normal speech, Normal strength at 5/5 x4 extr, Normal affect Lymphatics: No axilla or inguinal lymphadenopathy Vital Signs/Physical Exam: Temp Pulse Resp BP Pulse Ox 97.8 F 69 20 137/59 L 96 02/02/24 08:00 02/02/24 08:24 02/02/24 08:00 02/02/24 08:24 02/02/24 08:00 Laboratory Data at Discharge: WBC 6.70 thou/uL (4.3-10.9) 02/02/24 06:23 Hgb 13.3 g/dL (12.0-15.0) 02/02/24 06:23 Hct 40.5 % (36.0-45.0) 02/02/24 06:23 Plt Count 233 thou/uL (152-406) 02/02/24 06:23 Sodium 138 mEq/L (136-145) 02/02/24 06:23 Potassium 4.0 mEq/L (3.5-5.1) 02/02/24 06:23 BUN 10 mg/dL (7-18) 02/02/24 06:23 Creatinine 1.05 mg/dL (0.55-1.02) H 02/02/24 06:23 Glucose 131 mg/dL (74-106) H 02/02/24 06:23 Phosphorus 2.4 mg/dL (2.5-4.9) L 02/02/24 06:23 Magnesium 2.3 mg/dL (1.6-2.4) 02/02/24 06:23 Total Bilirubin 0.6 mg/dL (0.2-1.0) 01/31/24 08:30 AST 17 U/L (15-37) 01/31/24 08:30 ALT 25 U/L (13-56) 01/31/24 08:30 Alkaline Phosphatase 114 U/L (45-117) 01/31/24 08:30 Home Medications: Bumetanide 1 mg PO DAILY 12/20/23 Cholecalciferol (Vitamin D3) [D3-50] 1,250 mcg PO BEDTIME 12/20/23 Levothyroxine [Synthroid*] 125 mcg PO DAILY 12/20/23 Mv-Min/FA/Vit K/Lutein/Zeaxant [Preservision Areds 2 Plus Mv] 2 each PO BEDTIME 12/20/23 carvediloL [Carvedilol] 1 tab PO BID 12/20/23 Ciprofloxacin HCl [Cipro 500 MG Tablet] 500 mg PO BID 7 Days #14 tab 02/02/24 metroNIDAZOLE [Flagyl] 500 mg PO Q8H 7 Days #21 tab 02/02/24 New Medications: Ciprofloxacin HCl [Cipro 500 MG Tablet] 500 mg PO BID 7 Days #14 tab metroNIDAZOLE [Flagyl] 500 mg PO Q8H 7 Days #21 tab Physician Discharge Instructions: 1. Follow up with PCP in one week -all medication refills will be managed by PCP 2.Follow up with Dr. Kent in two weeks -colonoscopy will need to be scheduled when diverticulitis has resolved 3. Continue with a soft GI diet as tolerated 4. no activity restrictions 5. Return to the ED if symptoms worsen New medications Ciprofloxacin 500 mg twice daily for 7 days Flagyl 500 mg Q8H for 7 days Diet: soft Activity: Ad elda Followup: Yesenia Galolway NP [Primary Care Provider] - Bimal Kent MD [ACTIVE - CAN ADMIT] -
[2024-02-02 13:34] VITALS: BP 131/60; TEMP 98.2
== END 2024-02-02 13:45 | disposition home or self-care (01) | DRG 392 ==
LOC: ER 07:50 → ERHOLD 10:42 → 4TH 11:30
PROVIDERS: ADMIT Hospitalist; ATTEND Hospitalist
DX: K57.32 Diverticulitis of large intestine without perforation or abscess without bleeding (principal); I11.0 Hypertensive heart disease with heart failure; I50.9 Heart failure, unspecified; K59.00 Constipation, unspecified; E03.9 Hypothyroidism, unspecified; Z88.8 Allergy status to other drugs, medicaments and biological substances; Z79.02 Long term (current) use of antithrombotics/antiplatelets; Z79.899 Other long term (current) drug therapy; Z90.710 Acquired absence of both cervix and uterus
CPT/HCPCS: 36415; 74177; 80048; 80053; 83735; 84100; 85025; 96361; 96365; 97116; 97161; 99285; J0696; J0744; J1650; J7030; J7050; Q9967

== ENCOUNTER 2024-11-21 10:34 | Emergency (ER) | payer OTHER ==
--- OUTSIDE RECORDS SUMMARY | 2024-11-21 10:40 | XMS REPORT | Continuity of Care Document ---
Author Name Unknown Address [address] [facility] [address] [place] [address] [facility] Address [address] 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 ce Problem Active 4-02 00:00: 00 [facility] Urge incontinen ce of urine Urge Incontinen [...] Loose Stool Problem Active 08-01 00:00: 00 [facility] [id number] Functional diarrhea Problem [facility] [id number] Dysuria Problem [facility] SI - Stress incontinen ce Stress incontinen ce of urine Problem [facility] [id number] Macular degenerati on (senile) of retina Problem [facility] [id number] Hypothyroi dism, unspecifie d type Problem [facility] [id number] Stage 2 chronic kidney disease Problem Common [facility] Right hip pain Pain, joint, hip, right Problem [facility] [id number] Trochanter ic bursitis of right hip Problem [facility] [id number] Idiopathic hypotensio n Problem [facility] Chronic systolic heart failure Chronic systolic congestive heart failure Problem [facility] [id number] Vitamin D deficiency Problem [facility] [id number] PAD (periphera l artery disease) Problem [facility] [id number] Pure hyperchole sterolemia Problem [facility] [id number] Skin lesions Problem [facility] [id number] Other seasonal allergic rhinitis Problem [facility] [id number] Primary insomnia Problem [facility] [id number] Encounter for removal of sutures Problem [facility] [id number] Factor 5 Leiden mutation, heterozygo us Problem [facility] [id number] Osteopenia of lumbar spine Problem [facility] [id number] Acute cystitis without hematuria Problem [facility] [id number] Chronic diastolic congestive heart failure Problem [facility] [id number] Acute diverticul itis Problem [facility] [id number] Body mass index [BMI] 36.0-36.9, adult Problem [facility] [id number] Morbid (severe) obesity due to excess calories Problem [facility] Allergies, Adverse Reactions, Alerts Allergy Name Allergy Type Status Severity Reaction(s) Onset Date Inactive Date Treating Clinician Comments Source Myrbetri q Allergy to substanc e Active Hives [facility] Propofol Allergy to substanc e Active Severe Other [facility] 4699 Drug allergy Active facial swelling [facility] sacubitr il / valsarta n sacubitr il / valsarta n Active vomiting [facility] metronid azole metronid azole Active hives [facility] ciproflo xacin ciproflo xacin Active hives [facility] Social History Social Habit Start Date Stop Date Quantity Comments Source History of Tobacco Use [facility] Sex Assigned At [facility] Smoking Status Start Date Stop Date Source Former Smoker [facility] Never Smoker [facility] Medications Ordered Medication Name Filled Medication Name Start Date Stop Date Current Medication? Ordering Clinician Indication Dosage Frequency Signature (SIG) Comments Components Source bumetanide 1 mg tablet Take 1 tablet every day by oral route. bumetanide 1 mg tablet Take 1 tablet every day by oral route. 2023-02 0-24 00:00: 00 No 1 Q1D bumetanide 1 mg tablet Take 1 tablet every day by oral route. [facility] Lidocaine Lidocaine 6 00:00: 00 No 5mL [facility] Kenalog (Triamcinol one) Kenalog (Triamcinol one) 6-07 00:00: 00 No 2mL [facility] Fluticasone Propionate 50 MCG/ACT Fluticasone Propionate 50 MCG/ACT 4-05 00:00: 00 No 1{spray _in_eac h_nostr il} QD Fluticason e Propionate 50 MCG/ACT D3 Adult 1000 UNIT D3 Adult 1000 UNIT No 1{table t} QD D3 Adult 1000 UNIT Carvedilol 6.25 MG Carvedilol 6.25 MG No Carvedilol 6.25 MG Bumetanide 1 MG Bumetanide 1 MG No 1{table t} QD Bumetanide 1 MG Levothyroxi ne Sodium 137 MCG Levothyroxi ne Sodium 137 MCG No QD Levothyrox ine Sodium 137 MCG Atorvastati n Calcium 10 MG Atorvastati n Calcium 10 MG No Atorvastat in Calcium 10 MG carvedilol 3.125 mg tablet Take 1 tablet twice a day by oral route. carvedilol 3.125 mg tablet Take 1 tablet twice a day by oral route. No 1 BID carvedilol 3.125 mg tablet Take 1 tablet twice a day by oral route. [facility] estradiol 0.01% (0.1 mg/gram) vaginal cream INSERT 0.5G BY IN VAGINAL ROUTE THREE TIMES A WEEK. estradiol 0.01% (0.1 mg/gram) vaginal cream INSERT 0.5G BY IN VAGINAL ROUTE THREE TIMES A WEEK. No .5g Q56H estradiol 0.01% (0.1 mg/gram) vaginal cream INSERT 0.5G BY IN VAGINAL ROUTE THREE TIMES A WEEK. [facility] levothyroxi ne levothyroxi ne No levothyrox ine [facility] Vitamin D Vitamin D No Vitamin D [facility] Alendronate Sodium 35 MG Alendronate Sodium 35 MG 11-14 00:00 :00 No Alendronat e Sodium 35 MG Immunizations Ordered Immunization Name Filled Immunization Name Date Status Comments Source Pneumovax (PPSV23) Pneumovax (PPSV23) 2020-11-19 13:45:00 Completed [facility] FLUZONE HIGH DOSE OVER 65 FLUZONE HIGH DOSE OVER 65 2020-11-19 13:45:00 Completed [facility] Pneumovax (PPSV23) Pneumovax (PPSV23) 2020-11-19 13:45:00 Completed [facility] FLUZONE HIGH DOSE OVER 65 FLUZONE HIGH DOSE OVER 65 2020-11-19 13:45:00 Completed [facility] Pneumovax (PPSV23) Pneumovax (PPSV23) 2020-11-19 13:45:00 Completed [facility] FLUZONE HIGH DOSE OVER 65 FLUZONE HIGH DOSE OVER 65 2020-11-19 13:45:00 Completed [facility] Pneumovax (PPSV23) Pneumovax (PPSV23) 2020-11-19 13:45:00 Completed [facility] FLUZONE HIGH DOSE OVER 65 FLUZONE HIGH DOSE OVER 65 2020-11-19 13:45:00 Completed [facility] Moderna COVID-19 Vaccine Moderna COVID-19 Vaccine 2020-03-24 14:08:00 Completed [facility] Moderna COVID-19 Vaccine Moderna COVID-19 Vaccine 2020-03-24 14:08:00 Completed [facility] Moderna COVID-19 Vaccine Moderna COVID-19 Vaccine 2020-03-24 14:08:00 Completed [facility] Moderna COVID-19 Vaccine Moderna COVID-19 Vaccine 2020-03-24 14:08:00 Completed [facility] Moderna COVID-19 Vaccine Moderna COVID-19 Vaccine 2020-02-26 14:08:00 Completed [facility] Moderna COVID-19 Vaccine Moderna COVID-19 Vaccine 2020-02-26 14:08:00 Completed [facility] Moderna COVID-19 Vaccine Moderna COVID-19 Vaccine 2020-02-26 14:08:00 Completed [facility] Moderna COVID-19 Vaccine Moderna COVID-19 Vaccine 2020-02-26 14:08:00 Completed [facility] FluAD Quad SD FluAD Quad SD Unknown Completed [facility] Moderna COVID-19 Vaccine Moderna COVID-19 Vaccine Unknown Completed [facility] Pneumovax (PPSV23) Pneumovax (PPSV23) Unknown Completed [facility] FLUZONE HIGH DOSE OVER 65 FLUZONE HIGH DOSE OVER 65 Unknown Completed [facility] FluAD Quad SD FluAD Quad SD Unknown Completed [facility] Moderna COVID-19 Vaccine Moderna COVID-19 Vaccine Unknown Completed [facility] Pneumovax (PPSV23) Pneumovax (PPSV23) Unknown Completed [facility] FLUZONE HIGH DOSE OVER 65 FLUZONE HIGH DOSE OVER 65 Unknown Completed [facility] FluAD Quad SD FluAD Quad SD Unknown Completed [facility] Moderna COVID-19 Vaccine Moderna COVID-19 Vaccine Unknown Completed [facility] Pneumovax (PPSV23) Pneumovax (PPSV23) Unknown Completed [facility] FLUZONE HIGH DOSE OVER 65 FLUZONE HIGH DOSE OVER 65 Unknown Completed [facility] FluAD Quad SD FluAD Quad SD Unknown Completed [facility] Moderna COVID-19 Vaccine Moderna COVID-19 Vaccine Unknown Completed [facility] Pneumovax (PPSV23) Pneumovax (PPSV23) Unknown Completed [facility] FLUZONE HIGH DOSE OVER 65 FLUZONE HIGH DOSE OVER 65 Unknown Completed [facility] FluAD Quad SD FluAD Quad SD Unknown Completed [facility] Moderna COVID-19 Vaccine Moderna COVID-19 Vaccine Unknown Completed [facility] Pneumovax (PPSV23) Pneumovax (PPSV23) Unknown Completed [facility] FLUZONE HIGH DOSE OVER 65 FLUZONE HIGH DOSE OVER 65 Unknown Completed [facility] Fluad (aIIV4) - SDS - 0.5mL Fluad (aIIV4) - SDS - 0.5mL Unknown Completed [facility] Moderna COVID-19 Vaccine Moderna COVID-19 Vaccine Unknown Completed [facility] Pneumovax (PPSV23) Pneumovax (PPSV23) Unknown Completed [facility] FLUZONE HIGH DOSE OVER 65 FLUZONE HIGH DOSE OVER 65 Unknown Completed [facility] Fluad (aIIV4) - SDS - 0.5mL Fluad (aIIV4) - SDS - 0.5mL Unknown Completed [facility] Moderna COVID-19 Vaccine Moderna COVID-19 Vaccine Unknown Completed [facility] Pneumovax (PPSV23) Pneumovax (PPSV23) Unknown Completed [facility] FLUZONE HIGH DOSE OVER 65 FLUZONE HIGH DOSE OVER 65 Unknown Completed [facility] Fluad (aIIV4) - SDS - 0.5mL Fluad (aIIV4) - SDS - 0.5mL Unknown Completed [facility] Moderna COVID-19 Vaccine Moderna COVID-19 Vaccine Unknown Completed [facility] Pneumovax (PPSV23) Pneumovax (PPSV23) Unknown Completed [facility] FLUZONE HIGH DOSE OVER 65 FLUZONE HIGH DOSE OVER 65 Unknown Completed [facility] Fluad (aIIV4) - SDS - 0.5mL Fluad (aIIV4) - SDS - 0.5mL Unknown Completed [facility] Moderna COVID-19 Vaccine Moderna COVID-19 Vaccine Unknown Completed [facility] Pneumovax (PPSV23) Pneumovax (PPSV23) Unknown Completed [facility] FLUZONE HIGH DOSE OVER 65 FLUZONE HIGH DOSE OVER 65 Unknown Completed [facility] Fluad (aIIV4) - SDS - 0.5mL Fluad (aIIV4) - SDS - 0.5mL Unknown Completed [facility] Moderna COVID-19 Vaccine Moderna COVID-19 Vaccine Unknown Completed [facility] Pneumovax (PPSV23) Pneumovax (PPSV23) Unknown Completed [facility] FLUZONE HIGH DOSE OVER 65 FLUZONE HIGH DOSE OVER 65 Unknown Completed [facility] Fluad (aIIV4) - SDS - 0.5mL Fluad (aIIV4) - SDS - 0.5mL Unknown Completed [facility] Moderna COVID-19 Vaccine Moderna COVID-19 Vaccine Unknown Completed [facility] Pneumovax (PPSV23) Pneumovax (PPSV23) Unknown Completed [facility] FLUZONE HIGH DOSE OVER 65 FLUZONE HIGH DOSE OVER 65 Unknown Completed [facility] Fluad (aIIV4) - SDS - 0.5mL Fluad (aIIV4) - SDS - 0.5mL Unknown Completed [facility] Moderna COVID-19 Vaccine Moderna COVID-19 Vaccine Unknown Completed [facility] Pneumovax (PPSV23) Pneumovax (PPSV23) Unknown Completed [facility] FLUZONE HIGH DOSE OVER 65 FLUZONE HIGH DOSE OVER 65 Unknown Completed [facility] Fluad (aIIV4) - SDS - 0.5mL Fluad (aIIV4) - SDS - 0.5mL Unknown Completed [facility] Moderna COVID-19 Vaccine Moderna COVID-19 Vaccine Unknown Completed [facility] Pneumovax (PPSV23) Pneumovax (PPSV23) Unknown Completed [facility] FLUZONE HIGH DOSE OVER 65 FLUZONE HIGH DOSE OVER 65 Unknown Completed [facility] Fluad (aIIV4) - SDS - 0.5mL Fluad (aIIV4) - SDS - 0.5mL Unknown Completed [facility] Moderna COVID-19 Vaccine Moderna COVID-19 Vaccine Unknown Completed [facility] Pneumovax (PPSV23) Pneumovax (PPSV23) Unknown Completed [facility] FLUZONE HIGH DOSE OVER 65 FLUZONE HIGH DOSE OVER 65 Unknown Completed [facility] Fluad (aIIV4) - SDS - 0.5mL Fluad (aIIV4) - SDS - 0.5mL Unknown Completed [facility] Moderna COVID-19 Vaccine Moderna COVID-19 Vaccine Unknown Completed [facility] Pneumovax (PPSV23) Pneumovax (PPSV23) Unknown Completed [facility] FLUZONE HIGH DOSE OVER 65 FLUZONE HIGH DOSE OVER 65 Unknown Completed [facility] Fluad (aIIV4) - SDS - 0.5mL Fluad (aIIV4) - SDS - 0.5mL Unknown Completed [facility] Moderna COVID-19 Vaccine Moderna COVID-19 Vaccine Unknown Completed [facility] Pneumovax (PPSV23) Pneumovax (PPSV23) Unknown Completed [facility] FLUZONE HIGH DOSE OVER 65 FLUZONE HIGH DOSE OVER 65 Unknown Completed [facility] Fluad (aIIV4) - SDS - 0.5mL Fluad (aIIV4) - SDS - 0.5mL Unknown Completed [facility] Moderna COVID-19 Vaccine Moderna COVID-19 Vaccine Unknown Completed [facility] Pneumovax (PPSV23) Pneumovax (PPSV23) Unknown Completed [facility] FLUZONE HIGH DOSE OVER 65 FLUZONE HIGH DOSE OVER 65 Unknown Completed [facility] Fluad (aIIV4) - SDS - 0.5mL Fluad (aIIV4) - SDS - 0.5mL Unknown Completed [facility] Moderna COVID-19 Vaccine Moderna COVID-19 Vaccine Unknown Completed [facility] Pneumovax (PPSV23) Pneumovax (PPSV23) Unknown Completed [facility] FLUZONE HIGH DOSE OVER 65 FLUZONE HIGH DOSE OVER 65 Unknown Completed [facility] Fluad (aIIV4) - SDS - 0.5mL Fluad (aIIV4) - SDS - 0.5mL Unknown Completed [facility] Moderna COVID-19 Vaccine Moderna COVID-19 Vaccine Unknown Completed [facility] Pneumovax (PPSV23) Pneumovax (PPSV23) Unknown Completed [facility] FLUZONE HIGH DOSE OVER 65 FLUZONE HIGH DOSE OVER 65 Unknown Completed [facility] Fluad (aIIV4) - SDS - 0.5mL Fluad (aIIV4) - SDS - 0.5mL Unknown [facility] Vaccine Unknown Completed [facility] Pneumovax (PPSV23) Pneumovax (PPSV23) Unknown Completed [facility] FLUZONE HIGH DOSE OVER 65 FLUZONE HIGH DOSE OVER 65 Unknown Completed [facility] Fluad (aIIV4) - SDS - 0.5mL Fluad (aIIV4) - SDS - 0.5mL Unknown Completed [facility] Moderna COVID-19 Vaccine Moderna COVID-19 Vaccine Unknown Completed [facility] Pneumovax (PPSV23) Pneumovax (PPSV23) Unknown Completed [facility] FLUZONE HIGH DOSE OVER 65 FLUZONE HIGH DOSE OVER 65 Unknown Completed [facility] Fluad (aIIV4) - SDS - 0.5mL Fluad (aIIV4) - SDS - 0.5mL Unknown Completed [facility] Moderna COVID-19 Vaccine Moderna COVID-19 Vaccine Unknown Completed [facility] Pneumovax (PPSV23) Pneumovax (PPSV23) Unknown Completed [facility] FLUZONE HIGH DOSE OVER 65 FLUZONE HIGH DOSE OVER 65 Unknown Completed [facility] Fluad (IIV) - SDS - 0.5mL Fluad (IIV) - SDS - 0.5mL Unknown Completed [facility] Vital Signs Vital Name Observation Time Observation Value Comments S ource height 2024-10-03 09:40:00 63 [in_i] Commo n [facility] weight 2024-10-03 09:40:00 207.0 [lb_av] Co mmon [facility] temperature 2024-10-03 09:40:00 98.2 [degF] Com mon [facility] bmi 2024-10-03 09:40:00 36.66 kg/m2 Comm on [facility] oximetry 2024-10-03 09:40:00 97 % Commo n [facility] respiratory rate 2024-10-03 09:40:00 16 /min [facility] blood pressure systolic 2024-10-03 09:40:00 132 mm[Hg[facility] diastolic 2024-10-03 09:40:00 78 mm[Hg] [facility] height 2024-07-31 15:00:00 63 [in_i] Commo n [facility] weight 2024-07-31 15:00:00 203.6 [lb_av] Co mmon [facility] temperature 2024-07-31 15:00:00 97.6 [degF] Com mon [facility] bmi 2024-07-31 15:00:00 36.06 kg/m2 Comm on [facility] oximetry 2024-07-31 15:00:00 98 % Commo n [facility] respiratory rate 2024-07-31 15:00:00 16 /min [facility] blood pressure systolic 2024-07-31 15:00:00 132 mm[Hg] [facility] blood pressure diastolic 2024-07-31 15:00:00 68 mm[Hg] [facility] height 2024-07-03 09:40:00 63 [in_i] Commo n [facility] weight 2024-07-03 09:40:00 209.0 [lb_av] Co mmon [facility] temperature 2024-07-03 09:40:00 97.6 [degF] Com mon [facility] bmi 2024-07-03 09:40:00 37.02 kg/m2 Comm on [facility] oximetry 2024-07-03 09:40:00 98 % Commo n [facility] respiratory rate 2024-07-03 09:40:00 15 /min [facility] blood pressure systolic 2024-07-03 09:40:00 124 mm[Hg] [facility] blood pressure diastolic 2024-07-03 09:40:00 68 mm[Hg] Common [facility] Body Weight 2024-05-07 00:00:00 209.4 [lb_av] [facility] BP Systolic 2024-05-07 00:00:00 131 mm[Hg] [facility] BMI (Body Mass Index) 2024-05-07 00:00:00 37.1 kg/m2 [facility] Height 2024-05-07 00:00:00 63 [in_i] [facility] BP Diastolic 2024-05-07 00:00:00 82 mm[Hg] [facility] height 2024-04-11 15:20:00 63 [in_i] Commo n [facility] weight 2024-04-11 15:20:00 205.2 [lb_av] Co [facility] temperature 2024-04-11 15:20:00 97.4 [degF] Com [facility] bmi 2024-04-11 15:20:00 36.35 kg/m2 Comm on [facility] oximetry 2024-04-11 15:20:00 97 % Commo n [facility] respiratory rate 2024-04-11 15:20:00 15 /min [facility] blood pressure systolic 2024-04-11 15:20:00 122 mm[Hg] Common [facility] blood pressure diastolic 2024-04-11 15:20:00 68 mm[Hg] [facility] height 2024-04-11 15:20:00 63 [in_i] Commo n [facility] weight 2024-04-11 15:20:00 205.2 [lb_av] Co [facility] temperature 2024-04-11 15:20:00 97.4 [degF] Com [facility] bmi 2024-04-11 15:20:00 36.35 kg/m2 Comm on [facility] oximetry 2024-04-11 15:20:00 97 % Commo n [facility] respiratory rate 2024-04-11 15:20:00 15 /min [facility] blood pressure systolic 2024-04-11 15:20:00 122 mm[Hg] Common [facility] blood pressure diastolic 2024-04-11 15:20:00 68 mm[Hg] [facility] height 2024-04-11 15:20:00 63 [in_i] Commo n [facility] weight 2024-04-11 15:20:00 205.2 [lb_av] Co mmon [facility] temperature 2024-04-11 15:20:00 97.4 [degF] Com [facility] bmi 2024-04-11 15:20:00 36.35 kg/m2 Comm on [facility] oximetry 2024-04-11 15:20:00 97 % Commo n [facility] respiratory rate 2024-04-11 15:20:00 15 /min [facility] blood pressure systolic 2024-04-11 15:20:00 122 mm[Hg] [facility] blood pressure diastolic 2024-04-11 15:20:00 68 mm[Hg] Common [facility] height 2024-02-08 13:20:00 63 [in_i] Commo n [facility] weight 2024-02-08 13:20:00 202 [lb_av] Comm on [facility] temperature 2024-02-08 13:20:00 97.2 [degF] Com mon [facility] bmi 2024-02-08 13:20:00 35.78 kg/m2 Comm on [facility] oximetry 2024-02-08 13:20:00 99 % Commo n [facility] respiratory rate 2024-02-08 13:20:00 16 /min [facility] blood pressure systolic 2024-02-08 13:20:00 118 mm[Hg] [facility] blood pressure diastolic 2024-02-08 13:20:00 62 mm[Hg] Common [facility] Height 2024-01-10 00:00:00 63 [in_i] [facility] Body Weight 2024-01-10 00:00:00 202.6 [lb_av] [facility] BP Systolic 2024-01-10 00:00:00 117 mm[Hg] [facility] BP Diastolic 2024-01-10 00:00:00 79 mm[Hg] [facility] BMI (Body Mass Index) 2024-01-10 00:00:00 35.9 kg/m2 [facility] height 2023-12-20 15:00:00 63 [in_i] Commo n [facility] weight 2023-12-20 15:00:00 200.8 [lb_av] Co mmon [facility] temperature 2023-12-20 15:00:00 97.8 [degF] Com mon [facility] bmi 2023-12-20 15:00:00 35.57 kg/m2 Comm on [facility] oximetry 2023-12-20 15:00:00 97 % Commo n [facility] respiratory rate 2023-12-20 15:00:00 16 /min [facility] blood pressure systolic 2023-12-20 15:00:00 131 mm[Hg] [facility] blood pressure diastolic 2023-12-20 15:00:00 60 mm[Hg] Common [facility] BMI (Body Mass Index) 2023-12-07 00:00:00 34.5 kg/m2 [facility] Body Weight 2023-12-07 00:00:00 195 [lb_av] [facility] Height 2023-12-07 00:00:00 63 [in_i] [facility] BP Systolic 2023-12-07 00:00:00 147 mm[Hg] [facility] BP Diastolic 2023-12-07 00:00:00 75 mm[Hg] [facility] Body Weight 2023-11-17 00:00:00 195 [lb_av] [facility] Height 2023-11-17 00:00:00 63 [in_i] [facility] BP Diastolic 2023-11-17 00:00:00 67 mm[Hg] [facility] BP Systolic 2023-11-17 00:00:00 114 mm[Hg] [facility] BMI (Body Mass Index) 2023-11-17 00:00:00 34.5 kg/m2 [facility] BP Systolic 2023-11-10 00:00:00 140 mm[Hg] [facility] BMI (Body Mass Index) 2023-11-10 00:00:00 [facility]23-[facility]-10 00:00:00 63 [in_i] [facility] Body Weight 2023-11-10 00:00:00 195 [lb_av] [facility] BP Diastolic 2023-11-10 00:00:00 69 mm[Hg] [facility] height 2023-10-24 10:20:00 63 [in_i] Commo n [facility] weight 2023-10-24 10:20:00 195.4 [lb_av] Co mmon [facility] temperature 2023-10-24 10:20:00 97.3 [degF] Com mon [facility] bmi 2023-10-24 10:20:00 34.61 kg/m2 Comm on [facility] oximetry 2023-10-24 10:20:00 98 % Commo n [facility] respiratory rate 2023-10-24 10:20:00 16 /min Common [facility] blood pressure systolic 2023-10-24 10:20:00 135 mm[Hg] Common [facility] blood pressure diastolic 2023-10-24 10:20:00 60 mm[Hg] Common [facility] Body Weight 2023-10-11 00:00:00 195 [lb_av] [facility] [...] height 2023-07-20 10:20:00 63 [in_i] Commo n [facility] weight 2023-07-20 10:20:00 195.2 [lb_av] Co mmon [facility] temperature 2023-07-20 10:20:00 97.4 [degF] Com mon [facility] bmi 2023-07-20 10:20:00 34.57 kg/m2 Comm on [facility] oximetry 2023-07-20 10:20:00 97 % Commo n [facility] respiratory rate 2023-07-20 10:20:00 16 /min [facility] blood pressure systolic 2023-07-20 10:20:00 132 mm[Hg] [facility] blood pressure diastolic 2023-07-20 10:20:00 76 mm[Hg] [facility] height 2023-07-05 15:40:00 63 [in_i] Commo n [facility] weight 2023-07-05 15:40:00 195.2 [lb_av] Co [facility] temperature 2023-07-05 15:40:00 97.3 [degF] Com [facility] bmi 2023-07-05 15:40:00 34.57 kg/m2 Comm on [facility] oximetry 2023-07-05 15:40:00 95 % Commo n [facility] respiratory rate 2023-07-05 15:40:00 16 /min [facility] blood pressure systolic 2023-07-05 15:40:00 133 mm[Hg] Common [facility] blood pressure diastolic 2023-07-05 15:40:00 55 mm[Hg] [facility] height 2023-05-08 10:40:00 63 [in_i] Commo n [facility] weight 2023-05-08 10:40:00 195.4 [lb_av] Co [facility] temperature 2023-05-08 10:40:00 98.6 [degF] Com [facility] bmi 2023-05-08 10:40:00 34.61 kg/m2 Comm on [facility] oximetry 2023-05-08 10:40:00 99 % Commo n [facility] respiratory rate 2023-05-08 10:40:00 16 /min Common [facility] blood pressure systolic 2023-05-08 10:40:00 122 mm[Hg] Common [facility] blood pressure diastolic 2023-05-08 10:40:00 76 mm[Hg] [facility] height 2023-04-17 11:00:00 63 [in_i] Commo n [facility] weight 2023-04-17 11:00:00 196.6 [lb_av] Co mmon [facility] temperature 2023-04-17 11:00:00 96.4 [degF] Com [facility] bmi 2023-04-17 11:00:00 34.82 kg/m2 Comm on [facility] oximetry 2023-04-17 11:00:00 98 % Commo n [facility] respiratory rate 2023-04-17 11:00:00 15 /min [facility] blood pressure systolic 2023-04-17 11:00:00 127 mm[Hg] [facility] blood pressure diastolic 2023-04-17 11:00:00 66 mm[Hg] [facility] height 2023-04-17 11:00:00 63 [in_i] Commo n [facility] weight 2023-04-17 11:00:00 196.6 [lb_av] Co mmon [facility] temperature 2023-04-17 11:00:00 96.4 [degF] Com [facility] bmi 2023-04-17 11:00:00 34.82 kg/m2 Comm on [facility] oximetry 2023-04-17 11:00:00 98 % Commo n [facility] respiratory rate 2023-04-17 11:00:00 15 /min [facility] blood pressure systolic 2023-04-17 11:00:00 127 mm[Hg] [facility] blood pressure diastolic 2023-04-17 11:00:00 66 mm[Hg] Common [facility] height 2022-12-26 09:00:00 63 [in_i] Commo n [facility] weight 2022-12-26 09:00:00 193.8 [lb_av] Co mmon [facility] temperature 2022-12-26 09:00:00 98.6 [degF] Com mon [facility] bmi 2022-12-26 09:00:00 34.33 kg/m2 Comm on [facility] oximetry 2022-12-26 09:00:00 97 % Commo n [facility] respiratory rate 2022-12-26 09:00:00 16 /min [facility] blood pressure systolic 2022-12-26 09:00:00 132 mm[Hg] [facility] blood pressure diastolic 2022-12-26 09:00:00 68 mm[Hg] Common [facility] height 2022-12-07 13:00:00 63 [in_i] Commo n [facility] weight 2022-12-07 13:00:00 192.2 [lb_av] Co mmon [facility] temperature 2022-12-07 13:00:00 97.2 [degF] Com mon [facility] bmi 2022-12-07 13:00:00 34.04 kg/m2 Comm on [facility] oximetry 2022-12-07 13:00:00 95 % Commo n [facility] respiratory rate 2022-12-07 13:00:00 16 /min Common [facility] blood pressure systolic 2022-12-07 13:00:00 138 mm[Hg] [facility] blood pressure diastolic 2022-12-07 13:00:00 72 mm[Hg] [facility] height 2022-12-07 13:00:00 63 [in_i] Commo n [facility] weight 2022-12-07 13:00:00 192.2 [lb_av] Co mmon [facility] temperature 2022-12-07 13:00:00 97.2 [degF] Com [facility] bmi 2022-12-07 13:00:00 34.04 kg/m2 Comm on [facility] oximetry 2022-12-07 13:00:00 95 % Commo n [facility] respiratory rate 2022-12-07 13:00:00 16 /min Common [facility] blood pressure systolic 2022-12-07 13:00:00 138 mm[Hg] Common [facility] blood pressure diastolic 2022-12-07 13:00:00 72 mm[Hg] Common [facility] height 2022-07-20 10:00:00 63 [in_i] Commo n [facility] weight 2022-07-20 10:00:00 198 [lb_av] Comm on [facility] temperature 2022-07-20 10:00:00 97.2 [degF] Com [facility] bmi 2022-07-20 10:00:00 35.07 kg/m2 Comm on [facility] blood pressure systolic 2022-07-20 10:00:00 122 mm[Hg] [facility] blood pressure diastolic 2022-07-20 10:00:00 70 mm[Hg] Common [facility] height 2022-06-10 08:00:00 63 [in_i] Commo n [facility] weight 2022-06-10 08:00:00 197.8 [lb_av] Co mmon [facility] temperature 2022-06-10 08:00:00 96.8 [degF] Com [facility] bmi 2022-06-10 08:00:00 35.03 kg/m2 Comm on [facility] oximetry 2022-06-10 08:00:00 95 % Commo n [facility] respiratory rate 2022-06-10 08:00:00 15 /min Common [facility] blood pressure systolic 2022-06-10 08:00:00 127 mm[Hg] [facility] blood pressure diastolic 2022-06-10 08:00:00 53 mm[Hg] [facility] height 2021-12-08 13:20:00 63 [in_i] Commo n [facility] weight 2021-12-08 13:20:00 184.2 [lb_av] Co [facility] temperature 2021-12-08 13:20:00 98.8 [degF] Com [facility] bmi 2021-12-08 13:20:00 32.63 kg/m2 Comm on [facility] oximetry 2021-12-08 13:20:00 98 % Commo n [facility] respiratory rate 2021-12-08 13:20:00 17 /min [facility] blood pressure systolic 2021-12-08 13:20:00 114 mm[Hg] [facility] blood pressure diastolic 2021-12-08 13:20:00 69 mm[Hg] Common [facility] height 2021-12-08 13:00:00 63 [in_i] Commo n [facility] weight 2021-12-08 13:00:00 184.2 [lb_av] Co [facility] temperature 2021-12-08 13:00:00 98.8 [degF] Com [facility] bmi 2021-12-08 13:00:00 32.63 kg/m2 Comm on [facility] oximetry 2021-12-08 13:00:00 98 % Commo n [facility] respiratory rate 2021-12-08 13:00:00 17 /min Common [facility] blood pressure systolic 2021-12-08 13:00:00 114 mm[Hg] [facility] blood pressure diastolic 2021-12-08 13:00:00 69 mm[Hg] [facility] height 2021-08-19 14:00:00 63 [in_i] Commo n [facility] weight 2021-08-19 14:00:00 183 [lb_av] Comm on [facility] temperature 2021-08-19 14:00:00 97.8 [degF] Com mon [facility] bmi 2021-08-19 14:00:00 32.41 kg/m2 Comm on [facility] oximetry 2021-08-19 14:00:00 96 % Commo n [facility] respiratory rate 2021-08-19 14:00:00 16 /min [facility] blood pressure systolic 2021-08-19 14:00:00 122 mm[Hg] [facility] blood pressure diastolic 2021-08-19 14:00:00 53 mm[Hg] [facility] blood pressure systolic 2021-05-18 14:00:00 123 mm[Hg] [facility] blood pressure diastolic 2021-05-18 14:00:00 51 mm[Hg] [facility] height 2021-05-18 14:00:00 64 [in_i] Commo n [facility] weight 2021-05-18 14:00:00 187 [lb_av] Comm on [facility] temperature 2021-05-18 14:00:00 97.0 [degF] Com mon [facility] bmi 2021-05-18 14:00:00 32.09 kg/m2 Comm on [facility] oximetry 2021-05-18 14:00:00 97 % Commo n [facility] respiratory rate 2021-05-18 14:00:00 16 /min [facility] height 2021-02-16 14:00:00 64 [in_i] Commo n [facility] weight 2021-02-16 14:00:00 198.4 [lb_av] Co mmon [facility] temperature 2021-02-16 14:00:00 97.9 [degF] Com mon [facility] bmi 2021-02-16 14:00:00 34.05 kg/m2 Comm on [facility] oximetry 2021-02-16 14:00:00 98 % Commo n [facility] respiratory rate 2021-02-16 14:00:00 16 /min [facility] blood pressure systolic 2021-02-16 14:00:00 128 mm[Hg] [facility] blood pressure diastolic 2021-02-16 14:00:00 72 mm[Hg] [facility] Procedures Procedure Date / Time Performed Performing Clinician Source US, kidney 2024-01-10 00:00:00 [facility] Neuro[facility]ulation/modulation 2023-12-21 00:00:00 [facility] Percutaneous Sacral Nerve Evaluation 2023-11-10 00:00:00 [facility] US, kidney 2023-10-11 00:00:00 [facility] Cystourethroscopy 2023-09-19 00:00:00 [facility] US, kidney 2023-08-02 00:00:00 [facility] Procedure on Gallbladder 2021-02-13 00:00:00 [facility] Hysterectomy 2002-02-13 00:00:00 [facility] Section 1978-02-13 00:00:00 [facility] Tonsillectomy 1949-02-13 00:00:00 [facility] Cholecystectomy [facility] En[facility] Start Date/Time End Date/Time Encounter Type Admission Type Attending Clinicians Care Facility Care Department Encounter ID Source 2024-03-07 10:56:[address] [facility] [id number] [facility] 2024-02-06 08:01:00 Outpatient WhitleyYesenia blanco [facility]LML[facility] ST[facility] [id number] [facility] 2024-02-02 14:20:00 Outpatient Yesenia Galloway [facility] ST[facility] [id number] [facility] 2023-10-17 13:39:00 Outpatient Yesenia Galloway [facility] ST[facility] [id number] [facility] 2022-12-06 13:34:00 Outpatient Yesenia Galloway [facility] ST[facility] [id number] [facility] 2022-07-20 15:21:01 Outpatient Yesenia Galloway [facility] ST[facility] [id number] [facility] 2021-12-07 08:37:02 Outpatient Yesenia Galloway [facility] ST[facility] [id number] [facility] 2021-08-17 11:42:01 Outpatient Yesenia Galloway [facility] [id number] [facility] 2021-05-14 09:26:02 Outpatient Yesenia Galloway [facility] [id number] [facility] 2021-03-10 14:30:45 Outpatient Yesenia Galloway [facility] ST[facility] [id number] [facility] 2024-10-03 00:00:00 2024-10-03 00:00:00 OFFICE VISIT ESTAB PT LEVEL 4 [facility] ST[facility]C [id number] [facility] 2024-07-31 00:00:00 2024-07-31 00:00:00 OFFICE VISIT ESTAB PT LEVEL 3 [facility]C ST[facility]C [id number] [facility] 2024-07-03 00:00:00 2024-07-03 00:00:00 OFFICE VISIT ESTAB PT LEVEL 4 STLMLC STL[facility]C [id number] [facility] 2024-05-30 00:00:00 2024-05-30 00:00:00 (TEL) STLMLC STLMLC [id number] [facility] 2024-05-07 00:00:00 2024-05-07 00:00:00 Samanta London MD: [address], [place] [address] , Ph. [facility] GC_GCBZW_Ia herman Jc* [id number] [facility] 2024-04-11 00:00:00 2024-04-11 00:00:00 OFFICE VISIT ESTAB PT LEVEL 4 STLMLC STLMLC [id number] [facility] 2024-04-11 00:00:00 2024-04-11 00:00:00 SUB ANNUAL [facility] WELLNESS VISIT STLMLC STLMLC [id number] [facility] 2024-03-07 00:00:00 2024-03-07 00:00:00 (TEL) STLMLC STLMLC [id number] [facility] 2024-02-08 00:00:00 2024-02-08 00:00:00 (HOSP F/U) Hospital Follow Up STLMLC STLMLC [id number] [facility] 2024-02-02 00:00:00 2024-02-02 00:00:00 (TEL) STLMLC STLMLC [id number] [facility] 2024-01-10 00:00:00 2024-01-10 00:00:00 TELLO Liu: [address], [place] [address] , Ph. [facility] GC_GCBZW_[facility]* [id number] [facility] 2023-12-20 00:00:00 2023-12-20 00:00:00 OFFICE VISIT ESTAB PT LEVEL 4 STLMLC STLMLC [id number] [facility] 2023-12-07 00:00:00 2023-12-07 00:00:00 TELLO Liu: [address], [place] [address] , Ph. [facility] - GC_GCBZW_[facility]* [id number] [facility] 2023-11-17 00:00:00 2023-11-17 00:00:00 TELLO Liu: [address], [place] [address] , Ph. [facility] - GC_GCBZW_[facility]* [id number] [facility] 2023-11-10 00:00:00 2023-11-10 00:00:00 TELLO Liu: [address], [place] [address] , Ph. [facility] - [facility]BZ[facility]* [id number] [facility] 2023-10-24 00:00:00 2023-10-24 00:00:00 OFFICE VISIT ESTAB PT LEVEL 4 STLMLC STLMLC [id number] [facility] 2023-10-20 00:00:00 2023-10-20 00:00:00 (TEL) STLMLC STLMLC [id number] [facility] 2023-10-17 00:00:00 2023-10-17 00:00:00 (TEL) STLMLC STLMLC [id number] [facility] 2023-10-11 00:00:00 2023-10-11 00:00:00 Samanta London MD: [address], [place] [address] , Ph. [facility] - [facility]* [id number] [facility] 2023-09-28 00:00:00 2023-09-28 00:00:00 TELLO Liu: [address], [place] [address] , Ph. [facility] - [facility]* [id number] [facility] 2023-09-19 00:00:00 2023-09-19 00:00:00 Samanta London MD: [address], [place] [address] , Ph. [facility] - GC[facility]BZ[facility]* [id number] [facility] 2023-09-05 00:00:00 2023-09-05 00:00:00 TELLO Liu: [address], [place] [address] , Ph. [facility] - GC[facility]* [id number] [facility] 2023-08-24 00:00:00 2023-08-24 00:00:00 TELLO Liu: [address], [place] [address] , Ph. [facility] - [facility]* [id number] [facility] 2023-08-02 00:00:00 2023-08-02 00:00:00 Samanta London MD: [address], [place] [address] , Ph. [facility] - [facility]* [id number] [facility] 2023-07-20 00:00:00 2023-07-20 00:00:00 OFFICE VISIT ESTAB PT LEVEL 3 STLMLC STLMLC [id number] [facility] 2023-07-05 00:00:00 2023-07-05 00:00:00 OFFICE VISIT ESTAB PT LEVEL 3 STLMLC STLMLC [id number] [facility] 2023-07-04 00:00:00 2023-07-04 00:00:00 (TEL) STLMLC STLMLC [id number] [facility] 2023-05-11 00:00:00 2023-05-11 00:00:00 (TEL) STLMLC STLMLC [id number] [facility] 2023-05-08 00:00:00 2023-05-08 00:00:00 OFFICE VISIT ESTAB PT LEVEL 2 STLMLC STLMLC [id number] [facility] 2023-04-30 00:00:00 2023-04-30 00:00:00 (TEL) STLMLC STLMLC [id number] [facility] 2023-04-27 00:00:00 2023-04-27 00:00:00 (TEL) STLMLC STLMLC [id number] [facility] 2023-04-26 00:00:00 2023-04-26 00:00:00 (TEL) STLMLC STLMLC [id number] [facility] 2023-04-17 00:00:00 2023-04-17 00:00:00 OFFICE VISIT ESTAB PT LEVEL 3 STLMLC STLMLC [id number] [facility] 2023-01-02 00:00:00 2023-01-02 00:00:00 (TEL) STLMLC STLMLC [id number] [facility] 2022-12-26 00:00:00 2022-12-26 00:00:00 OFFICE VISIT ESTAB PT LEVEL 2 STLMLC STLMLC [id number] [facility] 2022-12-19 00:00:00 2022-12-19 00:00:00 (TEL) STLMLC STLMLC [id number] [facility] 2022-12-07 00:00:00 2022-12-07 00:00:00 SUB ANNUAL [facility] WELLNESS VISIT STLMLC STLMLC [id number] [facility] 2022-12-07 00:00:00 2022-12-07 00:00:00 OFFICE VISIT ESTAB PT LEVEL 4 STLMLC STLMLC [id number] [facility] 2022-11-16 00:00:00 2022-11-16 00:00:00 (TEL) STLMLC STLMLC [id number] [facility] 2022-11-03 00:00:00 2022-11-03 00:00:00 (TEL) STLMLC STLMLC [id number] [facility] 2022-10-27 00:00:00 2022-10-27 00:00:00 (TEL) STLMLC STLMLC [id number] [facility] 2022-07-20 00:00:00 2022-07-20 00:00:00 OFFICE VISIT NEW PT LEVEL 3 STLMLC STLMLC [id number] [facility] 2022-07-12 00:00:00 2022-07-12 00:00:00 (TEL) STLMLC STLMLC [id number] [facility] 2022-06-22 00:00:00 2022-06-22 00:00:00 (TEL) STLMLC STLMLC [id number] [facility] 2022-06-10 00:00:00 2022-06-10 00:00:00 OFFICE VISIT ESTAB PT LEVEL 4 STLMLC STLMLC [id number] [facility] 2022-06-03 00:00:00 2022-06-03 00:00:00 (TEL) STLMLC STLMLC [id number] [facility] 2021-12-08 00:00:00 2021-12-08 00:00:00 OFFICE VISIT ESTAB PT LEVEL 4 STLMLC STLMLC [id number] [facility] 2021-12-08 00:00:00 2021-12-08 00:00:00 SUB ANNUAL [facility] WELLNESS VISIT STLMLC STLMLC [id number] [facility] 2021-11-04 00:00:00 2021-11-04 00:00:00 [facility]TEL) [facility] [id number] [facility] 2021-08-19 00:00:00 2021-08-19 00:00:00 OFFICE VISIT [facility]AB [facility] [id number] [facility] 2021-05-18 00:00:00 2021-05-18 00:00:00 OFFICE [facility]IT [facility]AB [facility] [id number] [facility] 2021-02-16 00:00:00 2021-02-16 00:00:00 OFFICE VISIT ESTAB [facility] [id number] [facility] Results Test Description Test Time Test Comments Results Result Co mments Source FREE T4 (THYROXINE)2024-05-24 00:00:00* Test Item Value Reference Range Interpretation Comme nts NUCLEATED RBCS (test code = 17969-8) 0.0 /100 WBC'S See_Comment [Automated message] The system which generated this result transmitted reference range: 0.0 /100 WBC'S. The reference range was not used to interpret this result as normal/abnormal. ABSOLUTE EOSINOPHILS (test code = 06210-5) 0.14 K/UL See_Comment [Automated message] The system which generated this result transmitted reference range: 0.00-0.50 K/UL. The reference range was not used to interpret this result as normal/abnormal. ABSOLUTE LYMPHOCYTES (test code = 77335-4) 3.05 K/UL See_Comment [Automated message] The system which generated this result transmitted reference range: 1.00-4.00 K/UL. The reference range was not used to interpret this result as normal/abnormal. ABSOLUTE MONOCYTES (test code = 90970-7) 0.54 K/UL See_Comment [Automated message] The system which generated this result transmitted reference range: 0.20-1.00 K/UL. The reference range was not used to interpret this result as normal/abnormal. ABSOLUTE NEUTROPHILS (test code = 25713-3) 3.23 K/UL See_Comment [Automated message] The system which generated this result transmitted reference range: 1.50-7.50 K/UL. The reference range was not used to interpret this result as normal/abnormal. BASOPHILS (test code = 81398-6) 1.3 % EOSINOPHILS (test code = 18147-9) 2.0 % HEMATOCRIT (test code = 54390-5) 45.2 % See_Comment H [Automated messa ge] The system which generated this result transmitted reference range: 34.0-45.0 %. The reference range was not used to interpret this result as normal/abnormal. HEMOGLOBIN (test code = 718-7) 15.3 G/DL See_Comment [Automated messa ge] The system which generated this result transmitted reference range: 11.5-15.5 G/DL. The reference range was not used to interpret this result as normal/abnormal. LYMPHOCYTES (test code = 55093-9) 43.1 % MCH (test code = 17747-4) 32.5 PG See_Comment [Automated messa ge] The system which generated this result transmitted reference range: 25.0-33.0 PG. The reference range was not used to interpret this result as normal/abnormal. MCHC (test code = 73697-4) 33.8 G/DL See_Comment [Automated messa ge] The system which generated this result transmitted reference range: 31.0-36.0 G/DL. The reference range was not used to interpret this result as normal/abnormal. MCV (test code = 83121-5) 96.0 fL See_Comment [Automated messa ge] The system which generated this result transmitted reference range: 80.0-99.0 fL. The reference range was not used to interpret this result as normal/abnormal. MONOCYTES (test code = 75857-0) 7.6 % NEUTROPHILS (test code = 12541-7) 45.7 % PLATELET COUNT (test code = 82339-5) 266 K/UL See_Comment [Automated messa ge] The system which generated this result transmitted reference range: 130-400 K/UL. The reference range was not used to interpret this result as normal/abnormal. RBC (test code = 40604-3) 4.71 M/UL See_Comment [Automated messa ge] The system which generated this result transmitted reference range: 3.80-5.40 M/UL. The reference range was not used to interpret this result as normal/abnormal. RDW (test code = 49388-5) 13.2 % See_Comment [Automated [employer] ge] The system which generated this result transmitted reference range: 11.5-15.0 %. The reference range was not used to interpret this result as normal/abnormal. WBC (test code = 63527-5) 7.1 K/UL See_Comment [Automated [employer] ge] The system which generated this result transmitted reference range: 3.5-11.0 K/UL. The reference range was not used to interpret this result as normal/abnormal. TSH REFLEX TO FREE T4 (test code = 50600-3) 4.870 UIU/ML See_Comment H [Automated message] The system which generated this result transmitted reference range: 0.400-4.100 UIU/ML. The reference range was not used to interpret this result as normal/abnormal. CALC LDL CHOL (test code = 22078-4) 140 MG/DL See_Comment H [Automated [employer]] The system which generated this result transmitted reference range: <100 MG/DL. The reference range was not used to interpret this result as normal/abnormal. CHOLESTEROL (test code = 2093-3) 219 MG/DL See_Comment H [Automated [employer] ge] The system which generated this result transmitted reference range: <200 MG/DL. The reference range was not used to interpret this result as normal/abnormal. HDL CHOLESTEROL (test code = 2085-9) 49 MG/DL See_Comment [Automated [employer] ge] The system which generated this result transmitted reference range: >39 MG/DL. The reference range was not used to interpret this result as normal/abnormal. RISK RATIO LDL/HDL (test code = 79624-4) 2.86 RATIO See_Comment [Automated message] The system which generated this result transmitted reference range: <3.22 RATIO. The reference range was not used to interpret this result as normal/abnormal. TRIGLYCERIDES (test code = 2571-8) 161 MG/DL See_Comment H [Automated [employer] ge] The system which generated this result transmitted reference range: <150 MG/DL. The reference range was not used to interpret this result as normal/abnormal. ALBUMIN (test code = 1751-7) 4.4 G/DL See_Comment [Automated [employer]] The system which generated this result transmitted reference range: 3.5-5.2 G/DL. The reference range was not used to interpret this result as normal/abnormal. ALKALINE PHOSPHATASE (test code = 6768-6) 132 U/L See_Comment [Automated message] The system which generated this result transmitted reference range: 40-142 U/L. The reference range was not used to interpret this result as normal/abnormal. BILIRUBIN, TOTAL (test code = 1975-2) 0.3 MG/DL See_Comment [Automated messa ge] The system which generated this result transmitted reference range: <=1.2 MG/DL. The reference range was not used to interpret this result as normal/abnormal. BUN (test code = 3094-0) 21 MG/DL See_Comment [Automated messa ge] The system which generated this result transmitted reference range: 8-23 MG/DL. The reference range was not used to interpret this result as normal/abnormal. CALCIUM (test code = 06359-3) 9.9 MG/DL See_Comment [Automated messa ge] The system which generated this result transmitted reference range: 8.5-10.5 MG/DL. The reference range was not used to interpret this result as normal/abnormal. CALC A/G RATIO (test code = 1759-0) 1.6 RATIO See_Comment [Automated messa ge] The system which generated this result transmitted reference range: 1.0-2.6 RATIO. The reference range was not used to interpret this result as normal/abnormal. CALC BUN/CREAT (test code = 3097-3) 18 RATIO See_Comment [Automated messa ge] The system which generated this result transmitted reference range: 6-28 RATIO. The reference range was not used to interpret this result as normal/abnormal. CALC GLOBULIN (test code = 75197-8) 2.8 G/DL See_Comment [Automated messa ge] The system which generated this result transmitted reference range: 1.9-3.7 G/DL. The reference range was not used to interpret this result as normal/abnormal. CARBON DIOXIDE (test code = 1963-8) 23 MEQ/L See_Comment [Automated messa ge] The system which generated this result transmitted reference range: 19-31 MEQ/L. The reference range was not used to interpret this result as normal/abnormal. CHLORIDE (test code = 2075-0) 106 MEQ/L See_Comment [Automated messa ge] The system which generated this result transmitted reference range: 95-107 MEQ/L. The reference range was not used to interpret this result as normal/abnormal. CREATININE (test code = 2160-0) 1.18 MG/DL See_Comment [Automated messa ge] The system which generated this result transmitted reference range: 0.60-1.30 MG/DL. The reference range was not used to interpret this result as normal/abnormal. eGFR (2020 CKD-EPI) (test code = 92434-6) 46 ML/MIN/1.73 See_Comment L [Automated message] The system which generated this result transmitted reference range: >60 ML/MIN/1.73. The reference range was not used to interpret this result as normal/abnormal. GLUCOSE (test code = 1558-6) 115 MG/DL See_Comment H [Automated messa ge] The system which generated this result transmitted reference range: 70-99 MG/DL. The reference range was not used to interpret this result as normal/abnormal. POTASSIUM (test code = 2823-3) 4.8 MEQ/L See_Comment [Automated messa ge] The system which generated this result transmitted reference range: 3.5-5.4 MEQ/L. The reference range was not used to interpret this result as normal/abnormal. PROTEIN, TOTAL (test code = 2885-2) 7.2 G/DL See_Comment [Automated messa ge] The system which generated this result transmitted reference range: 6.1-8.3 G/DL. The reference range was not used to interpret this result as normal/abnormal. AST (test code = 1920-8) 25 U/L See_Comment [Automated Algotochipa ge] The system which generated this result transmitted reference range: 9-40 U/L. The reference range was not used to interpret this result as normal/abnormal. ALT (test code = 1742-6) 26 U/L See_Comment [Automated messa ge] The system which generated this result transmitted reference range: 5-40 U/L. The reference range was not used to interpret this result as normal/abnormal. SODIUM (test code = 2951-2) 144 MEQ/L See_Comment [Automated messa ge] The system which generated this result transmitted reference range: 133-146 MEQ/L. The reference range was not used to interpret this result as normal/abnormal. FREE T4 (THYROXINE) (test code = 3024-7) 1.16 NG/DL See_Comment [Automated message] The system which generated this result transmitted reference range: 0.80-1.90 NG/DL. The reference range was not used to interpret this result as normal/abnormal. CULTURE, [id number] 00:00:00* Test Item Value Reference Range Interpretation Comme nts CULTURE, URINE (test code = 630-4) SPECIMEN NUMBER: [id number] A Bacteria identified in Urine by [id number] 00:00:00* Test Item Value Reference Range Interpretation Comme nts culture, urine (test code = culture, urine) SEE BELOW no growth A [facility] W Reflex Culture panel - [id number] 00:00:00* Test Item Value Reference Range Interpretation [...] code = WBC, urine) 21-50 0-5 H [facility], [id number] 08:14:00* Test Item Value Reference Range Interpretation Comme nts Leukocytes (test code = Leukocytes) 1+ Nitrite (test code = Nitrite) negative Urobilinogen (test code = Urobilinogen) Normal Protein (test code = Protein) Trace pH (test code = pH) 6.0 Blood (test code = Blood) Negative Specific [place] (test code = Specific [place]) 1.015 Ketone (test code = Ketone) Negative Bilirubin (test code = Bilirubin) Negative Glucose (test code = Glucose) Negative Appearance (test code = Appearance) Clear Color (test code = Color) Yellow [facility] macro (dipstick) panel - [id number] 09:32:00* Test Item Value Reference Range Interpretation Comme nts Leukocytes (test code = Leukocytes) Negative Nitrite (test code = Nitrite) negative Urobilinogen (test code = Urobilinogen) 0.2 Protein (test code = Protein) Negative pH (test code = pH) 6.0 Blood (test code = Blood) Negative Specific [place] (test code = Specific [place]) 1.010 Ketone (test code = Ketone) Negative Bilirubin (test code = Bilirubin) Negative Glucose (test code = Glucose) Negative Appearance (test code = Appearance) Clear Color (test code = Color) Yellow [facility], [id number] 09:32:00* Test Item Value Reference Range Interpretation Comme nts Leukocytes (test code = Leukocytes) Negative Nitrite (test code = Nitrite) negative Urobilinogen (test code = Urobilinogen) 0.2 Protein (test code = Protein) Negative pH (test code = pH) 6.0 Blood (test code = Blood) Negative Specific [place] (test code = Specific [place]) 1.010 Ketone (test code = Ketone) Negative Bilirubin (test code = Bilirubin) Negative Glucose (test code = Glucose) Negative Appearance (test code = Appearance) Clear Color (test code = Color) Yellow [facility] Medical[facility]ULT[facility], [id number] 00:00:00* Test Item Value Reference Range Interpretation Comme nts CULTURE, URINE (test code = 630-4) SPECIMEN NUMBER: [id number] A CULTURE, [id number] 00:00:00* Test Item Value Reference Range Interpretation Comme nts CULTURE, URINE (test code = 630-4) SPECIMEN NUMBER: [id number] TSH REFLEX TO FREE [id number] 00:00:00* Test Item Value Reference Range Interpretation Comme nts TSH REFLEX TO FREE T4 (test code = 19580-5) 1.800 UIU/ML See_Comment [Automated Algotochipa ge] The system which generated this result transmitted reference range: 0.400-4.100 UIU/ML. The reference range was not used to interpret this result as normal/abnormal.
[2024-11-21 11:27] LABS: Absolute Lymphocytes (CBC) 2.4 K/uL (0.7-4.9); Hematocrit 44.2 % (36.0-45.0); Hemoglobin 14.8 g/dL (12.0-15.0); MCH 31.2 pg (27.0-35.0); MCHC 33.6 g/dL (32.0-36.0); MCV 93.0 fL (80-100); MPV 10.8 fL (7.6-11.3); Nucleated RBC Absolute Count 0.0 (0-0); Nucleated Red Blood Cells % 0.1 % (0-0); RBC Red Blood Cell Count 4.75 M/uL (3.86-4.86); White Blood Count 11.20 thou/uL (4.3-10.9)
[2024-11-21 11:38] LABS: ALT/SGPT 32.0 U/L (13-56); AST/SGOT 18.0 U/L (15-37); Albumin 3.4 g/dL (3.4-5.0); Albumin/Globulin Ratio 0.8 (1.1-1.8); Alkaline Phosphatase 130.0 U/L (45-117); Anion Gap 11.0 mEq/L (5.0-15.0); BUN Blood Urea Nitrogen 20.0 mg/dL (7-18); Globulin 4.4 g/dL (2.3-3.5); Glucose Level 154.0 mg/dL (74-106); Lipase 56.0 U/L (13-75); Potassium 4.0 mEq/L (3.5-5.1)
[2024-11-21] MEDS ORDERED: KETOROLAC 30 MG/ML INJ ONE (11:48)
[2024-11-21] MEDS ORDERED: ONDANSETRON 4 MG/2 ML VIAL ONE (11:48)
--- NOTE | 2024-11-21 12:31 | RAD REPORT ---
EXAMINATION: CT ABDOMEN AND PELVIS WITH CONTRAST CLINICAL INDICATION: ABD PAIN TECHNIQUE: CT abdomen and pelvis was performed, after the administration of IV contrast, [facility]. Axial, sagittal and coronal reconstructions were obtained. One or more of the following dose reduction techniques were used: Automated exposure control, adjustment of the mA and k V according to patient size, and iterative reconstruction. Unless otherwise specified, incidental findings do not require dedicated imaging follow-up. COMPARISON: 01/31/2024 FINDINGS: LOWER CHEST: The visualized lung bases are clear. LIVER: Mild fatty liver is present. No focal lesion or biliary dilatation is seen. Cholecystectomy clips. SPLEEN: Normal size. No focal lesion. PANCREAS: No mass, ductal dilation, or barby-pancreatic fluid. ADRENALS: Normal; no mass. KIDNEYS: Normal size and contour. No hydronephrosis. GASTROINTESTINAL TRACT: No evidence of free air, significant intra-abdominal free fluid, bowel obstru ction or abscess. There is significant diverticulosis present throughout the sigmoid colon with mild to moderate surrounding inflammation. This is most compatible with moderate acute diverticulitis . There is no evidence of peridiverticular abscess. APPENDIX: Normal appendix. LYMPH NODES: No lymphadenopathy. MUSCULOSKELETAL: Mild multilevel spinal degenerative changes. ADDITIONAL FINDINGS: Small fat-containing ventral hernia. IMPRESSION: Moderate diverticulosis with surrounding inflammation involving the sigmoid colon compatible with acu te diverticulitis. No abscess is seen. Follow-up colonoscopy may be of value if not recently performed.
[2024-11-21] MEDS ORDERED: AMOX/K CLAV 875 MG TAB ONE (13:10)
[2024-11-21 13:31] LABS: Urine Culture Reflex Order REFLEXED; Urine Microscopic Reflex YN ORDER UMIC; Urine WBC Clump Rare /HPF (None Seen); Urine Yeast (Budding) Trace /HPF (None Seen)
--- NOTE | 2024-11-21 13:55 | ER ---
Nurse's Notes [facility] Name: Elen Rapp Age: 84 yrs Sex: Female : 1940 Arrival Date: 11/21/2024 Time: 10:34 Bed 13 Private MD: Diagnosis: Diverticulosis of intestine, part unspecified, without perforation or abscess with bleeding;UTI/ Urinary tract infection, site not specified Presentation: 11/21 10:48 Chief complaint: Patient states: STOMACH PAIN AND NAUSEA X3 DAYS, WORSE THIS MORNING. dd2 PT REPORTS HX OF DIVERTICULITIS. Coronavirus screen: At this time, the client does not indicate any symptoms associated with coronavirus-19. Ebola Screen: No symptoms or risks identified at this time. Initial Sepsis Screen: Does the patient meet any 2 criteria? No. Patient's initial sepsis screen is negative. Does the patient have a suspected source of infection? No. Patient's initial sepsis screen is negative. Risk Assessment: Do you want to hurt yourself or someone else? Patient reports no desire to harm self or others. Onset of symptoms was November 18, 2024. 10:48 Method Of Arrival: Ambulatory dd2 10:48 Acuity: YAZ 3 dd2 Triage Assessment: 10:50 General: Appears uncomfortable, well groomed, Behavior is calm, cooperative, dd2 appropriate for age. Pain: Complains of pain in right lower quadrant and left lower quadrant Pain currently is 9 out of 10 on a pain scale. GI: Abd is soft X 4 quads Abd is non tender X 4 quads Reports lower abdominal pain, nausea. Historical: - Allergies: 10:49 PROPOFOL; dd2 - PMHx: 10:49 CHF; Hypertension; Diverticulitis; Hypothyroidism; dd2 - PSHx: 10:49 Cholecystectomy; Tonsillectomy; dd2 10:50 Total abdominal hysterectomy; dd2 - Immunization history:: Adult Immunizations up to date. - Infectious Disease History:: Denies. - Social history:: Smoking status: Patient denies any tobacco usage or history of. Screenin:18 [facility] ED Fall Risk Assessment (Adult) History of falling in the last 3 months, db including since admission No falls in past 3 months (0 pts) Confusion or Disorientation No (0 pts) Intoxicated or Sedated No (0 pts) Impaired Gait No (0 pts) Mobility Assist Device Used No (0 pt) Altered Elimination No (0 pt) Score/Fall Risk Level 0 - 2 = Low Risk Oriented to surroundings, Maintained a safe environment. Abuse screen: Denies threats or abuse. Denies injuries from another. Nutritional screening: No deficits noted. Tuberculosis screening: No symptoms or risk factors identified. Assessment: 11:32 Reassessment: Patient appears in no apparent distress at this time. Patient and/or db family updated on plan of care and expected duration. Pain level reassessed. Patient is alert, oriented x 3, equal unlabored respirations, skin warm/dry/pink. General: Appears in no apparent distress. comfortable, Behavior is calm, cooperative. Neuro: Level of Consciousness is awake, alert, obeys commands, Oriented to person, place, time, situation. Cardiovascular:. Respiratory: Airway is patent Respiratory effort is even, unlabored, Respiratory pattern is regular, symmetrical. 14:18 Reassessment: Patient appears in no apparent distress at this time. Patient and/or db family updated on plan of care and expected duration. Pain level reassessed. Patient is alert, oriented x 3, equal unlabored respirations, skin warm/dry/pink. Reassessment: Patient states feeling better. Patient states symptoms have improved. GI: Bowel sounds present X 4 quads. Vital Signs: 10:48 BP 130 / 79; Pulse 88; Resp 16; Temp 98.7; Pulse Ox 98% on R/A; Weight 90.72 kg; Height dd2 5 ft. 3 in. ; Pain 9/10; 11:50 BP 133 / 62; Pulse 79; Resp 18; Pulse Ox 98% on R/A; db 13:00 BP 130 / 79; Pulse 64; Resp 16; Pulse Ox 98% ; db 14:00 BP 106 / 76; Pulse 64; Resp 16; Pulse Ox 96% ; db 10:48 Body Mass Index 35.43 (90.72 kg, 160.02 cm) dd2 10:48 Pain Scale: Adult dd2 ED Course: 10:38 Patient arrived in ED. cj3 10:40 Mejia Oquendo NP is PHCP. cr8 10:40 Malvin Escalona DO is Attending Physician. cr8 10:49 Triage completed. dd2 10:50 Arm band placed on left wrist. dd2 10:56 Mooney, Sylvia, RN is Primary Nurse. db 11:10 Inserted saline lock: 20 gauge in right antecubital area, using aseptic technique. db Blood collected. Flushed with 10 mL NS. 11:32 Initial lab(s) drawn, by ED staff, sent to lab. db 12:25 CT Abd/Pelvis - IV Contrast Only In Process Unspecified. EDMS 14:18 Patient has correct armband on for positive identification. Bed in low position. Call db light in reach. Side rails up X 1. Provided Education on: DISCHARGE AND PRESCRIPTIONS . Pulse ox on. NIBP on. Warm blanket given. Pillow given. 14:18 No provider procedures requiring assistance completed. IV discontinued, intact, db bleeding controlled, No redness/swelling at site. Administered Medications: 11:45 Drug: Ketorolac IVP 15 mg IVP once Route: IVP; Site: right antecubital; db 14:28 Follow up: Response: No adverse reaction db 11:45 Drug: Ondansetron IVP 4 mg IVP once; over 2 minutes Route: IVP; Site: right antecubital;db 14:28 Follow up: Response: No adverse reaction db 13:15 Drug: Amoxicillin-Clavulanate PO 875 mg PO once Route: PO; db 14:28 Follow up: Response: No adverse reaction db Medication: 14:18 VIS not applicable for this client. db Outcome: 13:55 Discharge ordered by . crCelina 14:18 Discharged to home ambulatory, with family, db 14:18 Condition: stable 14:18 Discharge instructions given to patient, family, Instructed on discharge instructions, follow up and referral plans. Prescriptions given X 1, 14:28 Patient left the ED. db Signatures: Dispatcher [employer] EDVA Sylvia Mooney, RN RN CATHY Negron RN RN dd2 Magui Ryder3 Mejia Oquendo NP [employer] cr8 Corrections: (The following items were deleted from the chart) 10:50 10:49 PMHx: Thyroid problem; dd2 dd2 11:32 11:10 Inserted db db
--- NOTE | 2024-11-21 13:55 | EDPHYS ---
Physician Documentation [facility] Name: Elen Rapp Age: 84 yrs Sex: Female : 1940 Arrival Date: 11/21/2024 Time: 10:34 Bed 13 Private MD: ED Physician Malvin Escalona HPI: 11/21 11:22 This 84 yrs old Female presents to ER via Ambulatory with complaints of Abdominal Pain, cr8 Nausea, Diarrhea. 11:22 Patient is an 84-year-old female with a history congestive heart failure comes to the [facility] emergency room complaining of lower abdominal pain for 3 days. Reports that she has had increased in diarrhea. Reports also a history of diverticulitis. No pain with urination but states she still in spasms in her lower abdomen. She is also nauseated. Denies fever or vomiting constipation. Reports pain is 8 out of 10. Has not take anything for the pain at home. Reports pain comes and goes.. Historical: - Allergies: 10:49 PROPOFOL; dd2 - PMHx: 10:49 CHF; Hypertension; Diverticulitis; Hypothyroidism; dd2 - PSHx: 10:49 Cholecystectomy; Tonsillectomy; dd2 10:50 Total abdominal hysterectomy; dd2 - Immunization history:: Adult Immunizations up to date. - Infectious Disease History:: Denies. - Social history:: Smoking status: Patient denies any tobacco usage or history of. ROS: 11:22 Constitutional: as per HPI cr8 Exam: 11:22 Constitutional: This is a well developed, well nourished patient who is awake, alert, cr8 and in no acute distress. Cardiovascular: Regular rate and rhythm with a normal S1 and S2. No gallops, murmurs, or rubs. Abdomen/GI: Soft with normal bowel sounds. No distension. No guarding or rebound. There is mild tenderness to the lower abdomen. No masses. No rebound. Skin: Warm, dry with normal turgor. Normal color with no rashes, no lesions, and no evidence of cellulitis. 13:30 ECG was reviewed by the Attending Physician. 8 Vital Signs: 10:48 BP 130 / 79; Pulse 88; Resp 16; Temp 98.7; Pulse Ox 98% on R/A; Weight 90.72 kg; Height dd2 5 ft. 3 in. ; Pain 9/10; 11:50 BP 133 / 62; Pulse 79; Resp 18; Pulse Ox 98% on R/A; db 13:00 BP 130 / 79; Pulse 64; Resp 16; Pulse Ox 98% ; db 14:00 BP 106 / 76; Pulse 64; Resp 16; Pulse Ox 96% ; db 10:48 Body Mass Index 35.43 (90.72 kg, 160.02 cm) dd2 10:48 Pain Scale: Adult dd2 MDM: 10:40 Medical Screening Exam initiated cr8 16:24 Data reviewed: vital signs, nurses notes, old medical records, lab test result(s), cr8 radiologic studies. Counseling: I had a detailed discussion with the patient and/or guardian regarding the historical points, exam findings, and any diagnostic results supporting the discharge/admit diagnosis, lab results, radiology results. ED course: Given work up low suspicion for acute hepatobiliary disease (including acute cholecystitis), acute pancreatitis (neg lipase), PUD and gastric perforation, acute infectious processes (pneumonia, hepatitis, pyelonephritis), acute appendicitis, vascular catastrophe, bowel obstruction or viscus perforation. Presentation not consistent with other acute, emergent causes of abdominal pain at this time. We did a CT of her abdomen pelvis. Came back showing some inflammation along the sigmoid colon consistent with diverticulitis. We did a urinalysis. It came back consistent with a UTI. Patient was given Augmentin which likely will cover both of these. Did explain that we would do urine culture to further evaluate the efficacy. Her pain was improved with Toradol. She was comfortable being discharged and going home.. 16:27 Consideration of Admission/Observation Patient was admitted/placed on observation. cr8 Considered possible admission but the patient had no fever, no significant white blood cell count elevation and pain was controlled with Toradol. Therefore going to discharge her to follow-up with her PCP.. 11/21 10:46 Order name: CBC with Diff; Complete Time: 11:31 cr8 11/21 10:46 Order name: CMP; Complete Time: 11:43 cr8 11/21 10:46 Order name: Lipase; Complete Time: 11:43 cr8 11/21 11:16 Order name: UA Rfx Mike Cult if indicated; Complete Time: 13:32 cr8 11/21 13:35 Order name: Urine Culture EDMS 11/21 12:05 Order name: CT Abd/Pelvis - IV Contrast Only; Complete Time: 12:32 cr8 11/21 10:46 Order name: IV Saline Lock; Complete Time: 11:13 cr8 EC:30 Rate is 75 beats/min. Rhythm is regular. ID interval is normal. QRS interval is cr8 prolonged. QT interval is normal. T waves are Normal. No ST changes noted. Clinical impression: Normal sinus rhythm, right bundle branch block, no STEMI, no acute ischemic changes. Interpreted by me. Administered Medications: 11:45 Drug: Ketorolac IVP 15 mg IVP once Route: IVP; Site: right antecubital; db 14:28 Follow up: Response: No adverse reaction db 11:45 Drug: Ondansetron IVP 4 mg IVP once; over 2 minutes Route: IVP; Site: right antecubital;db 14:28 Follow up: Response: No adverse reaction db 13:15 Drug: Amoxicillin-Clavulanate PO 875 mg PO once Route: PO; db 14:28 Follow up: Response: No adverse reaction db Disposition: 20:20 I was immediately available on-site in the Emergency Department for consultation in the ms3 care of the patient. Disposition Summary: 11/21/24 13:55 Discharge Ordered Notes: Location: Home cr8 Condition: Stable cr8 Diagnosis - Diverticulosis of intestine, part unspecified, without perforation or abscess with cr8 bleeding - UTI/ Urinary tract infection, site not specified cr8 Followup: cr8 - With: Emergency Department - When: As needed - Reason: Fever > 102 F, Trouble breathing, Worsening of condition Followup: cr8 - With: Private Physician - When: 2 - 3 days - Reason: Recheck today's complaints, Continuance of care, Re-evaluation by your physician Discharge Instructions: - Discharge Summary Sheet cr8 - Diverticulitis cr8 - Urinary Tract Infection, Adult cr8 Forms: - Medication Reconciliation Form cr8 - Antibiotic Education cr8 - Patient Portal Instructions cr8 - Leadership Thank You Letter cr8 Prescriptions: - Augmentin 875-125 mg Oral Tablet - take 1 tablet ORAL route every 12 hours for 10 days; 20 tablet; Refills: 0, cr8 Product Selection Permitted Signatures: Dispatcher [employer] EDLA Malvin Escalona DO DO ms3 Sylvia Mooney RN RN db CATHY CABALLERO RN RN dd2 Mejia Oquendo NP MARKETING AGENT cr8 Corrections: (The following items were deleted from the chart) 10:50 10:49 PMHx: Thyroid problem; dd2 dd2 16:28 16:24 ED course: Given work up low suspicion for acute hepatobiliary disease (including cr8 acute cholecystitis), acute pancreatitis (neg lipase), PUD and gastric perforation, acute infectious processes (pneumonia, hepatitis, pyelonephritis), acute appendicitis, vascular catastrophe, bowel obstruction or viscus perforation. Presentation not consistent with other acute, emergent causes of abdominal pain at this time. We did a CT of her. cr8
[2024-11-21 15:06] VITALS: TEMP 98.7
[2024-11-21 15:12] VITALS: BP 106/76; O2SAT 96
== END 2024-11-21 14:28 | disposition home or self-care (01) ==
LOC: ER 10:34
DX: K57.30 Diverticulosis of large intestine without perforation or abscess without bleeding (principal); N39.0 Urinary tract infection, site not specified
CPT/HCPCS: 87088; 85025; 81001; 87086; 36415; 87077; 87186; 83690; 80053; 74177; 96375; 96374; 99284; Q9967; J1885; J2405